=== PATIENT | male | born 1950 | race Caucasian/White ===

== ENCOUNTER 2023-07-28 17:45 | Inpatient (IN) | payer MEDICARE, OTHER, SELFPAY ==
[2023-07-28] VITALS (12 sets, daily range): BP systolic 95–145; BP diastolic 60–104; BMI 25.4; BMI 25.1
[2023-07-28 11:20] LABS: % Basophils 0.3 % (0-2); % Eosinophils 1.6 % (0-6); % Immature Granulocytes 0.4 % (0-0.5); % Lymphocytes 12.3 % (20.5-51.1); % Monocytes 7.5 % (1.7-9.3); % Neutrophils 77.9 % (42.2-75.2); Absolute Eosinophils 0.2 10^3/uL (0-0.7); Absolute Lymphocytes 1.2 10^3/uL (1.2-3.4); Absolute Monocytes 0.7 10^3/uL (0.1-0.6); Absolute Neutrophils 7.5 10^3/uL (1.4-6.5); Hematocrit 38.9 % (39.0-52.0); Hemoglobin 13.1 g/dL (13.0-18.0); Mean Corp Hgb Conc. 33.7 g/dL (33.0-37.0); Mean Corpuscular Hgb 27.8 pg (27.0-31.0); Mean Corpuscular Volume 82.4 fL (80.0-94.0); Mean Platelet Volume 9.4 fL (7.4-10.4); Nucleated Red Blood Cells % 0 % (-); Platelet Count 276 10^3/uL (130-400); Red Blood Cell Count 4.72 10^6/uL (4.70-6.10); Red Cell Dist. Width 14.2 % (11.5-14.5); White Blood Cell Count 9.6 10^3/uL (4.8-10.8)
[2023-07-28 11:40] LABS: INR 2.93
[2023-07-28 11:41] LABS: Albumin 2.9 g/dl (3.5-5.0); Chloride 102 mmol/L (98-107); Potassium 4.3 mmol/L (3.5-5.1); Sodium 134 mmol/L (135-145)
[2023-07-28 11:45] LABS: NT-proBNP 3380 pg/ml; Troponin I 0.013 ng/ml
[2023-07-28 11:52] LABS: ALT (SGPT) 29 U/L (0-50); AST (SGOT) 28 U/L (17-59); Alkaline Phosphatase 106 U/L (38-126); Blood Urea Nitrogen 14 mg/dl (9-20); Calcium 8.4 mg/dl (8.4-10.2); Carbon Dioxide 25 mmol/L (22-30); Estimated Creatinine Clearance 85 ml/min; Glucose 100 mg/dl (70-99); Magnesium 1.8 mg/dl (1.6-2.3); Total Protein 5.8 g/dl (6.3-8.2); eGFR > 60.00
[2023-07-28 12:22] LABS: Total Bilirubin 0.8 mg/dl (0.2-1.3)
--- NOTE | 2023-07-28 14:28 | CON.CAR ---
Addendum entered and electronically signed by Devan Aponte DO 07/28/23 16:52:
I saw and examined the patient.
The Event Sales Manager's note was reviewed and I agree with the note.
Comment:
Plan:
Recent monitor personally reviewed showing increase in AFib burden to 47% and episodes of AFib with RVR
Cont coumadin anticoagulation for MVR and AFib
Start Amiodarone load at 400 mg TID to maintain sinus as pt in sinus. Monitor QTc, currently stable.
Eventual consideration for PVI as outpt given symptomatic aFib recurrence with drop in EF to now 25-30%
Both echo today and echo from March 2023 personally reviewed.
CM likely worsened from AFib/tachy mediated.
Trend troponins, first was negative and pt had recent stress negative for ischemia.
Fatigue and reduced stamina likely secondary to increased AFib burden and worsened CM. Pt also in HFrEF.
Start IV lasix 40 mg daily. Follow Is and Os and daily wts and cr
Diuresis and CM regimen may be limited by chronic hypotension.
Cont low dose Coreg and Lisinopril. Consider Aldactone if bp can tolerate.
Cont ASA, Lipitor and Zetia for CABG hx and hyperlipidemia.
Discussed with ER and with at bedside.
Original Note:
Consultation
Consultation Request
Date/Time Consultation Requested: 07/28/2023
Date/Time Consultation Performed: 07/28/2023 at 1430
Requesting Provider: Edwin Ayala PA-C
Performing Provider: Dr. Aponte
Reason for Consultation: PEDROZA, palpitations
Medical History
-
History of Present Illness:
HPI: Ralf is a 73 year old male with PMH of CAD, ischemic CM, chronic HFrEF, paroxysmal atrial fibrillation, mitral valve replacement, GERD, LBBB, hypertension, hyperlipidemia, and anxiety who presents to ER for evaluation of ongoing dyspnea
on exertion and palpitations. He had COVID in May 2023 and then was treated for pneumonia as well. He has been having ongoing dizziness and palpitations. He has been concerned that he has been having recurrences of atrial fibrillation. He
was recently seen in the cardiology office on 07/15/2023 and was placed on lower dose Coreg 3.125 mg twice daily. He also was arranged for a 7-day CAM monitor. He continued to feel poorly and came into ER today for further workup and evaluation.
In ER, workup thus far has been unremarkable with EKG revealing sinus rhythm. His blood pressure and heart rate are stable. Lab work also unremarkable with normal blood count and negative troponin x 1. Cardiology consulted for evaluation given
ongoing symptoms.
PMH:
CAD
NSTEMI 05/2018 with Stenting of OM2 with 3.0 x 38 mm Promus stent post dilated with 3.0 mm NC balloon
s/p CABG 06/07/2018, GIL to LAD and saphenous vein graft to PDA
Ischemic cardiomyopathy
Chronic HFrEF
Paroxysmal atrial fibrillation
Chronic Coumadin therapy
Mitral valve repair w/ [place]-Fawad izabella-chords to A2 and 26mm annuloplasty ring 06/07/2018
Re-exploration with evacuation of pericardial fluid and modified Robicsek weave reclosure 06/16/18
s/p redo #[id number] [place] [facility] mitral valve replacement 10/17/18
GERD/dysphagia, s/p esophageal dilatation 08/2018 at [facility]
Rate dependent LBBB
Hypertension
Hyperlipidemia
Anxiety/depression
h/o moderate alcohol use/abuse
Past Medical History
Past Medical History: Other (In HPI)
Past Surgical History: Cardiac (PCI of OM 2, CABGx2 05/2018, mitral valve repair 2017, mitral valve replacement 2018) and Other (Esophageal dilation, elbow surgery 05/2023)
Social History
Tobacco: Non-Smoker
Alcohol: Occasional
Drug: None
Personal:
Living: With Family
Employment: Retired
Family History
Family History: CAD
Allergies / Home Medications
Allergy/AdvReac Type Severity Reaction Status Date / Time
No Known Allergies Allergy Verified 07/28/23 10:13
Medication Instructions Recorded Confirmed Type
trazodone 100 mg tablet 100 mg PO HS 05/15/18 10/22/19 History
aspirin 81 mg tablet,delayed 81 mg PO DAILY 06/24/18 10/22/19 Rx
release
furosemide 20 mg tablet 20 mg PO DAILYPRN PRN edema 07/10/18 10/22/19 History
acetaminophen 325 mg tablet 650 mg PO Q4HPRN PRN HEADACHE OR 10/23/18 10/22/19 Rx
FEVER > 101F
atorvastatin 40 mg tablet 80 mg PO QPM 10/22/19 10/22/19 History
carvedilol 3.125 mg tablet 3.125 mg PO BID 10/22/19 10/22/19 History
lisinopril 5 mg tablet 5 mg PO DAILY 10/22/19 10/22/19 History
loratadine 10 mg tablet 10 mg PO DAILY PRN seasonal 10/22/19 10/22/19 History
allergies
warfarin 4 mg tablet (Jantoven) 8 mg PO QPM 10/22/19 10/22/19 History
Review of Systems
-
History Source: Patient
All other systems: Negative unless noted
Physical Exam
Vital Signs
Temp Pulse Resp BP Pulse Ox
98.3 F 85 17 117/77 96
07/28/23 10:10 07/28/23 14:00 07/28/23 14:00 07/28/23 14:00 07/28/23 14:00
Lab Results
07/28/23 11:08
07/28/23 11:08
Troponin I 0.013 ng/ml 07/28/23 11:08
Mai-K-Rajhuwkinib Pept 3380 pg/ml 07/28/23 11:08
Physical Exam
General: Well Developed, Well Nourished and No Apparent Distress
HEENT: Normocephalic, Anicteric and Moist Mucous Membranes
Respiratory: Clear and Non Labored Respirations
Cardiac: S1/S2 and Regular Rhythm
Musculoskeletal: No Clubbing, No Cyanosis and No Edema
Skin: Warm and Dry
Neuro: Nonfocal/Grossly Intact
Psych: Calm
Impression / Plan
-
PCP: Dr. Kanwal Schmitz
Cardiology: Dr. Aponte
Impression:
Presented with palpitations and dyspnea on exertion
Paroxysmal atrial fibrillation, burden 47% by recent monitor
Chronic Coumadin anticoagulation
CAD
NSTEMI 05/2018 with Stenting of OM2 with 3.0 x 38 mm Promus stent post dilated with 3.0 mm NC balloon
s/p CABG 06/07/2018, GIL to LAD and saphenous vein graft to PDA
Ischemic cardiomyopathy
Chronic HFrEF
Mitral valve repair w/ [place]-Fawad izabella-chords to A2 and 26mm annuloplasty ring 06/07/2018
Re-exploration with evacuation of pericardial fluid and modified Robicsek weave reclosure 06/16/18
s/p redo #29 [place] [facility] mitral valve replacement 10/17/18
GERD/dysphagia, s/p esophageal dilatation 08/2018 at [facility]
Rate dependent LBBB
Hypertension
Hyperlipidemia
Anxiety/depression
h/o moderate alcohol use/abuse
Lexiscan stress test 03/06/2023: Perfusion imaging reveals a small-medium area of mildly decreased perfusion that is fixed in the basal inferolateral segment, basal inferior segment, mid inferolateral segment, mid inferior segment, and apical inferior
segment consistent with infarction. EF 49%.
Echo 04/07/2023: EF 42%, mild concentric LVH, mild global hypokinesis, s/p # 29 mechanical [place] mitral valve with peak/mean gradients 8/4 mmHg, no MR, aortic sclerosis with trace AR, trace TR, estimated PAP 21 mmHg
Echo 07/28/2023: EF 25-30%, global hypokinesis with more hypokinesis of the anteroseptal wall and apex, biatrial enlargement, s/p #[address] [place] mechanical mitral valve prosthesis with peak/mean gradients 10/5 mmHg, trace MR
Plan:
-Presented with dyspnea on exertion and palpitations. In sinus rhythm by EKG and on review of telemetry.
-Of note, he had recent 7 day CAM monitor which revealed Afib burden is 47%.
-It is possible that he is symptomatic with recurrences of atrial fibrillation.
-Will start amiodarone loading in attempt to maintain SR and improve symptoms. Will start amiodarone 200mg BID for 1 month and then will decrease to 200mg daily thereafter
-QTc stable at 477ms.
-If he is in afib when he is seen in follow up, would arrange for CV.
-Continue coumadin for anticoagulation given Afib and mechanical mitral valve. Goal INR 2.5-3.5, ideally closer to 2.5 given prior hemorrhage
-Initial troponin negative at 0.013. Will repeat.
-Echo repeated and showed EF now down. Will admit and load with amiodarone. Will also gently diurese with IV lasix 40mg daily.
-Check orthostatic VS.
-Continue coreg at lower dose 3.125mg BID. Continue lisinopril.
-Continue aspirin, lipitor, and zetia with h/o CAD.
HPI: Ralf is a 73 year old male with PMH of CAD, ischemic CM, chronic HFrEF, paroxysmal atrial fibrillation, mitral valve replacement, GERD, LBBB, hypertension, hyperlipidemia, and anxiety who presents to ER for evaluation of ongoing dyspnea
on exertion and palpitations. He had COVID in May 2023 and then was treated for pneumonia as well. He has been having ongoing dizziness and palpitations. He has been concerned that he has been having recurrences of atrial fibrillation. He
was recently seen in the cardiology office on 07/15/2023 and was placed on lower dose Coreg 3.125 mg twice daily. He also was arranged for a 7-day CAM monitor. He continued to feel poorly and came into ER today for further workup and evaluation.
In ER, workup thus far has been unremarkable with EKG revealing sinus rhythm. His blood pressure and heart rate are stable. Lab work also unremarkable with normal blood count and negative troponin x 1. Cardiology consulted for evaluation given
ongoing symptoms.
Data Reviewed
-
EKG: Tracing Personally Visualized and interpreted
Radiology: Report Reviewed by me
Labs: Labs Reviewed by me
Old Records: Reviewed
--- NOTE | 2023-07-28 16:33 | ED.GENMED ---
History of Present Illness
General
Chief Complaint: Heart Rate Problem
Source: patient and spouse
Exam Limitations: none
Time Seen by Provider: 07/28/23 10:36
Nursing documentation reviewed up to this point in time: agreed with
Travel History
Have you had any contact with someone who has COVID-19?: No
Do you have any symptoms of coronavirus? Fever > 100 degrees, chills, cough, shortness of breath, sore throat, loss of taste or smell, muscle aches, or headache?: Yes
Symptoms:: see note
History of Present Illness
History of Present Illness:
73-year-old male with past medical history of A-fib currently on Coumadin, CHF CAD presenting to the emergency department today with concerns of worsening exercise tolerance and dyspnea on exertion over the past few weeks. Had COVID preceding the
worsening. Initially the symptoms roughly 1 month ago. Has had some mild ongoing cough but denies any fevers has had some mild intermittent left-sided chest discomfort as well described as achy made worse with coughing and palpation. Denies
vomiting has had some nausea.
Past History
Past History
ED Past Medical History: Arrthythmia (Atrial fibrillation), CAD, CHF, Psychiatric (Anxiety/depression) and Other (Pneumonia, left bundle branch block, anemia, mitral valve replacement)
Social History
Tobacco: Non-smoker
Alcohol: None
Drug: None
Personal:
Living: with family
Review of Systems
Review of Systems
Allergies reviewed?: Yes
All Other Systems: ROS reviewed and negative except as documented in HPI and ROS
Phy Exam
Physical Exam
Physical Exam:
GENERAL: Alert , in no apparent distress
EYE: pupils equal and reactive
NECK: Supple, no significant adenopathy.
ENT: o/p clr, mmm.
CARDIAC: Regular rate and rhythm .
LUNGS: Clear breath sounds bilaterally, no acute respiratory distress, no wheezes/rales/rhonchi
ABDOMEN: Soft, without focal tenderness, no r/g, no cvat
NEUROLOGICAL: Alert and oriented, no focal neuro deficits
SKIN: Warm and dry, skin intact.
MUSCULOSKELETAL: No edema, well perfused.
PSYCH: Normal and appropriate interaction.
Course
Orders/Labs/Results
Orders:
Orders
07/28/23 10:38
Electrocardiogram (*1) Stat
Reason for Study: Other
Other Reason for Exam: chest pain
EKG- Treatment ONCE
CR Chest - 2 Views Urgent
Comment:
Reason For Exam: cp
07/28/23 11:08
Complete Blood Count/With Diff Urgent
Comprehensive Metabolic Panel Urgent
Magnesium Urgent
NT-proBNP Urgent
PT/INR [Prothrombin Time] Urgent
Troponin I Urgent
07/28/23 14:03
Orthostatic VS- Treatment ONCE
07/28/23 14:26
Echo 2D MMode Color/Doppler Routine
Reason for Study: cardiomyopathy, fatigue, PEDROZA
07/28/23 Dinner
Cholesterol Lowering
At Your Request: Full Participation
Does patient need a safe tray?: No
Cholesterol Lowering: Sodium, 2 Gram
07/28/23 16:59
Admit/Transfer Patient As Directed
Co-Sign Provider:
Level of Care: Inpatient admission
Assign to:: Telemetry
Physician / Group: augusto
Diagnosis: chf exacerbation
Reason for Telemetry: Pulmonary Edema
Date to Stop Telemetry: 07/31/23
Time to Stop Telemetry: 11:00
Reason for Hospitalization: chf exacerbation
Expected length of stay greater than two midnights?: Yes
ELOS- Estimated Length of Stay in days: 2
I certify the patient meets the requirements for IP care: Yes
Code Status As Directed
Resuscitation Status: Full Code
07/28/23 17:04
Orthostatic Vital Signs As Directed
Orthostatic VS Frequency: Now
07/28/23 17:22
Troponin I Urgent
07/28/23 22:00
Amiodarone [Pacerone] 400 mg PO TID
07/29/23 06:00
Electrocardiogram (*1) IN AM
Reason for Study: QTc Monitoring
07/29/23 08:00
Furosemide [Lasix] 40 mg IV DAILY
07/31/23 11:00
DC Protocol for Telemetry ONCE
Abnormal Lab Results
07/28/23
11:08
Hct 38.9 L %
(39.0-52.0)
Absolute Neuts (auto) 7.5 H 10^3/uL
(1.4-6.5)
Absolute Monos (auto) 0.7 H 10^3/uL
(0.1-0.6)
Neutrophils % 77.9 H %
(42.2-75.2)
Lymphocytes % 12.3 L %
(20.5-51.1)
PT 31.0 H Sec
(11.4-14.6)
Sodium 134 L mmol/L
(135-145)
Glucose 100 H mg/dl
(70-99)
Total Protein 5.8 L g/dl
(6.3-8.2)
Albumin 2.9 L g/dl
(3.5-5.0)
07/28/23 11:08
07/28/23 11:08
Vital Signs
Initial and Last Documented VS:
Initial Vital Signs
Temp Pulse Resp BP Pulse Ox
98.3 F 97 16 119/79 96
07/28/23 10:10 07/28/23 10:10 07/28/23 10:10 07/28/23 10:10 07/28/23 10:10
Last Documented Vital Signs
Temp Pulse Resp BP Pulse Ox
98.3 F 95 16 129/104 94
07/28/23 10:10 07/28/23 15:37 07/28/23 14:45 07/28/23 15:36 07/28/23 15:37
MDM/Problems Addressed
MDM/Problems Addressed:
73-year-old male presenting to the emergency department today with concerns of worsening shortness of breath specifically with exertion over the past few weeks this worsening occurred immediately after having COVID. Here vital signs are normal
patient generally in no distress. Lungs are clear heart sounds normal. Not in A-fib here labs showing mildly elevated BNP in the 3000 otherwise labs unremarkable initial troponin negative. Case was discussed with cardiology that saw the patient
and did an echo while in the ER. The echo showed decreased ejection fraction to roughly 30%. Was recommended that he get admitted for further treatment for heart failure. Given initial dose of Lasix in the ER.
*Critical Care Note
Total Time (30-74mins, 75-104mins- exclusive of procedures): Not Applicable
ED Attending Note
-
Portions of this chart may have been created with voice recognition software.� Occasional wrong word or��sound alike� substitutions may have occurred due to the inherent limitations of voice recognition software.
Discharge Plan
Departure
Patient Disposition: Admit
Date of Disposition: 07/28/23
Time of Disposition: 16:33
Admit to: Telemetry
Admit to doctor: Cheryl
Presentation/result/management discussed w/ accepting MD/DO: Hospitalist
Patient with high blood pressure during this ER visit?: No
Condition: Good
Covid-19: Not Applicable
Discharge Problem:
Heart failure
Prescriptions:
No Action
trazodone 100 MG tablet
100 mg PO HS
aspirin 81 MG tablet,delayed release (DR/EC)
81 mg PO DAILY 0RF
carvedilol 3.125 MG tablet
3.125 mg PO BID
warfarin [Jantoven] 4 MG tablet
7 mg PO QPM
lisinopril 5 MG tablet
2.5 mg PO DAILY
atorvastatin [Lipitor] 80 mg Tablet
80 mg PO QPM
acetaminophen [Tylenol Extra Strength] 500 mg Tablet
1,000 mg PO HS
Referrals:
Princess Schmitz MD [Family Provider] -
Interventions
Interventions:
*Risk Screen - Suicide Last Done: 07/28/23 10:53
*General Assessment Last Done: 07/28/23 10:53
*Neglect/Abuse Screening Last Done: 07/28/23 10:53
ED- Fall Risk Assessment Last Done: 07/28/23 10:53
*ED COVID-19 Vaccine History Last Done: 07/28/23 10:53
ED- Cardiac Assessment Last Done: 07/28/23 10:53
ED- Pulmonary Assessment Last Done: 07/28/23 10:53
--- NOTE | 2023-07-28 17:02 | HPS.HSE ---
Family Physician
-
Family Physician: Princess Schmitz
Chief Complaint
-
shortness of breath
History of Present Illness
73-year-old male with past medical history of CAD status post CABG, ischemic cardiomyopathy, HFrEF, paroxysmal atrial fibrillation on Coumadin, mechanical mitral valve replacement,, left bundle branch block, hypertension, GERD, hyperlipidemia,
anxiety, alcohol use disorder, presenting with persistent weakness since May when he had COVID infection. He states since then he has had a lingering cough which is slowly getting better. This is associated with shortness of breath with
exertion as well as dizziness when he stands up. He has chest soreness with palpation as well as cough. He denies palpitations but denies passing out. Denies any fevers or chills. Denies any lower extreme edema. He has lost 14 pounds since
May but has gained 4 pounds in the past week as per his bike technician.
Patient denies smoking. When he drinks alcohol he drinks 1 beer per day until the case runs out. His last drink was a week ago.
Medical History
Past Medical History
Past Medical History: Reports Other (CAD status post CABG, ischemic cardiomyopathy, HFrEF, paroxysmal atrial fibrillation on Coumadin, mechanical mitral valve replacement,, left bundle branch block, hypertension, GERD, hyperlipidemia, anxiety,
alcohol use disorder,)
Past Surgical History: Reports Other (Cardiac (PCI of OM 2, CABGx2 05/2018, mitral valve repair 2017, mitral valve replacement 2018) and Other (Esophageal dilation, elbow surgery 05/2023))
Social History
Tobacco: Non-smoker
Alcohol: Occasional
Drug: None
Family History
Family History: Not pertinent
Allergies / Home Medications
Allergies reflects when Allergies were last updated in [employer].
Home Medications with original date entered in [employer]
Allergy/Medication List:
Allergies
Allergy/AdvReac Type Severity Reaction Status Date / Time
No Known Allergies Allergy Verified 07/28/23 10:13
Home Medications
trazodone 100 mg tablet 100 mg PO HS 05/15/18
aspirin 81 mg tablet,delayed release 81 mg PO DAILY 06/24/18
carvedilol 3.125 mg tablet 3.125 mg PO BID 10/22/19
lisinopril 5 mg tablet 2.5 mg PO DAILY 10/22/19
warfarin 4 mg tablet (Jantoven) 7 mg PO QPM 10/22/19
acetaminophen 500 mg tablet (Tylenol Extra Strength) 1,000 mg PO HS 07/28/23
atorvastatin 80 mg tablet (Lipitor) 80 mg PO QPM 07/28/23
Review of Systems
-
History Source: Patient
A 12 point ROS was completed and negative except as noted: Yes
Constitutional: Reports No Symptoms
EENT: Reports No Symptoms
Respiratory: Reports See HPI
Cardiac: Reports See HPI
Abdomen/GI: Reports No Symptoms
: Reports No Symptoms
Musculoskeletal: Reports No Symptoms
Skin: Reports No Symptoms
Neurological: Reports No Symptoms
Endocrine: Reports No Symptoms
Hematologic/Lymphatic: Reports No Symptoms
Psych: Reports No Symptoms
Physical Exam
Vital Signs
Vital Signs
Temp Pulse Resp BP Pulse Ox
98.3 F 95 16 129/104 94
07/28/23 10:10 07/28/23 15:37 07/28/23 14:45 07/28/23 15:36 07/28/23 15:37
Physical Exam
General: Well Developed, Well Nourished and No Apparent Distress
HEENT: NormoCephalic, Moist mucous membranes and Atraumatic
Respiratory: Clear
Cardiac: S1/S2 and Regular Rhythm; No Murmur or Rub
GI: Soft, Non Tender, Non Distended and Normal Bowel Sounds; No Organomegaly
Rectal: Deferred by Provider
Musculoskeletal: No Clubbing, No Cyanosis and No Edema
Skin: No Rash
Neuro: Nonfocal/grossly intact
Laboratory Results
-
07/28/23 11:08
07/28/23 11:08
Laboratory Results
PT 31.0 Sec (11.4-14.6) H 07/28/23 11:08
INR 2.93 07/28/23 11:08
Total Bilirubin 0.8 mg/dl (0.2-1.3) 07/28/23 11:08
AST 28 U/L (17-59) 07/28/23 11:08
ALT 29 U/L (0-50) 07/28/23 11:08
Alkaline Phosphatase 106 U/L (38-126) 07/28/23 11:08
Troponin I 0.013 ng/ml 07/28/23 11:08
Data Reviewed
-
Lab Data: Labs Reviewed by me
Old Records: Reviewed
Impression/Plan
-
IMPRESSION:
PLAN:
# Acute on chronic HFrEF exacerbation
# Ischemic cardiomyopathy
-Cardiac BNP 3300
-Chest x-ray shows small new right pleural effusion
-40 IV Lasix daily
-Check I's and O's, daily weights
-Cardiology following
# Likely recurrences of atrial fibrillation
-EKG shows sinus rhythm with first-degree block, left interventional
-Recent CAM monitor with A-fib burden of 47%
-Amiodarone loading as per cardiology
-Check orthostatic vitals
-Continue low-dose Coreg
#Non-OH troponin elevation
#CAD status post CABG
-Troponin 0.013
-Trend troponins
-Continue aspirin, Lipitor,
History of mitral valve replacement with mechanical valve
-INR 2.93
-Goal INR 2.5-3.5
-Continue Coumadin
History of left bundle branch block
Essential hypertension
-Continue lisinopril
GERD
Hyperlipidemia
-Continue statin
Anxiety
-Continue trazodone
History of alcohol use disorder
Full code
DVT prophylaxis- Coumadin
Cardiac diet
[2023-07-28 17:58] LABS: Troponin I 0.016 ng/ml
--- NOTE | 2023-07-28 18:37 | PTCARENOTE ---
Received patient from ER at 1820 awake alert and oriented . denies any c/o pain or discomfort. Gait slow and steady, reports having a fall before Thanksgiving- he was vacuuming wifes car and tripped over the shop vac chord. Aware to ring for
assistance. With at present , call walker in reach.Having dinner at present.
[2023-07-28 19:27] LABS: Troponin I 0.016 ng/ml
[2023-07-28] MEDS: LIPITOR 80 MG PO (20:13)
[2023-07-28] MEDS: COUMADIN 5 MG PO (20:13)
[2023-07-28] MEDS: COUMADIN 2 MG PO (20:14)
[2023-07-28] MEDS: COREG 3.125 MG PO (20:22)
[2023-07-28] MEDS: TYLENOL 1000 MG PO (21:58)
[2023-07-28] MEDS: PACERONE 400 MG PO (21:58)
[2023-07-28] MEDS: DESYREL 100 MG PO (21:59)
[2023-07-29] VITALS (7 sets, daily range): BP systolic 100–127; BP diastolic 52–80; PULSE 71–80; BMI 24.6
[2023-07-29 01:09] LABS: Troponin I 0.014 ng/ml
[2023-07-29 07:10] LABS: % Basophils 0.3 % (0-2); % Eosinophils 3.1 % (0-6); % Immature Granulocytes 0.3 % (0-0.5); % Lymphocytes 16.2 % (20.5-51.1); % Monocytes 9.3 % (1.7-9.3); % Neutrophils 70.8 % (42.2-75.2); Absolute Eosinophils 0.2 10^3/uL (0-0.7); Absolute Monocytes 0.6 10^3/uL (0.1-0.6); Absolute Neutrophils 4.4 10^3/uL (1.4-6.5); Hematocrit 38.6 % (39.0-52.0); Hemoglobin 12.5 g/dL (13.0-18.0); Mean Corp Hgb Conc. 32.4 g/dL (33.0-37.0); Mean Corpuscular Hgb 27.6 pg (27.0-31.0); Mean Corpuscular Volume 85.2 fL (80.0-94.0); Mean Platelet Volume 9.2 fL (7.4-10.4); Nucleated Red Blood Cells % 0 % (-); Platelet Count 235 10^3/uL (130-400); Red Blood Cell Count 4.53 10^6/uL (4.70-6.10); Red Cell Dist. Width 14.2 % (11.5-14.5); White Blood Cell Count 6.2 10^3/uL (4.8-10.8)
[2023-07-29 07:12] LABS: INR 3.06; PT 32.1 Sec (11.4-14.6)
[2023-07-29 07:26] LABS: Troponin I < 0.012 ng/ml
--- NOTE | 2023-07-29 08:37 | W.PN.HOSP.TC ---
Today's Communication/Plan
-
see bold
Assessment / Plan
Assessment / Plan
HPI: 73-year-old male with past medical history of CAD status post CABG, ischemic cardiomyopathy, HFrEF, paroxysmal atrial fibrillation on Coumadin, mechanical mitral valve replacement,, left bundle branch block, hypertension, GERD, hyperlipidemia,
anxiety, alcohol use disorder, presenting with persistent weakness since May when he had COVID infection.� He states since then he has had a lingering cough which is slowly getting better.� This is associated with shortness of breath with
exertion as well as dizziness when he stands up.� He has chest soreness with palpation as well as cough.� He denies palpitations but denies passing out.� Denies any fevers or chills.� Denies any lower extreme edema.� He has lost 14 pounds since
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
#Acute on chronic HFrEF exacerbation
#Ischemic cardiomyopathy
Cardiac BNP 3300
Chest x-ray shows small new right pleural effusion
Appreciate cardiology input, improving on Lasix 40 mg IV daily
Trend creatinine, trend daily weights
# Paroxysmal atrial fibrillation
EKG shows sinus rhythm with first-degree block, left interventional
Recent CAM monitor with A-fib burden of 47%
Amiodarone loading as per cardiology
Continue low-dose Coreg
#Non-CT troponin elevation
#CAD status post CABG
Serial troponins negative, continue aspirin, coreg, lisinopril, and Lipitor
#History of mitral valve replacement with mechanical valve
INR therapeutic, continue Coumadin
History of left bundle branch block
GERD
Hyperlipidemia
-Continue statin
Anxiety
-Continue trazodone
History of alcohol use disorder
DVT prophylaxis- Coumadin
Full code
Physical Exam
General: No acute distress
HEENT: Normocephalic, Atraumatic, EOMI, MMM
Respiratory: Clear to Auscultation bilaterally
Cardiac: Normal S1/S2, Regular Rate and Rhythm
GI: Soft, Nontender, Nondistended, Normal Bowel Sounds
Extremities: No Clubbing, Cyanosis
Mild bilateral lower extremity edema
Anticipated Discharge: Within 24 hours
Subjective/Interval History
-
Date of Service: July 29, 2023
Orthopnea improved.
Objective Data
-
Labs:
Laboratory Results
07/29/23
06:50
WBC 6.2
Hgb 12.5 L
Hct 38.6 L
Plt Count 235
PT 32.1 H
INR 3.06
Sodium Pending
Potassium Pending
Chloride Pending
Carbon Dioxide Pending
BUN Pending
Creatinine Pending
Glucose Pending
Calcium Pending
Total Bilirubin Pending
AST Pending
ALT Pending
Alkaline Phosphatase Pending
Vital Signs:
Vital Signs
Temp Pulse Resp BP Pulse Ox
97.6 F 70 18 101/52 97
07/29/23 03:30 07/29/23 03:30 07/29/23 03:30 07/29/23 03:30 07/29/23 03:30
I&O
07/28/23 07/29/23 07/30/23
06:59 06:59 06:59
Intake Total 240 / 240
Output Total 125 / 125
Balance 115 / 115
[2023-07-29] MEDS: ZESTRIL 2.5 MG PO (08:45)
[2023-07-29 08:46] LABS: ALT (SGPT) 28 U/L (0-50); AST (SGOT) 26 U/L (17-59); Albumin 2.9 g/dl (3.5-5.0); Alkaline Phosphatase 107 U/L (38-126); Blood Urea Nitrogen 12 mg/dl (9-20); Calcium 8.4 mg/dl (8.4-10.2); Carbon Dioxide 31 mmol/L (22-30); Chloride 104 mmol/L (98-107); Estimated Creatinine Clearance 68 ml/min; Glucose 91 mg/dl (70-99); Potassium 4.6 mmol/L (3.5-5.1); Sodium 133 mmol/L (135-145); Total Bilirubin 0.8 mg/dl (0.2-1.3); Total Protein 5.4 g/dl (6.3-8.2); eGFR > 60.00
[2023-07-29] MEDS: COREG 3.125 MG PO ×2 (08:46→20:13)
[2023-07-29] MEDS: ASPIR LOW (ENTERIC COATED) 81 MG PO (08:47)
[2023-07-29] MEDS: PACERONE 400 MG PO ×3 (08:47→21:16)
[2023-07-29] MEDS: LASIX 40 MG IV (08:48)
[2023-07-29] MEDS: COUMADIN 5 MG PO (17:11)
[2023-07-29] MEDS: LIPITOR 80 MG PO (17:11)
[2023-07-29] MEDS: COUMADIN 2 MG PO (17:12)
--- NOTE | 2023-07-29 17:33 | CM ---
cardroom manager reviewed patient's chart and met with patient and patient lives with spouse in a one story home with basement, patient is independent with adl's and ambulation, no dme, patient drives, patient has a prescription plan and uses [facility]
pharm[facility].
PCP: Princess Schmitz
Plan; Home when stable, no needs.
--- NOTE | 2023-07-29 17:46 | W.PN.CARDCBS ---
Today's Communication / Plan
-
cont IV lasix. weight down to 186
Cont Amio load
Afib burden donw overall
Creat normal
Impression / Plan
-
PCP: Dr. Kanwal Schmitz
Cardiology: Dr. Aponte
Impression:
Presented with palpitations and dyspnea on exertion
Paroxysmal atrial fibrillation, burden 47% by recent monitor
Chronic Coumadin anticoagulation
CAD
NSTEMI 05/2018 with Stenting of OM2 with 3.0 x 38 mm Promus stent post dilated with 3.0 mm NC balloon
s/p CABG 06/07/2018, GIL to LAD and saphenous vein graft to PDA
Ischemic cardiomyopathy
Chronic HFrEF
Mitral valve repair w/ [place]-Fawad izabella-chords to A2 and 26mm annuloplasty ring 06/07/2018
Re-exploration with evacuation of pericardial fluid and modified Robicsek weave reclosure 06/16/18
s/p redo #29 [employer]ian mitral valve replacement 10/17/18
GERD/dysphagia, s/p esophageal dilatation 08/2018 at [facility]
Rate dependent LBBB
Hypertension
Hyperlipidemia
Anxiety/depression
h/o moderate alcohol use/abuse
Lexiscan stress test 03/06/2023: Perfusion imaging reveals a small-medium area of mildly decreased perfusion that is fixed in the basal inferolateral segment, basal inferior segment, mid inferolateral segment, mid inferior segment, and apical inferior
segment consistent with infarction. EF 49%.
Echo 04/07/2023: EF 42%, mild concentric LVH, mild global hypokinesis, s/p # 29 mechanical [place] [employer]ian mitral valve with peak/mean gradients 8/4 mmHg, no MR, aortic sclerosis with trace AR, trace TR, estimated PAP 21 mmHg
Echo 07/28/2023: EF 25-30%, global hypokinesis with more hypokinesis of the anteroseptal wall and apex, biatrial enlargement, s/p #[address] Willian mechanical mitral valve prosthesis with peak/mean gradients 10/5 mmHg, trace MR
Plan:
-cont Amiodarone load. Afib burden has decreased.
-cont Iv Lasix. weight is down.
-Continue coumadin for anticoagulation given Afib and mechanical mitral valve. Goal INR 2.5-3.5, ideally closer to 2.5 given prior hemorrhage
-Initial troponin negative at 0.013. Will repeat.
-Check orthostatic VS.
-Continue coreg at lower dose 3.125mg BID. Continue lisinopril.
-Continue aspirin, lipitor, and zetia with h/o CAD.
HPI: Ralf is a 73 year old male with PMH of CAD, ischemic CM, chronic HFrEF, paroxysmal atrial fibrillation, mitral valve replacement, GERD, LBBB, hypertension, hyperlipidemia, and anxiety who presents to ER for evaluation of ongoing dyspnea
on exertion and palpitations. He had COVID in May 2023 and then was treated for pneumonia as well. He has been having ongoing dizziness and palpitations. He has been concerned that he has been having recurrences of atrial fibrillation. He
was recently seen in the cardiology office on 07/15/2023 and was placed on lower dose Coreg 3.125 mg twice daily. He also was arranged for a 7-day CAM monitor. He continued to feel poorly and came into ER today for further workup and evaluation.
In ER, workup thus far has been unremarkable with EKG revealing sinus rhythm. His blood pressure and heart rate are stable. Lab work also unremarkable with normal blood count and negative troponin x 1. Cardiology consulted for evaluation given
ongoing symptoms.
Progress Note - Risk Control Specialist
Subjective
Date of Service: July 29, 2023
feeling better. diuresing well.
Objective
Labs:
07/29/23 06:50
07/29/23 06:50
Labs
Hgb 12.5 g/dL (13.0-18.0) L 07/29/23 06:50
Hct 38.6 % (39.0-52.0) L 07/29/23 06:50
Plt Count 235 10^3/uL (130-400) 07/29/23 06:50
PT 32.1 Sec (11.4-14.6) H 07/29/23 06:50
INR 3.06 07/29/23 06:50
Sodium 133 mmol/L (135-145) L 07/29/23 06:50
Potassium 4.6 mmol/L (3.5-5.1) 07/29/23 06:50
BUN 12 mg/dl (9-20) 07/29/23 06:50
Creatinine 1.1 mg/dL (0.7-1.3) 07/29/23 06:50
Glucose 91 mg/dl (70-99) 07/29/23 06:50
Troponins
07/28/23 07/28/23 07/28/23
11:08 17:22 18:52
Troponin I 0.013 0.016 0.016
07/29/23 07/29/23
00:40 06:50
Troponin I 0.014 < 0.012
Vital Signs and I&O:
Vital Signs
Temp Pulse Resp BP Pulse Ox
98.0 F 93 18 112/71 95
07/29/23 15:30 07/29/23 15:30 07/29/23 15:30 07/29/23 15:30 07/29/23 15:30
Vital Signs
Temp Pulse Resp BP Pulse Ox
98.0 F 93 18 112/71 95
07/29/23 15:30 07/29/23 15:30 07/29/23 15:30 07/29/23 15:30 07/29/23 15:30
Intake & Output
07/27/23 07/28/23 07/29/23 07/30/23
06:59 06:59 06:59 06:59
Intake Total 240 / 240
Output Total 125 / 125
Balance 115 / 115
Physical Exam
Physical Exam
GEN: No distress, awake, Ox3
HEENT: supple, anicteric, mmm
LUNGS: scatt rhonchi
CV: Reg, S1/S2, 1/6 syst LSB, no gallop
ABD: soft, BS+, NT/ND
EXT: No edema
NEURO: Gross non-focal
SKIN: No rash
[2023-07-29] MEDS: TYLENOL 1000 MG PO (21:16)
[2023-07-29] MEDS: DESYREL 100 MG PO (21:16)
[2023-07-30 03:32] VITALS: BP 96/57
[2023-07-30 05:24] VITALS: BMI 24.3
[2023-07-30 07:22] LABS: Hematocrit 37.3 % (39.0-52.0); Hemoglobin 12.1 g/dL (13.0-18.0); Mean Corp Hgb Conc. 32.4 g/dL (33.0-37.0); Mean Corpuscular Hgb 27.2 pg (27.0-31.0); Mean Corpuscular Volume 83.8 fL (80.0-94.0); Mean Platelet Volume 9.3 fL (7.4-10.4); Platelet Count 228 10^3/uL (130-400); Red Blood Cell Count 4.45 10^6/uL (4.70-6.10); Red Cell Dist. Width 14.2 % (11.5-14.5); White Blood Cell Count 6.4 10^3/uL (4.8-10.8)
[2023-07-30 07:30] VITALS: BP 91/52
[2023-07-30 07:40] LABS: Blood Urea Nitrogen 17 mg/dl (9-20); Calcium 8.6 mg/dl (8.4-10.2); Carbon Dioxide 30 mmol/L (22-30); Chloride 99 mmol/L (98-107); Estimated Creatinine Clearance 74 ml/min; Glucose 102 mg/dl (70-99); Magnesium 1.9 mg/dl (1.6-2.3); Phosphorus 3.5 mg/dl (2.5-4.5); Potassium 4.3 mmol/L (3.5-5.1); Sodium 134 mmol/L (135-145); eGFR > 60.00
--- NOTE | 2023-07-30 07:59 | W.PN.HOSP.TC ---
Today's Communication/Plan
-
Cleared by cardiology for discharge
Assessment / Plan
Assessment / Plan
HPI: 73-year-old male with past medical history of CAD status post CABG, ischemic cardiomyopathy, HFrEF, paroxysmal atrial fibrillation on Coumadin, mechanical mitral valve replacement,, left bundle branch block, hypertension, GERD, hyperlipidemia,
anxiety, alcohol use disorder, presenting with persistent weakness since May when he had COVID infection.� He states since then he has had a lingering cough which is slowly getting better.� This is associated with shortness of breath with
exertion as well as dizziness when he stands up.� He has chest soreness with palpation as well as cough.� He denies palpitations but denies passing out.� Denies any fevers or chills.� Denies any lower extreme edema.� He has lost 14 pounds since
May but has gained 4 pounds in the past week as per his surgery aide.
#Acute on chronic HFrEF exacerbation
#Ischemic cardiomyopathy
Cardiac BNP 3300
Chest x-ray shows small new right pleural effusion
Appreciate cardiology input, resolving on Lasix 40 mg IV daily
Cleared by cardiology for discharge on Lasix 40 mg p.o. daily
Follow-up with Dr. Aponte in the office
# Paroxysmal atrial fibrillation
EKG shows sinus rhythm with first-degree block, left interventional
Recent CAM monitor with A-fib burden of 47%
Continue low-dose Coreg
Cardiology recommends discharge on amiodarone 200 mg twice a day for 1 month, then 200 mg daily
#Non-UT troponin elevation
#CAD status post CABG
Serial troponins negative
Continue aspirin, coreg, lisinopril, and Lipitor
#History of mitral valve replacement with mechanical valve
INR therapeutic, continue Coumadin
History of left bundle branch block
GERD
Hyperlipidemia
-Continue statin
Anxiety
-Continue trazodone
History of alcohol use disorder
DVT prophylaxis- Coumadin
Full code
Physical Exam
General: No acute distress
HEENT: Normocephalic, Atraumatic, EOMI, MMM
Respiratory: Clear to Auscultation bilaterally
Cardiac: Normal S1/S2, Regular Rate and Rhythm
GI: Soft, Nontender, Nondistended, Normal Bowel Sounds
Extremities: No Clubbing, Cyanosis
Mild bilateral lower extremity edema
Anticipated Discharge: Today
Subjective/Interval History
-
Date of Service: July 30, 2023
Reports feeling much better. No shortness of breath with ambulation, orthopnea continues to improve.
Objective Data
-
Labs:
Laboratory Results
07/30/23
06:50
WBC 6.4
Hgb 12.1 L
Hct 37.3 L
Plt Count 228
Sodium 134 L
Potassium 4.3
Chloride 99
Carbon Dioxide 30
BUN 17
Creatinine 1.0
Glucose 102 H
Calcium 8.6
Vital Signs:
Vital Signs
Temp Pulse Resp BP Pulse Ox
97.8 F 62 18 96/57 100
07/30/23 03:32 07/30/23 03:32 07/30/23 03:32 07/30/23 03:32 07/30/23 03:32
I&O
07/29/23 07/30/23 07/31/23
06:59 06:59 06:59
Intake Total 240 / 240 1730 / 1730
Output Total 125 / 125 1400 / 1400
Balance 115 / 115 330 / 330
[2023-07-30] MEDS: ASPIR LOW (ENTERIC COATED) 81 MG PO (09:50)
[2023-07-30] MEDS: COREG 3.125 MG PO (09:51)
[2023-07-30] MEDS: LASIX 40 MG IV (09:53)
[2023-07-30] MEDS: PACERONE 400 MG PO (09:57)
--- NOTE | 2023-07-30 10:34 | PTCARENOTE ---
am BP 91/52- Dr Nunez notified. AM Lisinoprandrew notified .
[2023-07-30] MEDS: ZESTRIL PO (10:39)
[2023-07-30 11:11] VITALS: BP 121/69
--- NOTE | 2023-07-30 13:21 | W.DCSUMMARY ---
Discharge Summary
Discharge Data
Date of Admission: 07/28/23
Date of Discharge: 07/30/23
-
Pending Results: No
Hospital Course
Discharge diagnosis:
Acute on chronic heart failure with reduced ejection fraction
Ischemic cardiomyopathy
Paroxysmal atrial fibrillation
Coronary artery disease status post coronary artery bypass graft surgery
History of mitral valve replacement with mechanical valve on Coumadin
History of left bundle branch block
Gastroesophageal reflux disease
Hyperlipidemia
Anxiety
Chronic obstructive pulmonary disease
Consults: Cardiology
Chest x-ray:
1). Chronic obstructive pulmonary disease with small new right pleural effusion
2). Stable postoperative changes with mild stable interstitial scarring in the left perihilar region and lower left lung
Hospital course:
73-year-old male with a past medical history of CAD status post CABG, ischemic cardiomyopathy, HFrEF, paroxysmal atrial fibrillation on Coumadin, mechanical mitral valve replacement, left bundle branch block, hypertension, GERD, hyperlipidemia,
anxiety, and alcohol use disorder, presented with dyspnea with activity, cough, and orthopnea. Patient was seen in conjunction with cardiology, and treated with IV Lasix for acute heart failure with a reduced ejection fraction.
Patient also has paroxysmal atrial fibrillation. He was loaded with amiodarone, and continued on his low-dose Coreg.
After several days, his breathing improved. He is medically stable and cleared by cardiology for discharge. Cardiology recommends he take amiodarone 200 mg twice a day for 1 week, followed by 200 mg daily. He is also discharged on Lasix 40 mg
p.o. daily.
He has been instructed to follow-up with cardiology in the office as well as his primary care doctor 1 week.
Disposition: Home self-care
Discharge planning: Required 36 minutes
Discharge Plan
-
Patient Disposition: Home (Routine Discharge)
Discharge Diagnosis/Procedures: Congestive heart failure, atrial fibrillation, mechanical mitral valve replacement on Coumadin
Condition: Good
Diet: Low Cholesterol and 2 Gram Sodium
Activity: As tolerated
Driving Restrictions: As prior to admission
Specialty Instructions: Weigh Daily- Call MD for wt gain/loss 3 lbs overnight/5 lbs in 1 week
Activity Restrictions/Additional Instructions:
Cardiology recommends discharge on amiodarone 200 mg twice a day for 1 month, then 200 mg daily.
Take Lasix/furosemide 40 mg daily.
Follow-up with cardiology in 2-3 weeks, and your primary care doctor 1 week.
Instructions: *[facility] Heart Failure Instructions
Referrals:
Devan Aponte DO [Active] - 08/05/23 11:20 am (You have a follow up with Dr. Aponte on August 05 at 11:20 am at the [facility] and [facility] in [place]. If you can not make this please call [phone] to reschedule)
Princess Schmitz MD [Family Provider] - in one week
Prescriptions:
New
amiodarone 200 mg tablet
See Rx Instructions .ROUTE .COMPLEX Qty: 60 0RF
Rx Instructions:
Amiodarone 200 mg twice a day for 1 month, then 200 mg daily
furosemide [Lasix] 40 mg tablet
40 mg PO DAILY Qty: 30 0RF
Continued
trazodone 100 MG tablet
100 mg PO HS
aspirin 81 MG tablet,delayed release (DR/EC)
81 mg PO DAILY 0RF
carvedilol 3.125 MG tablet
3.125 mg PO BID
warfarin [Jantoven] 4 MG tablet
7 mg PO QPM
lisinopril 5 MG tablet
2.5 mg PO DAILY
atorvastatin [Lipitor] 80 mg Tablet
80 mg PO QPM
acetaminophen [Tylenol Extra Strength] 500 mg Tablet
1,000 mg PO HS
Discharge Orders:
Discharge Patient (As Directed); Ordered 07/30/23
Ordered By: Juan Luis Nunez
Discharge Date and Time
Discharge Date/Time: 07/30/23 14:25
--- NOTE | 2023-07-30 13:35 | CM ---
Home no needs.
Plan; Home no needs.
--- NOTE | 2023-07-30 14:55 | W.PN.CARDCBS ---
Addendum entered and electronically signed by Bertin Reynolds MD 07/30/23 15:30:
I saw and examined the patient.
The Party Plan Selling Distributor's note was reviewed and I agree with the note.
Comment:
GEN: No distress, awake, Ox3
HEENT: supple, anicteric, mmm
LUNGS: CTA, no wheezes/rales
CV: Irreg, S1/S2, 1/6 syst LSB, no gallop
ABD: soft, BS+, NT/ND
EXT: No edema
NEURO: Gross non-focal
SKIN: No rash
Plan:
Has diuresed 14 pounds. Will discharge on Lasix 40 mg p.o. daily. Continue Coreg and lisinopril.
Continue amiodarone load 200 mg p.o. twice daily x 4 weeks then 200 mg daily.
If A-fib burden is not significantly improve would consider ablation. Continue Coumadin
Original Note:
Today's Communication / Plan
-
Continue coreg at lower dose 3.125mg BID and low dose lisinopril
D/c home on Lasix 40 mg daily (higher dose than was taking on admission)
BMP and INR in 1 week
Continue Amiodarone 200 mg BID x 4 weeks then reduce to 200 mg daily after
Impression / Plan
-
PCP: Dr. Kanwal Schmitz
Cardiology: Dr. Aponte
Impression:
Presented with palpitations and dyspnea on exertion
Paroxysmal atrial fibrillation, burden 47% by recent monitor
Chronic Coumadin anticoagulation
CAD
NSTEMI 05/2018 with Stenting of OM2 with 3.0 x 38 mm Promus stent post dilated with 3.0 mm NC balloon
s/p CABG 06/07/2018, GIL to LAD and saphenous vein graft to PDA
Ischemic cardiomyopathy
Chronic HFrEF
Mitral valve repair w/ [place]-Fawad izbaella-chords to A2 and 26mm annuloplasty ring 06/07/2018
Re-exploration with evacuation of pericardial fluid and modified Robicsek weave reclosure 06/16/18
s/p redo #29 [employer] mitral valve replacement 10/17/18
GERD/dysphagia, s/p esophageal dilatation 08/2018 at [facility]
Rate dependent LBBB
Hypertension
Hyperlipidemia
Anxiety/depression
h/o moderate alcohol use/abuse
Lexiscan stress test 03/06/2023: Perfusion imaging reveals a small-medium area of mildly decreased perfusion that is fixed in the basal inferolateral segment, basal inferior segment, mid inferolateral segment, mid inferior segment, and apical inferior
segment consistent with infarction. EF 49%.
Echo 04/07/2023: EF 42%, mild concentric LVH, mild global hypokinesis, s/p # 29 mechanical [place] mitral valve with peak/mean gradients 8/4 mmHg, no MR, aortic sclerosis with trace AR, trace TR, estimated PAP 21 mmHg
Echo 07/28/2023: EF 25-30%, global hypokinesis with more hypokinesis of the anteroseptal wall and apex, biatrial enlargement, s/p #[address] [place] [employer] mechanical mitral valve prosthesis with peak/mean gradients 10/5 mmHg, trace MR
Plan:
Acute on chronic heart failure with reduced ejection fraction
-Weight down 7 lbs since admission, symptomatically improving/feeling better
-EF 25-30% on echo this admission.
-Continue coreg at lower dose 3.125mg BID and low dose lisinopril
-D/c home on Lasix 40 mg daily (higher dose than was taking on admission)
-Hypotension prevents initiation of Aldactone at this time
-Consider SGLT2 inhibitor as outpt
Paroxysmal Afib.
-Cornelia has improved with Amiodarone load. Continue Amiodarone 200 mg BID x 4 weeks then reduce to 200 mg daily after
-INR 3.06. Continue Coumadin for anticoagulation given Afib and mechanical mitral valve. Goal INR 2.5-3.5, ideally closer to 2.5 given prior hemorrhage
History of CAD
-Troponin negative x 5 this admission
-Continue aspirin, lipitor, and zetia.
HPI: Ralf is a 73 year old male with PMH of CAD, ischemic CM, chronic HFrEF, paroxysmal atrial fibrillation, mitral valve replacement, GERD, LBBB, hypertension, hyperlipidemia, and anxiety who presents to ER for evaluation of ongoing dyspnea
on exertion and palpitations. He had COVID in May 2023 and then was treated for pneumonia as well. He has been having ongoing dizziness and palpitations. He has been concerned that he has been having recurrences of atrial fibrillation. He
was recently seen in the cardiology office on 07/15/2023 and was placed on lower dose Coreg 3.125 mg twice daily. He also was arranged for a 7-day CAM monitor. He continued to feel poorly and came into ER today for further workup and evaluation.
In ER, workup thus far has been unremarkable with EKG revealing sinus rhythm. His blood pressure and heart rate are stable. Lab work also unremarkable with normal blood count and negative troponin x 1. Cardiology consulted for evaluation given
ongoing symptoms.
Progress Note - Knife Changer
Subjective
Date of Service: July 30, 2023
Objective
Labs:
07/30/23 06:50
07/30/23 06:50
Labs
Hgb 12.1 g/dL (13.0-18.0) L 07/30/23 06:50
Hct 37.3 % (39.0-52.0) L 07/30/23 06:50
Plt Count 228 10^3/uL (130-400) 07/30/23 06:50
PT 32.1 Sec (11.4-14.6) H 07/29/23 06:50
INR 3.06 07/29/23 06:50
Sodium 134 mmol/L (135-145) L 07/30/23 06:50
Potassium 4.3 mmol/L (3.5-5.1) 07/30/23 06:50
BUN 17 mg/dl (9-20) 07/30/23 06:50
Creatinine 1.0 mg/dL (0.7-1.3) 07/30/23 06:50
Glucose 102 mg/dl (70-99) H 07/30/23 06:50
Troponins
07/28/23 07/28/23 07/28/23
11:08 17:22 18:52
Troponin I 0.013 0.016 0.016
07/29/23 07/29/23
00:40 06:50
Troponin I 0.014 < 0.012
Vital Signs and I&O:
Vital Signs
Temp Pulse Resp BP Pulse Ox
97.9 F 78 18 121/69 95
07/30/23 11:11 07/30/23 11:11 07/30/23 11:11 07/30/23 11:11 07/30/23 11:11
Vital Signs
Temp Pulse Resp BP Pulse Ox
97.9 F 78 18 121/69 95
07/30/23 11:11 07/30/23 11:11 07/30/23 11:11 07/30/23 11:11 07/30/23 11:11
Intake & Output
07/28/23 07/29/23 07/30/23 07/31/23
06:59 06:59 06:59 06:59
Intake Total 240 / 240 1730 / 1730
Output Total 125 / 125 1400 / 1400
Balance 115 / 115 330 / 330
--- NOTE | 2023-08-06 12:59 | W.HF.CON ---
Heart Failure
- LV Function
Left ventricular function study result: LV Ejection fraction </= 35%
Ejection Fraction Percentage: 25-30
- ARNI
Patient already on ARNI: No
Heart Failure ARNI Contraindication: Hypotension
- ACEI/ARB
Patient already on ACEI/ARB: Yes
- Beta Jeison
Patient already on Evidence Based Beta Jeison: Yes
- Mineralocorticord Receptor Antagonist
Patient already on MRA: No
Heart Failure MRA Contraindication: Hypotension
- SGLT-2 Inhibitor
Patient already on SGLT-2 Inhibitor: No
Heart Failure SGLT-2 Inhibitor Contraindication: Patient Refusal
- Afib Anticoagulation
Patient already on Anticoagulation for Afib: Yes
- NYHA CHF Classification
NYHA CHF Classification Level: Class III - Symptoms w/ min exertion, interferes w/ nml daily activity
- ACC/AHA Stage
ACC/AHA Stage: Stage C: Symptomatic Heart Failure
== END 2023-07-30 14:25 | disposition home or self-care (01) | DRG 291 ==
LOC: 4 WEST ACU 17:45
PROVIDERS: Physician Assistant; ADMITTING PHYSICIAN Hospitalist; ATTENDING PHYSICIAN Family Medicine; CONSULT PHYSICIAN Nuclear Medicine Nuclear Cardiology; EMERGENCY PHYSICIAN Student in an Organized Health Care Education/Training Program; FAMILY PHYSICIAN Family Medicine
DX: I11.0 Hypertensive heart disease with heart failure (principal); I50.23 Acute on chronic systolic (congestive) heart failure; I25.5 Ischemic cardiomyopathy; E78.5 Hyperlipidemia, unspecified; Z79.82 Long term (current) use of aspirin; I48.0 Paroxysmal atrial fibrillation; F41.9 Anxiety disorder, unspecified; F32.A Depression, unspecified; I25.10 Atherosclerotic heart disease of native coronary artery without angina pectoris; Z95.1 Presence of aortocoronary bypass graft; I5A Non-ischemic myocardial injury (non-traumatic); Z79.01 Long term (current) use of anticoagulants; K21.9 Gastro-esophageal reflux disease without esophagitis
CPT/HCPCS: 71046; 80048; 80053; 83735; 83880; 84100; 84484; 85025; 85027; 85610; 93005; 93306; 99285

== ENCOUNTER → 2023-08-05 12:24 | Outpatient (REF) | payer MEDICARE, OTHER, SELFPAY ==
[2023-08-05 15:32] LABS: INR 4.54; PT 43.2 Sec (11.4-14.6)
== END ==
LOC: HWLAB 12:24
PROVIDERS: ATTENDING PHYSICIAN Nuclear Medicine Nuclear Cardiology; FAMILY PHYSICIAN Family Medicine
DX: I48.0 Paroxysmal atrial fibrillation (principal)
CPT/HCPCS: 36415; 85610

== ENCOUNTER 2023-09-23 05:47 | Day surgery (SDC) | payer MEDICARE, OTHER, SELFPAY ==
[2023-09-15 08:50] VITALS: BMI 26.5
[2023-09-23] VITALS (16 sets, daily range): BP systolic 106–137; BP diastolic 60–82; BMI 25.2
[2023-09-23 07:06] LABS: INR 3.37; PT 34.1 Sec (11.4-14.6)
[2023-09-23] MEDS: TYLENOL 650 MG PO (14:34)
[2023-09-23] MEDS: LASIX 40 MG IV (15:51)
--- NOTE | 2023-09-23 15:53 | PTCARENOTE ---
pt ready for discharge ,but unable to void. attempted 3 times.states he feels full but not in pain. notified edil montez reporting process consultant. ordered 40 iv lasix , pt takes at home and did not have today.
--- NOTE | 2023-09-23 16:03 | ITS.CL.ABL ---
Field Producer - Ablation
Ablation
Procedure Report:
ELECTROPHYSIOLOGIC STUDY AND POSSIBLE ABLATION
DATE: September 23, 2023
Primary Care Provider: Dr. Princess Abbott
Primary wire stitcher operator: Dr Devan Aponte
Manager Inspection: Reyes Zimmerman M.D.
INDICATION:
Symptomatic Atrial Fibrillation.
Paroxysmal
HISTORY: See H and P.
Symptomatic AF, poorly controlled with attempted medical therapy.
Heart failure with reduced ejection fraction, LBBB and high burden atrial fibrillation currently treated with amiodarone. He has [employer] mechanical valve and oral anticoagulation is with warfarin.
HAS-BLED: 1
Age
CHADSVASc: 5
CHF, NYHA Class 3, HFrEF
HTN
Age
Vascular Dz: CAD and PAD
PRESENTING RHYTHM: SR
ANTIARRHYTHMIC DRUG: Amiodarone
ANTICOAGULATION: Warfarin, uninterrupted, INR today 3.4
'TIME-OUT': called and confirmed.
SEDATION/ANESTHESIA: provided via the anesthesia department using general anesthesia.
INTRAVENOUS/ARTERIAL ACCESS:
Right femoral venous - 8Fr ( up-sized for Arctic Front Flex Sheath - 15 Fr)
Left femoral venous - 7 Fr, 9 Fr,
PROCEDURE:
Ultrasound Guidance performed by dc was utilized for femoral venous Vascular Access b/l.
A decapolar CS catheter was placed within the CS for mapping and pacing.
The intracardiac ultrasound catheter was positioned in the RA. No FLOR clot was seen and the LA/PV anatomy was defined. ICE was also used to identify the FO/IAS for targeting of transseptal puncture, assist in identification of the pulmonary vein
ostia, monitoring for PV ostial balloon occlusion using Doppler flow, and to monitor for mechanical injury.
Heparin bolus was administered prior to the transseptal puncture. Transeptal puncture was completed while monitoring intracardiac ultrasound, fluoroscopy and tip pressure. Left atrial catheter position was confirmed by pressure monitoring as well
as I.C.E and fluoroscopy. The sheath was advanced over the dilator and positioned in the left atrium. Heparin was infused to target ACT at 300 -400 seconds throughout the case.
The multi-pole ring mapping catheter was positioned through the sheath into the LA and then the PV ostia were mapped. The 3-D electroanatomical map was created using Navex. A 3-D reconstructed CT image was compared to the 3-D map to assist in
anatomic interpretation, mapping and ablation. Cryothermal energy was utilized for PV isolation to electrically isolate each PV ostia using the 28 mm Arctic Front balloon. All PVPs were eliminated at each vein demonstrating entrance block.
There are 4 independent pulmonary veins, left superior and left inferior as well as right superior and right inferior.
During cryoballoon ablation at the right superior pulmonary vein there was transient marked reduction in compound motor action potential as well as reduction in the strength of palpation of diaphragmatic contraction requiring immediate
discontinuation of energy delivery with active balloon deflation. This resolved after approximately 20 minutes. Ablation at the right inferior pulmonary vein proceeded without any interruption of compound motor action potential strength or
diaphragmatic contraction strength.
There after additional ablation was performed more proximally at the right superior pulmonary vein with no interruption in the strength of contraction of the diaphragm with the strength/amplitude of the compound motor action potential.
After ostial isolation additional ablation lesions (2 applications at the griffin between the right superior and right inferior pulmonary vein posteriorly) were required to result in wide area circumferential ablation around the pulmonary vein sets.
An esophageal temperature probe was positioned at the level of the mid LA to delineate the course of the esophagus as well as monitor for any significant temperature changes during ablation. The temperature probe was repositioned to best correlate
to the level of ablation delivery. Ty esophageal temperature is 29 �C and occurred during cryo-balloon application at the left inferior pulmonary vein.
Pacing from the multi-pole ring catheter (Achieve) in SR around the circumference of the ostia was performed at 10 ma and 2.0 msec output to assess for exit block. Full isolation (entrance and exit) was achieved. Prior to withdraw of catheters,
mapping with the multi-pole ring catheter was repeated at each PV ostia to assess for any 're connect', none was observed.
I.C.E. :
Pre-Ablation Post-Ablation
LVEF: 30 % 30 %
WMA: none none
Pericardial effusion: nonen one]
COMPLICATIONS:
None
SUMMARY:
- Mapping and ablation to isolate the PVs
- Additional AF ablation set after PVI.
- 3-D Electroanatomical Mapping
- Intracardiac Ultrasound
- Ultrasound Guidance for Vascular Access.
Post ablation, I discussed today's findings and results with the patient's .
RECOMMENDATIONS:
- Observe in monitored bed.
- Maintain uninterrupted oral anticoagulation.
- Continue amiodarone
- Continue cardiovascular care with Dr Aponte
- Given his declining left ventricular systolic function, left bundle branch block, clinical syndrome of heart failure with reduced ejection fraction if he does not gain improvement in left ventricular systolic function and heart failure symptoms he
should be considered for cardiac resynchronization either with pacemaker or ICD.�
Copy to:
Dr. Princess Abbott
Dr Devan Aponte
--- NOTE | 2023-09-23 16:38 | W.PN.UPDATE ---
Update Note
Progress Note Update
Pt seen post PVI. Bilat groin sites without ht/bleeding. OOB ambulating. Post EKG NSR w/1st deg AVB, LBBB as before, no acute changes. Procedure was done on uninterrupted warfarin, INR this morning was 3.37. He will continue tonight at usual time,
INR per protocol. Continue amiodarone, other meds as before. Followup at [facility] arranged.
Difficulty urinating post procedure. He had not taken lasix today, and was given 40mg IV lasix with good success and no difficulty or dysuria.
Home today as groin sites/tele remain stable.
[2023-09-24 08:01] LABS: ACT-LR - POC > 397 Seconds (116-155)
[2023-09-24 08:01] LABS: ACT-LR - POC > 397 Seconds (116-155)
[2023-09-24 08:01] LABS: ACT-LR - POC > 397 Seconds (116-155)
[2023-09-24 08:01] LABS: ACT-LR - POC > 397 Seconds (116-155)
== END 2023-09-23 16:50 | disposition home or self-care (01) ==
LOC: CATH 05:47
PROVIDERS: ATTENDING PHYSICIAN Internal Medicine Cardiovascular Disease; FAMILY PHYSICIAN Family Medicine
DX: I48.0 Paroxysmal atrial fibrillation (principal); E78.5 Hyperlipidemia, unspecified; I25.10 Atherosclerotic heart disease of native coronary artery without angina pectoris; I25.2 Old myocardial infarction; I11.0 Hypertensive heart disease with heart failure; I50.32 Chronic diastolic (congestive) heart failure; I44.7 Left bundle-branch block, unspecified; I25.5 Ischemic cardiomyopathy; J44.9 Chronic obstructive pulmonary disease, unspecified; K21.9 Gastro-esophageal reflux disease without esophagitis; K44.9 Diaphragmatic hernia without obstruction or gangrene; R13.10 Dysphagia, unspecified; K22.2 Esophageal obstruction; K80.20 Calculus of gallbladder without cholecystitis without obstruction; K59.09 Other constipation; M19.90 Unspecified osteoarthritis, unspecified site; D50.9 Iron deficiency anemia, unspecified; F32.A Depression, unspecified; F41.9 Anxiety disorder, unspecified; N52.9 Male erectile dysfunction, unspecified; Z86.16 Personal history of COVID-19; F10.11 Alcohol abuse, in remission; Z79.82 Long term (current) use of aspirin; Z79.01 Long term (current) use of anticoagulants
CPT/HCPCS: C1766; C1893 ×2; C1894; C1730; C1733; C1892; 76937; 85347; 85610; 86850; 86900; 86901; 93005; 93656; 93657; Q9967

== ENCOUNTER → 2024-01-13 09:59 | Outpatient (REF) | payer MEDICARE, OTHER, SELFPAY ==
[2024-01-13 11:28] LABS: PT 27.8 Sec (11.4-14.6)
[2024-01-13 11:56] LABS: ALT (SGPT) 30 U/L (0-50); AST (SGOT) 38 U/L (17-59); Albumin 3.7 g/dl (3.5-5.0); Alkaline Phosphatase 101 U/L (38-126); Blood Urea Nitrogen 15 mg/dl (9-20); Calcium 9.4 mg/dl (8.4-10.2); Carbon Dioxide 29 mmol/L (22-30); Chloride 102 mmol/L (98-107); Glucose 96 mg/dl (70-99); HDL Cholesterol 39 mg/dl; LDL Cholesterol, Calculated 66 mg/dl; Sodium 136 mmol/L (135-145); Total Bilirubin 0.8 mg/dl (0.2-1.3); Total Cholesterol 125 mg/dl (50-199); Total Protein 6.3 g/dl (6.3-8.2); Triglyceride 102 mg/dl (10-149); Very Low Density Lipoprotein 20 mg/dl (0-30); eGFR > 60.00
== END ==
LOC: RCS 09:59
PROVIDERS: ATTENDING PHYSICIAN Nuclear Medicine Nuclear Cardiology; FAMILY PHYSICIAN Family Medicine
DX: I48.0 Paroxysmal atrial fibrillation (principal); I25.5 Ischemic cardiomyopathy; I10 Essential (primary) hypertension; Z95.1 Presence of aortocoronary bypass graft; E78.2 Mixed hyperlipidemia; I11.0 Hypertensive heart disease with heart failure; Z79.01 Long term (current) use of anticoagulants
CPT/HCPCS: 36415; 80053; 80061; 85610; 93306

== ENCOUNTER → 2024-12-06 11:09 | Outpatient (REF) | payer MEDICARE, OTHER, SELFPAY | LOC: RCS 11:09 | PROVIDERS: ATTENDING PHYSICIAN Nuclear Medicine Nuclear Cardiology; FAMILY PHYSICIAN Family Medicine | DX: I48.0 Paroxysmal atrial fibrillation (principal); I10 Essential (primary) hypertension; Z95.1 Presence of aortocoronary bypass graft; I25.5 Ischemic cardiomyopathy; I44.7 Left bundle-branch block, unspecified; R06.02 Shortness of breath | CPT/HCPCS: 78452; 93017; A9500; J2785 ==

== ENCOUNTER → 2025-01-03 06:55 | Outpatient (REF) | payer MEDICARE, OTHER, SELFPAY ==
[2025-01-03 07:32] LABS: INR 2.49; PT 26.9 Sec (11.4-14.6)
[2025-01-03 08:22] LABS: PSA, Total - Diagnostic 6.74 ng/ml (0.0-4.0)
== END ==
LOC: REG 06:55
PROVIDERS: ATTENDING PHYSICIAN Nuclear Medicine Nuclear Cardiology; OTHER PHYSICIAN Specialist
DX: I48.0 Paroxysmal atrial fibrillation (principal); Z79.01 Long term (current) use of anticoagulants; R97.20 Elevated prostate specific antigen [PSA]
CPT/HCPCS: 36415; 84153; 85610

== ENCOUNTER → 2025-03-16 12:50 | Outpatient (REF) | payer MEDICARE, OTHER, SELFPAY | LOC: MRI 3T 12:50 | PROVIDERS: ATTENDING PHYSICIAN Specialist; FAMILY PHYSICIAN Family Medicine | DX: R97.20 Elevated prostate specific antigen [PSA] (principal) | CPT/HCPCS: 72197; A9575 ==

== ENCOUNTER 2025-03-28 16:53 | Inpatient (IN) | payer MEDICARE, OTHER, SELFPAY ==
[2025-03-27] VITALS (7 sets, daily range): BP systolic 101–118; BP diastolic 69–88; BMI 24.9
--- NOTE | 2025-03-27 19:04 | EDRN ---
Pt says he has been out of afib for 1.5 years, had an ablation for afib. Pt noted this morning, around [id number], he was feeling worse than usual, palpitations in his chest and soreness in his chest which is usually from scar tissue. Pt tries to
push himself to do things but says he was unable to do that today. Pt sat around a lot today, checked his pulse and it was the 140's. Pt checked his old records and says he did not have an elevated HR so he called his doctor who advised pt come to
the ED for evaluation. Pt adds he drank 4 glasses of water thinking he might be dehydrated. No sob, n/v, headache. Pt gets lightheaded standing up. Pt's adds pt felt clammy not too long ago.
--- NOTE | 2025-03-27 19:24 | ED.GENMED ---
History of Present Illness
<MAGNOLIA Salazar - Last Filed: 03/27/25 23:14>
General
Chief Complaint: Chest Pain
Source: patient
Exam Limitations: none
Time Seen by Provider: 03/27/25 18:37
Nursing documentation reviewed up to this point in time: agreed with
History of Present Illness
History of Present Illness:
Patient is a 75-year-old male with past medical history of CABG, valve replacement on Coumadin, A-fib 1 to 1-1/2 years ago status post ablation presents to the ER for evaluation. Today patient felt soreness in his chest and palpitations. He could
feel his heart racing and his blood pressure monitor recorded his heart rate around 140. He denies any recent illness fever or chills. He denies any shortness of breath presently. He is followed by DR Aponte here.
Past History
<MAGNOLIA Salazar - Last Filed: 03/27/25 23:14>
Past History
ED Past Medical History: Arrthythmia (Atrial fibrillation), CAD, CHF, Psychiatric (Anxiety/depression) and Other (Pneumonia, left bundle branch block, anemia, mitral valve replacement)
Social History
Tobacco: Non-smoker
Alcohol: None
Drug: None
Personal:
Living: with family
Phy Exam
<MAGNOLIA Salazar - Last Filed: 03/27/25 23:14>
General Physical Exam
General Presentation: no apparent distress
General age: appears stated age
General Skin: warm and dry
General Habitus: normal
General Mental: alert
General Hydration: appears well hydrated
Cardiovascular Exam
Cardiovascular Exam: tachycardia
Pulmonary Exam
Pulmonary Exam: lungs clear and no respiratory distress
Neurological Exam
Neurological Exam: alert and oriented x3
Musculoskeletal Exam
Musculoskeletal Exam: full ROM
Skin Exam
Skin Exam: normal color and warm/dry
Psychiatric Exam
Psychiatric Exam: normal mood/affect
Scores
<MAGNOLIA Salazar - Last Filed: 03/27/25 23:14>
Heart Score for Chest Pain Patients
STEMI patient?: Not applicable
Course
<MAGNOLIA Salazar - Last Filed: 03/27/25 23:14>
Orders/Labs/Results
Orders:
Orders
03/27/25 18:24
EKG [Electrocardiogram (*1)] Urgent
Reason for Study: Chest Pain
EKG- Treatment ONCE
03/27/25 18:55
Complete Blood Count/With Diff Urgent
Comprehensive Metabolic Panel Urgent
TSH Reflex To Free T4 Urgent
Comment: ADD ON
Troponin I Urgent
03/27/25 19:16
Cardiac Monitoring- Treatment ONCE
IV Insert/Care/Rem.- Treatment PRN
03/27/25 19:24
0.9% Sodium Chloride 250 ml [Nss] 250 ml IV BOLUS
Metoprolol [Lopressor] 5 mg IV NOW STA
03/27/25 19:31
Add On- LAB Urgent
Tests Added?: tsh reflex to free t4
03/27/25 19:34
0.9% Sodium Chloride 1000 ml [Nss] 1,000 ml IV BOLUS
03/27/25 19:36
PT/INR [Prothrombin Time] Urgent
03/27/25 19:38
0.9% Sodium Chloride 250 ml [Nss] 250 ml IV BOLUS
03/27/25 19:50
Electrocardiogram (*1) Urgent
Reason for Study: Atrial Fibrillation
EKG- Treatment ONCE
03/27/25 21:56
Electrocardiogram (*1) Urgent
Reason for Study: Chest Pain
EKG- Treatment ONCE
03/27/25 22:05
Troponin I Urgent
03/27/25 23:16
Chest [CR Chest - 2 Views ] Urgent
Comment:
Reason For Exam: cp
03/27/25 23:20
Admit/Transfer Patient As Directed
Co-Sign Provider:
Level of Care: Observation services
Assign to:: Telemetry
Physician / Group: Eduardo
Diagnosis: Rapid AFIB
Reason for Telemetry: Chest Pain syndromes
Date to Stop Telemetry: 03/29/25
Time to Stop Telemetry: 11:00
03/27/25 23:21
PRN Pain Medication Management As Directed
May give lesser potent ordered pain med per pt: Yes
preference::
Protocol:: Medication orders for pain may be administered in a
manner that supports deferring to patient preference
when the pt is:
- Requesting an ordered lesser potent pain medication.
Least to most potent pain medications are defined
as: acetaminophen < NSAID < tramadol < opioids
(morphine, oxycodone, hydromorphone).
- Requesting a lesser dose of the same medication IF
ORDERED.
- Requesting a less intrusive route of administration
if both routes are prescribed by the provider (PO <
IV).
03/27/25 23:22
Code Status As Directed
Resuscitation Status: Full Code
03/29/25 11:00
DC Protocol for Telemetry ONCE
Abnormal Lab Results
03/27/25 03/27/25 03/27/25
18:55 19:36 22:05
Absolute Monos (auto) 0.8 H 10^3/uL
(0.1-0.6)
Lymphocytes % 20.2 L %
(20.5-51.1)
Monocytes % 10.6 H %
(1.7-9.3)
PT 31.3 H Sec
(11.4-14.6)
Troponin I 0.073 H* ng/ml 0.120 H* D ng/ml
03/27/25 18:55
03/27/25 18:55
Vital Signs
Initial and Last Documented VS:
Initial Vital Signs
Temp Pulse Resp BP Pulse Ox
98.4 F 144 20 111/73 98
03/27/25 18:31 03/27/25 18:31 03/27/25 18:31 03/27/25 18:31 03/27/25 18:31
Last Documented Vital Signs
Temp Pulse Resp BP Pulse Ox
98.4 F 91 18 101/69 96
03/27/25 18:31 03/27/25 23:00 03/27/25 23:00 03/27/25 23:00 03/27/25 23:00
Nurseryperson consulted with Physician
Nurseryperson consulted with physician?: Yes
Name of Physician Consulted: EZRA
<Manas Chakraborty MD - Last Filed: 03/28/25 00:23>
Orders/Labs/Results
Orders:
Orders
03/27/25 18:24
EKG [Electrocardiogram (*1)] Urgent
Reason for Study: Chest Pain
EKG- Treatment ONCE
03/27/25 18:55
Complete Blood Count/With Diff Urgent
Comprehensive Metabolic Panel Urgent
TSH Reflex To Free T4 Urgent
Comment: ADD ON
Troponin I Urgent
03/27/25 19:16
Cardiac Monitoring- Treatment ONCE
IV Insert/Care/Rem.- Treatment PRN
03/27/25 19:24
0.9% Sodium Chloride 250 ml [Nss] 250 ml IV BOLUS
Metoprolol [Lopressor] 5 mg IV NOW STA
03/27/25 19:31
Add On- LAB Urgent
Tests Added?: tsh reflex to free t4
03/27/25 19:34
0.9% Sodium Chloride 1000 ml [Nss] 1,000 ml IV BOLUS
03/27/25 19:36
PT/INR [Prothrombin Time] Urgent
03/27/25 19:38
0.9% Sodium Chloride 250 ml [Nss] 250 ml IV BOLUS
03/27/25 19:50
Electrocardiogram (*1) Urgent
Reason for Study: Atrial Fibrillation
EKG- Treatment ONCE
03/27/25 21:56
Electrocardiogram (*1) Urgent
Reason for Study: Chest Pain
EKG- Treatment ONCE
03/27/25 22:05
Troponin I Urgent
03/27/25 23:16
Chest [CR Chest - 2 Views ] Urgent
Comment:
Reason For Exam: cp
03/27/25 23:20
Admit/Transfer Patient As Directed
Co-Sign Provider:
Level of Care: Observation services
Assign to:: Telemetry
Physician / Group: Eduardo
Diagnosis: Rapid AFIB
Reason for Telemetry: Chest Pain syndromes
Date to Stop Telemetry: 03/29/25
Time to Stop Telemetry: 11:00
03/27/25 23:21
PRN Pain Medication Management As Directed
May give lesser potent ordered pain med per pt: Yes
preference::
Protocol:: Medication orders for pain may be administered in a
manner that supports deferring to patient preference
when the pt is:
- Requesting an ordered lesser potent pain medication.
Least to most potent pain medications are defined
as: acetaminophen < NSAID < tramadol < opioids
(morphine, oxycodone, hydromorphone).
- Requesting a lesser dose of the same medication IF
ORDERED.
- Requesting a less intrusive route of administration
if both routes are prescribed by the provider (PO <
IV).
03/27/25 23:22
Code Status As Directed
Resuscitation Status: Full Code
03/29/25 11:00
DC Protocol for Telemetry ONCE
Abnormal Lab Results
03/27/25 03/27/25 03/27/25
18:55 19:36 22:05
Absolute Monos (auto) 0.8 H 10^3/uL
(0.1-0.6)
Lymphocytes % 20.2 L %
(20.5-51.1)
Monocytes % 10.6 H %
(1.7-9.3)
PT 31.3 H Sec
(11.4-14.6)
Troponin I 0.073 H* ng/ml 0.120 H* D ng/ml
03/27/25 18:55
03/27/25 18:55
Vital Signs
Initial and Last Documented VS:
Initial Vital Signs
Temp Pulse Resp BP Pulse Ox
98.4 F 144 20 111/73 98
03/27/25 18:31 03/27/25 18:31 03/27/25 18:31 03/27/25 18:31 03/27/25 18:31
Last Documented Vital Signs
Temp Pulse Resp BP Pulse Ox
98.4 F 91 18 101/69 96
03/27/25 18:31 03/27/25 23:00 03/27/25 23:00 03/27/25 23:00 03/27/25 23:00
<MAGNOLIA Salazar - Last Filed: 03/27/25 23:14>
MDM/Problems Addressed
Differential Diagnosis Includes:
Not limited to palpitations, arrhythmia, A-fib/flutter, ACS
MDM/Problems Addressed:
As documented patient is a 75-year-old male with past medical history of A-fib previous ablation valve replacement CABG on Coumadin presents to the ER with palpitations some chest discomfort today. Patient reports his heart rate was around 140 at
home. He presented tachycardic with a heart rate of 140s here. He does have a left bundle branch block on EKG which is unchanged.
Patient's rate was very rapid and regular concerning for possible a flutter. Case discussed with Dr. Chakraborty. Patient's blood pressure was on the lower side and so he was given a small 250 bolus with 5 mg Lopressor.
HR did decrease to 80 .
Pt was monitored here looking well trop however elevated at 0.073.
will repeat.
no cp now
2300: repeat trop is increased 0.120 EKG Afib HR 91. no cp. As discussed in edition Will admit for continued evaluation
Chronic conditions affecting care:
A-fib on Coumadin bypass CHF
<MAGNOLIA Salazar - Last Filed: 03/27/25 23:14>
*Pulse Oximetry
SaO2: 95
Oxygen Mode of Delivery: Room air
Patient hypoxic: no
*EKG
Interpreted by ED Provider?: Yes
Interpretation: abnormal
Heart Rate: 137
Rate: tachycardiac
Rhythm: atrial flutter
Ischemia: other (repeat ekg afib )
*Critical Care Note
Total Time (30-74mins, 75-104mins- exclusive of procedures): Not Applicable
Data Reviewed
Review of Other/Old Records Reveals: Labs, Operative Reports and Discharge Summary
Source: patient and spouse
ED Attending Note
<MAGNOLIA Salazar - Last Filed: 03/27/25 23:14>
-
Portions of this chart may have been created with voice recognition software.� Occasional wrong word or��sound alike� substitutions may have occurred due to the inherent limitations of voice recognition software.
<Manas Chakraborty MD - Last Filed: 03/28/25 00:23>
ED Attending Note
Patient seen and examined by attending physician: Yes
ED Attending Note:
Patient with history of paroxysmal atrial fibrillation on Coumadin, status post ablation 1 year ago, as well as coronary artery disease, presents to ED secondary to persistent chest palpitation noted at home, along with detected heart rate greater
than 140 bpm. In addition, patient who experiences constant soreness of chest after bypass surgery, reports increased chest soreness. Denies shortness of breath. Denies nausea or vomiting. Denies dizziness. Denies recent illness. Denies recent
change in medications or diet.
Physical Exam
General: mild distress, not acutely ill. afebrile
Head: nc/at. eomi
Neck: supple. no meningeal signs.
Heart: irregularly irregular, tachycardic
Lungs: no acute respiratory distress. clear bilaterally
Abdomen: normal bowel sounds. not tender.
Neuro: alert and oriented x 3. no focal neurological deficits
Skin: no rash
Psychiatric: well kept. interactive and cooperative
Extremities: no edema. no calf tenderness.
History and exam, along with EKG consistent with recurrent rapid atrial fibrillation. Patient given Lopressor IV with improved heart rate, along with resolution of patient's presenting symptoms. However, patient's initial troponin when repeated,
with noted elevation. In light of patient's history of CAD, patient will be admitted for further evaluation and treatment. INR noted, therapeutic.
Discharge Plan
Departure
Patient Disposition: Admit
Date of Disposition: 03/27/25
Time of Disposition: 23:12
Admit to: Telemetry
Admit to doctor: hospitalist
Presentation/result/management discussed w/ accepting MD/DO: Hospitalist
Patient with high blood pressure during this ER visit?: No
Condition: Fair
Covid-19: Not Applicable
Discharge Problem:
Atrial fibrillation, rapid, Chest pain, Elevated troponin
Interventions
Interventions:
*Risk Screen - Suicide Last Done: 03/27/25 18:31
*General Assessment Last Done: 03/27/25 18:56
*Neglect/Abuse Screening Last Done: 03/27/25 18:56
*ED- Fall Risk Assessment Last Done: 03/27/25 18:56
ED- Cardiac Assessment Last Done: 03/27/25 19:15
[2025-03-27 19:34] LABS: Hematocrit 41.8 % (39.0-52.0); Hemoglobin 14.1 g/dL (13.0-18.0); Mean Corp Hgb Conc. 33.7 g/dL (33.0-37.0); Mean Corpuscular Volume 82.9 fL (80.0-94.0); Nucleated Red Blood Cells % 0 % (-); Platelet Count 286 10^3/uL (130-400); Red Cell Dist. Width 13.7 % (11.5-14.5)
[2025-03-27] MEDS: NSS 1000 IV (19:39)
[2025-03-27] MEDS: LOPRESSOR 5 MG IV (19:41)
[2025-03-27 19:48] LABS: ALT (SGPT) 29 U/L (0-50); AST (SGOT) 34 U/L (17-59); Albumin 3.7 g/dl (3.5-5.0); Alkaline Phosphatase 89 U/L (38-126); Blood Urea Nitrogen 20 mg/dl (9-20); Calcium 8.9 mg/dl (8.4-10.2); Carbon Dioxide 27 mmol/L (22-30); Chloride 104 mmol/L (98-107); Estimated Creatinine Clearance 67 ml/min; Glucose 97 mg/dl (70-99); Potassium 4.1 mmol/L (3.5-5.1); Sodium 135 mmol/L (135-145); Total Protein 6.3 g/dl (6.3-8.2); eGFR > 60.00
[2025-03-27 19:55] LABS: INR 3.03; PT 31.3 Sec (11.4-14.6)
[2025-03-27 20:03] LABS: Troponin I 0.073 ng/ml
[2025-03-27 22:42] LABS: Troponin I 0.120 ng/ml
--- NOTE | 2025-03-27 23:12 | HPS.HSE ---
Family Physician
-
Family Physician: NOT KNOW UNKNOWN - PT DOES
Chief Complaint
-
chest discomfort
History of Present Illness
75-year-old male with past medical history significant for CAD status post CABG ischemic cardiomyopathy, congestive heart failure with reduced EF of around 45%, proximal atrial fibrillation, mitral valve insufficiency status post mechanical mitral
valve replacement hypertension and hyperlipidemia who presents to the emergency department with chest discomfort.
Reports that he could feel his heart racing and noted that he has a blood pressure monitor recorded his heart rate of around 140. Showed evidence stating that he started having this palpitations with elevated heart rate this morning and it lasted
daily arrived in the emergency room after 5 PM. Throughout this he did feel some chest pressure in addition to the palpitations. He denied feeling dizzy. He denies having lightheadedness. He reported that he had an episode of abdominal ache 2
days ago with associated 3 rounds of watery diarrhea which has since resolved and he has been able to tolerate p.o. and take his usual medications since then. He denies any shortness of breath. He denies having any cough or fevers or chills. He
denies any lower extremity swelling. Denies recent lightheadedness or dizziness. He denies any recent changes in medications.
On arrival in the emergency department he was found to be tachycardic to the 140s. Rate control achieved with 5 mg of metoprolol tartrate IV.
Other vital signs shows a temperature of 98.7, blood pressure of 111/87 and oxygen saturation of 97% on room air.
ECG at the time I saw him and showed atrial fibrillation at a rate of 91 with known left bundle branch block. His initial troponin was 0.073, repeat was 0.12. Is electrolytes BUN and creatinine were all in a normal range. CBC was unremarkable.
TSH was normal. INR was 3.0.
Medical History
Past Medical History
Past Medical History: Reports Other (CAD status post CABG, ischemic cardiomyopathy, HFrEF, paroxysmal atrial fibrillation on Coumadin, mechanical mitral valve replacement,, left bundle branch block, hypertension, GERD, hyperlipidemia, anxiety,
alcohol use disorder,)
Past Surgical History: Reports Other (Cardiac (PCI of OM 2, CABGx2 05/2018, mitral valve repair 2018, mitral valve replacement 2018) and Other (Esophageal dilation, elbow surgery 05/2023))
Social History
Tobacco: Non-smoker
Alcohol: Occasional
Drug: None
Family History
Family History: Not pertinent
Allergies / Home Medications
Allergies reflects when Allergies were last updated in [email or web address].
Home Medications with original date entered in [email or web address]
Allergy/Medication List:
Allergies
Allergy/AdvReac Type Severity Reaction Status Date / Time
No Known Allergies Allergy Verified 07/28/23 10:13
Home Medications
trazodone 100 mg tablet 100 mg PO HS 05/15/18
aspirin 81 mg tablet,delayed release 81 mg PO DAILY 06/24/18
carvedilol 3.125 mg tablet 3.125 mg PO BID 10/22/19
lisinopril 5 mg tablet 2.5 mg PO DAILY 10/22/19
warfarin 4 mg tablet (Jantoven) 7 mg PO QPM 10/22/19
acetaminophen 500 mg tablet (Tylenol Extra Strength) 1,000 mg PO HS 07/28/23
atorvastatin 80 mg tablet (Lipitor) 80 mg PO QPM 07/28/23
Review of Systems
-
Constitutional: Reports No Symptoms
EENT: Reports No Symptoms
Respiratory: Reports No Symptoms
Cardiac: Reports Chest Pain and Palpitations
Abdomen/GI: Reports No Symptoms
: Reports No Symptoms
Musculoskeletal: Reports No Symptoms
Skin: Reports No Symptoms
Neurological: Reports No Symptoms
Endocrine: Reports No Symptoms
Hematologic/Lymphatic: Reports No Symptoms
Psych: Reports No Symptoms
Physical Exam
Vital Signs
Vital Signs
Temp Pulse Resp BP Pulse Ox
98.4 F 91 16 111/87 94
03/27/25 18:31 03/27/25 22:00 03/27/25 22:00 03/27/25 22:00 03/27/25 22:00
Physical Exam
General: Well Developed and Well Nourished
HEENT: NormoCephalic, Moist mucous membranes and Atraumatic
Respiratory: Clear
Cardiac: S1/S2 and Irregular Rhythm; No Murmur or Rub
GI: Soft, Non Tender, Non Distended and Normal Bowel Sounds; No Organomegaly
Rectal: Deferred by Provider
Musculoskeletal: No Clubbing, No Cyanosis and No Edema
Skin: No Rash
Neuro: Nonfocal/grossly intact
Hematologic/Lymphatic: No Lymphadenopathy
Psych: Calm
Laboratory Results
-
03/27/25 18:55
03/27/25 18:55
Laboratory Results
PT 31.3 Sec (11.4-14.6) H 03/27/25 19:36
INR 3.03 03/27/25 19:36
Total Bilirubin 0.6 mg/dl (0.2-1.3) 03/27/25 18:55
AST 34 U/L (17-59) 03/27/25 18:55
ALT 29 U/L (0-50) 03/27/25 18:55
Alkaline Phosphatase 89 U/L (38-126) 03/27/25 18:55
Troponin I 0.120 ng/ml H* D 03/27/25 22:05
Impression/Plan
-
IMPRESSION:
75-year-old with past medical history of ischemic cardiomyopathy with a EF of around 45%, hypertension, paroxysmal atrial fibrillation, status post mechanical mitral valve replacement on anticoagulation with Coumadin who presents to the emergency
department with 1 day episode of palpitations associated with chest soreness. He was found to be in rapid atrial fibrillation to the 140s. He was found to have a troponin of 0.07 rising to 0.1 on admission. He is otherwise hemodynamically stable
afebrile and currently in no acute distress after rate control achieved but still in atrial fibrillation.
PLAN:
Elevated troponin -currently no chest pain, no ischemia on EKG. Suspect possibly rate related demand ischemia but cannot rule out acute coronary syndrome, recent perfusion stress imaging with intermediate risk with the fixed inferior anteroseptal
and apical defect consistent with soft tissue attenuation.
- Admit to telemetry observation
- Trend cardiac enzyme
- Currently patient's INR is therapeutic at 3.0, will continue Coumadin unless troponin is rising.
- Continue aspirin 81 mg daily and statin
- Echo in a.m.
- Cardiology consult
Repeat atrial fibrillation -known history of A-fib, patient on carvedilol
- Rate control achieved with IV metoprolol, given a dose of metoprolol 25 tonight, continue with as needed IV metoprolol,
- Consider change carvedilol to metoprolol succinate for improved rate control
- therapeutic INR, can cardiovert w/o Trans esophageal u/s if needed
- TSH within normal limits
- Echo as above
- Potassium within normal limits, check mag in a.m.
CHF -euvolemic
- Continue Lasix 40 daily
DVT prophylaxis�therapeutic on warfarin
CODE STATUS�full code
[2025-03-28] VITALS (7 sets, daily range): BP systolic 103–136; BP diastolic 65–83; BMI 24.3
[2025-03-28] MEDS: LOPRESSOR 25 MG PO (00:23)
[2025-03-28 03:05] LABS: Troponin I 0.127 ng/ml
--- NOTE | 2025-03-28 08:11 | CON.CAR ---
Addendum entered and electronically signed by Gris Oakley DO 03/28/25 13:20:
I saw and examined the patient.
The Final Canoe Inspector's note was reviewed and I agree with the note.
Comment: Patient was seen and examined independently, outlined plan was discussed with cardiac PA. Mr. Hoover is a 75-year-old gentleman who follows with my colleague Dr. Aponte. He has a history of multivessel coronary artery disease status post
non-STEMI in 2018 with stent to OM 2 with a 3 x 38 mm Promus who ultimately was referred to CT surgery for severe symptomatic mitral regurgitation status post mitral valve repair with Sanborn-Fawad neocords to A2 x 3 and a 26 mm Saint Willian annuloplasty
ring along with CABG x 2, GIL to LAD and SVG to PDA with Dr. Shi on 06/07/2018. He required reexploration for sternal dehiscence 06/16/2018 and evacuation of pericardial and pleural effusions. Unfortunately he needed another redo sternotomy
with placement of a #29 Saint Willian mechanical mitral valve 10/17/2018 for severe mitral regurgitation and valve hemolysis. At the time of this surgery, there was also surgical ligation of his left atrial appendage. He has a history of heart failure
with reduced ejection fraction with fluctuating ejection fraction as low as 25-30% in 2023 estimated 43% by stress test in November 2024. He also has a history of persistent atrial fibrillation previously on amiodarone which was discontinued after PVI
August 2023. He has been anticoagulated with Coumadin being managed by [facility]. Additionally has a history of GERD/dysphagia and history of esophageal dilatation in 2018 at [facility] as well as iron deficient anemia. More
recently he has been seen by urology for enlarged prostate and increased PSA with plans for prostate biopsy on April 13.
.
Bill states on Friday he developed a couple days watery diarrhea and abdominal cramping. He reports diarrhea was nonbloody and he denies fevers chills or nausea vomiting. He and his ate the same food and she was fine. He has had no recent
travel. Fortunately, his abdominal symptoms have improved. However he then developed tachycardia/rapid heart rates 140s associated with hypotension with systolic blood pressures in the high 70s and low 80s along with chest tightness prompting ER
evaluation. He denies syncope. Initial EKG in the ED was atrial fibrillation with underlying known left bundle branch block with heart rates in the 80s and 90s. Initial blood pressure 111/73 mmHg. Pertinent lab work: BUN/creatinine 20/1.1,
sodium 135, potassium 4.1. TSH 1.64. Hemoglobin 14.1. LFTs within normal limits. INR initially 3.03 and today 2.89. Cardiac troponin initially 0.073 and peaked at 0.127. Chest x-ray showed no active cardiopulmonary abnormality. He did have a
recent Lexiscan nuclear stress test 12/06/2024 which was personally reviewed. There are relatively fixed defects in the anterior septum and apex which improves with prone imaging likely related to soft tissue attenuation. There is also a relatively
fixed inferior defect that improves on prone imaging with mild persistence and prone imaging in the basal inferior segment consistent with prior scar. No significant ischemia. Global hypokinesis with a EF 43%.Fortunately, he converted to sinus
rhythm.He is feeling better with no chest pain or pressure, denies shortness of breath or palpitations. No further abdominal pain or diarrhea.
GEN: No distress, awake, Ox3
HEENT: mmm
LUNGS: CTA, no wheezes/rales
CV: Reg, S1/S2, /6 SM +click
ABD: soft, BS+, NT/ND
EXT: No edema
NEURO: Gross non-focal
Plan:
Recurrent atrial fibrillation
-Presents following episode of A-fib with rapid ventricular response, spontaneously converted to sinus rhythm after IV Lopressor
-Suspect precipitated by dehydration in setting of 2-day history of Nonbloody diarrhea;GI symptoms have resolved
-Continue Coumadin with goal INR 2.5�3.5. INR therapeutic on warfarin, 2.89 03/28/2025 [Patient also has a history of left atrial appendage ligation at the time of redo sternotomy and placement of mechanical mitral valve in 2019]
-Continue Coreg 3.125 mg twice daily
-2D echocardiogram today.
-TSH within normal limits
-Discussed that if he has another episode of atrial fibrillation will resume amiodarone.
Ischemic and valvular cardiomyopathy with history of heart failure with reduced ejection fraction
-Does not appear volume overloaded on exam.
-Repeating echo today
-Continue home heart failure regimen including carvedilol, Lasix.
-Consider SGLT2 inhibitor as outpt
History of mechanical MVR
-Continue Coumadin for anticoagulation given Afib and mechanical mitral valve. Goal INR 2.5-3.5, ideally closer to 2.5 given prior hemorrhage
- Checking echo today
- Needs lifelong SBE prophylaxis
Multivessel coronary artery disease status post OM 2 stenting in 2018 in the setting of non-STEMI and CABG x 2 [GIL to LAD, SVG to PDA] 06/07/2018.
-Abnormal cardiac troponin which peaked at 0.127 and now downtrending in the setting of rapid atrial fibrillation and hypotension likely represents demand ischemia.
-Recent Lexiscan nuclear stress test in November 2024 personally reviewed with no definite evidence of ischemia.
-Repeat 2D echocardiogram to reassess for wall motion and LV systolic function. If relatively unchanged with no further symptoms we will plan for continued medical therapy
-Continue aspirin, lipitor, and zetia.
-Will add on lipid profile to a.m. labs. Last available lipid profile January 13, 2024, LDL 66.
- LDL goal should be less than 55
Elevated PSA/BPH for prostate biopsy with urology April 13, 2025
-Patient is at least moderate risk for low risk prostate biopsy. If echocardiogram not significantly changed and no further issues with chest pain or cardiac arrhythmia he can proceed as planned. Prior to this hospitalization he had been working
with her outpatient Coumadin clinic for Lovenox bridge in preparation for his surgical procedure.
Possible discharge home today with outpatient cardiac follow-up if echocardiogram is relatively stable and patient remains in sinus rhythm with no recurrent symptoms
Original Note:
Consultation
Consultation Request
Date/Time Consultation Requested: 03/28/2025, 0153
Date/Time Consultation Performed: 03/28/2025 0800
Requesting Provider: Dr Clark
Performing Provider: MAGNOLIA Noble for Dr. Oakley
Reason for Consultation: A-fib with RVR
Medical History
-
Chief Complaint: Palpitation
History of Present Illness:
HPI: Ralf is a 75 year old male with PMH of CAD, ischemic CM, chronic HFrEF, paroxysmal atrial fibrillation status post PVI 08/2023, mechanical mitral valve replacement on Coumadin, GERD, LBBB, hypertension, hyperlipidemia, and anxiety who
presents to [facility] ER for chest discomfort and palpitations with HR 140 bpm on home monitoring. Symptoms started 03/27/2025 around 10 AM. Complained of chest soreness with palpitations. Denies associated dizziness, lightheadedness, syncope,
shortness of breath, edema, PND, orthopnea.. He had abdominal achiness and watery diarrhea 2 days ago.
Initial EKG in the ED Concerning for A-fib versus atrial flutter with left bundle branch block, 137 bpm. Patient received Lopressor IV 5 mg x 1 and repeat EKG atrial flutter with left bundle branch block 80 bpm. Patient has subsequently converted
to sinus rhythm. This was his first known episode of atrial fibrillation since his ablation in August 2023.
ED workup:
Troponin 0.073�0 0.120�0.127�0.108
BUN/creatinine 20/1.1, NA 135, K4.1, TSH 1.64, hemoglobin 14.1
Chest x-ray no acute cardiopulmonary abnormality
Lexiscan nuclear stress test 12/06/2024 negative for ischemia, fixed inferior, anteroseptal, and apical defect consistent with soft tissue attenuation
echo 01/13/2024: EF 49% by Hahn's biplane method of discs but appears 35 to 40% visually, apical anterior hypokinesis, mild to moderate LVH, normal RV size and function, #29 Saint Willian's mechanical mitral valve prosthesis, peak/mean gradients 03/04
mmHg, mild TR, PASP 30 mmHg.
PMH:
CAD
NSTEMI 05/2018 with Stenting of OM2 with 3.0 x 38 mm Promus stent post dilated with 3.0 mm NC balloon
s/p CABG 06/07/2018, GIL to LAD and saphenous vein graft to PDA
Ischemic cardiomyopathy
Chronic HFrEF
Paroxysmal atrial fibrillation
- Status post PVI 08/2023
- On amiodarone prior to PVI
Chronic Coumadin therapy
Mitral valve repair w/ Sanborn-Fawad izabella-chords to A2 and 26mm annuloplasty ring 06/07/2018
Re-exploration with evacuation of pericardial fluid and modified Robicsek weave reclosure 06/16/18
s/p redo #29 Saint Willian mitral valve replacement 10/17/18
GERD/dysphagia, s/p esophageal dilatation 08/2018 at [facility]
Rate dependent LBBB
Hypertension
Hyperlipidemia
Anxiety/depression
h/o moderate alcohol use/abuse
COVID and penumonia 06/21
Past Medical History
Past Medical History: Other (In HPI)
Past Surgical History: Cardiac (PCI of OM 2, CABGx2 05/2018, mitral valve repair 2017, mitral valve replacement 2018) and Other (Esophageal dilation, elbow surgery 05/2023)
Social History
Tobacco: Non-Smoker
Alcohol: Occasional
Drug: None
Personal:
Living: With Family
Employment: Retired
Family History
Family History: CAD
Allergies / Home Medications
Allergy/AdvReac Type Severity Reaction Status Date / Time
No Known Allergies Allergy Verified 03/27/25 18:31
�Medication �Instructions �Recorded �Confirmed �Type
aspirin 81 mg tablet,delayed 81 mg PO DAILY 06/24/18 03/27/25 Rx
release
carvedilol 3.125 mg tablet 3.125 mg PO BID Heart Failure 10/22/19 03/27/25 History
atorvastatin 80 mg tablet (Lipitor) 80 mg PO QPM High Cholesterol 07/28/23 03/27/25 History
furosemide 40 mg tablet (Lasix) 40 mg PO DAILY #30 tabs 07/30/23 03/27/25 Rx
ezetimibe 10 mg tablet 10 mg PO DAILY High Cholesterol 09/08/23 03/27/25 History
sildenafil 100 mg tablet 100 mg PO DAILY PRN ED 09/08/23 03/27/25 History
acetaminophen 500 mg tablet 1,000 mg PO Q6H PRN arthritis pain 03/27/25 03/27/25 History
trazodone 50 mg tablet 50 mg PO HS Mental Health/Anxiety 03/27/25 03/27/25 History
warfarin 1 mg tablet 1.5 mg PO QPM Blood Clot 03/27/25 03/27/25 History
Prevention/Tx
warfarin 5 mg tablet 5 mg PO QPM Blood Clot 03/27/25 03/27/25 History
Prevention/Tx
Review of Systems
-
History Source: Patient
All other systems: Negative unless noted
Physical Exam
Vital Signs
Temp Pulse Resp BP Pulse Ox
97.3 F 72 16 115/67 95
03/28/25 02:15 03/28/25 02:15 03/28/25 02:15 03/28/25 02:15 03/28/25 02:15
Lab Results
03/27/25 18:55
03/27/25 18:55
Troponin I 0.127 ng/ml H* 03/28/25 02:10
GEN: No distress, awake, Ox3
HEENT: supple, anicteric, mmm
LUNGS: CTA, no wheezes/rales
CV: Reg, S1/S2, +click
ABD: soft, BS+, NT/ND
EXT: No edema
NEURO: Gross non-focal
SKIN: No rash
Impression / Plan
-
PCP: Dr. Kanwal Schmitz
Cardiology: Dr. Aponte
Impression:
Presented with palpitations and dyspnea on exertion
Paroxysmal atrial fibrillation
-PVI 08/2023
-On amiodarone prior to PVI
- Recurrent A-fib 03/27/2025, spontaneously converted to sinus rhythm 03/28/2025
Chronic Coumadin anticoagulation
CAD
NSTEMI 05/2018 with Stenting of OM2 with 3.0 x 38 mm Promus stent post dilated with 3.0 mm NC balloon
s/p CABG 06/07/2018, GIL to LAD and saphenous vein graft to PDA
Ischemic cardiomyopathy
Chronic HFrEF
Mitral valve repair w/ Sanborn-Fawad izabella-chords to A2 and 26mm annuloplasty ring 06/07/2018
Re-exploration with evacuation of pericardial fluid and modified Robicsek weave reclosure 06/16/18
s/p redo #29 Saint Willian mitral valve replacement 10/17/18
GERD/dysphagia, s/p esophageal dilatation 08/2018 at [facility]
Rate dependent LBBB
Hypertension
Hyperlipidemia
Anxiety/depression
h/o moderate alcohol use/abuse
Lexiscan stress test 03/06/2023: Perfusion imaging reveals a small-medium area of mildly decreased perfusion that is fixed in the basal inferolateral segment, basal inferior segment, mid inferolateral segment, mid inferior segment, and apical inferior
segment consistent with infarction. EF 49%.
Lexiscan nuclear stress test 12/06/2024: negative for ischemia, fixed inferior, anteroseptal, and apical defect consistent with soft tissue attenuation
Echo 04/07/2023: EF 42%, mild concentric LVH, mild global hypokinesis, s/p # 29 mechanical Saint Willian mitral valve with peak/mean gradients 8/4 mmHg, no MR, aortic sclerosis with trace AR, trace TR, estimated PAP 21 mmHg
Echo 07/28/2023: EF 25-30%, global hypokinesis with more hypokinesis of the anteroseptal wall and apex, biatrial enlargement, s/p #[address] Willian mechanical mitral valve prosthesis with peak/mean gradients 10/5 mmHg, trace MR
Echo 01/13/2024: EF 49% by Hahn's biplane method of discs but appears 35 to 40% visually, apical anterior hypokinesis, mild to moderate LVH, normal RV size and function, #29 Saint Willian's mechanical mitral valve prosthesis, peak/mean gradients 03/04
mmHg, mild TR, PASP 30 mmHg.
Plan:
Recurrent atrial fibrillation
-Presents following episode of A-fib with rapid ventricular response, spontaneously converted to sinus rhythm after IV Lopressor
-Could have been precipitated by dehydration in setting of 2-day history of diarrhea
-Echo today pending
-INR therapeutic on warfarin, 2.89 03/28/2025
-Continue Coreg
- If recurrent A-fib, consider resuming amiodarone
chronic heart failure with reduced ejection fraction
-Does not appear volume overloaded on exam.
-Repeating echo today
-Continue home heart failure regimen including carvedilol, Lasix. Hypotension has precluded uptitration of GDMT in past, including initiation of spironolactone. Per office records, Lisinopril stopped in 2022 when he had hypotension
-Consider SGLT2 inhibitor as outpt
History of mechanical MVR
-Continue Coumadin for anticoagulation given Afib and mechanical mitral valve. Goal INR 2.5-3.5, ideally closer to 2.5 given prior hemorrhage
- Checking echo today
- Needs lifelong SBE prophylaxis
History of CAD
-Troponin Mildly elevated with peak at 0.127, now downtrending. Patient did have chest discomfort in setting of A-fib with RVR and reports years of experiencing constant chest soreness/pressure. -Nuclear stress test in November 2024 negative for
ischemia.
-Continue aspirin, lipitor, and zetia.
- LDL goal should be less than 55
Discussed with nursing and at bedside
Data Reviewed
-
EKG: Tracing Personally Visualized and interpreted
Labs: Labs Reviewed by me
Old Records: Reviewed
[2025-03-28] MEDS: COREG 3.125 MG PO (08:15)
[2025-03-28] MEDS: ASPIR LOW (ENTERIC COATED) 81 MG PO (08:15)
[2025-03-28] MEDS: ZETIA 10 MG PO (08:15)
[2025-03-28] MEDS: LASIX 40 MG PO (08:16)
[2025-03-28 08:36] LABS: INR 2.89; PT 30.2 Sec (11.4-14.6)
[2025-03-28 08:37] LABS: APTT 42.7 Sec (23.4-35.0)
[2025-03-28 09:05] LABS: Troponin I 0.108 ng/ml
--- NOTE | 2025-03-28 13:04 | W.PN.HOSP.TC ---
Today's Communication/Plan
-
f/u echo result
continue current meds
Assessment / Plan
Assessment / Plan
1. Chest pain
Troponin elevation
History of multivessel CAD/bypass x2
- Reported chest discomfort which is episodic in nature
- recent outpt stress test was neg for rev ischemia
- Trop maxed at 0.12, trending down
- EKG showing chronic left lateral branch block
2. Paroxysmal afib with RVR
h/o of afib s/p PVI
- EKG reviewed and had regular fast heart rate at admission
- Patient got PO Lopressor with improvement in HR
- await further cardiology input
- INR therapeutic, maintained on warfarin
3. Chronic systolic congestive heart failure
- Repeat echocardiogram pending
- No signs of heart failure exacerbation, being maintained on home dose of Lasix/Coreg
h/o Mechanical mitral valve s/p redo sx
Elevated PSA
BPH
h/o prostate biopsy
Essential hypertension
Gastroesophageal reflux disease
Hyperlipidemia
Depression/anxiety
DVT PPX - warfarin
Full code
Total time spent ; 54mins
Anticipated Discharge: 24 - 48 hours
Subjective/Interval History
-
Date of Service: March 28, 2025
no palpitation/chest discomfort after transferred to floor
denies shortness breath
Objective Data
-
Labs:
Laboratory Results
03/28/25
07:27
PT 30.2 H
INR 2.89
APTT 42.7 H
Vital Signs:
Vital Signs
Temp Pulse Resp BP Pulse Ox
97.9 F 69 12 121/72 96
03/28/25 11:00 03/28/25 11:00 03/28/25 11:00 03/28/25 11:00 03/28/25 11:00
I&O
03/27/25 03/28/25 03/29/25
06:59 06:59 06:59
Intake Total 430 / 430 300 / 300
Balance 430 / 430 300 / 300
Review of Systems
-
Respiratory: Reports No Symptoms
Cardiac: Reports No Symptoms
Abdomen/GI: Reports No Symptoms
Physical Exam
-
General: No Apparent Distress and Comfortable
HEENT: Negative Oxygen
Respiratory: Clear to Auscultation
Cardiac: Regular Rhythm and S1/S2; Negative Murmur or Rub
GI: Soft, Nontender, Nondistended and Normal Bowel Sounds
Musculoskeletal: No Edema
Neuro: Awake, Alert, Oriented, No Motor Deficits and Nonfocal/Grossly Intact
Psych: Calm
[2025-03-28 14:04] LABS: HDL Cholesterol 42 mg/dl; LDL Cholesterol, Calculated 66 mg/dl; Very Low Density Lipoprotein 26 mg/dl (0-30)
--- NOTE | 2025-03-28 15:24 | CM ---
Alert awake oriented patient who lives with his Lynn who lives in a 1 story home with 2 step to enter. He is independent in driving and in all activities of daily living.He was offered VN he declined need.No adaptive devices.Hinds letter given
explained signed on chart.
[facility] history
Pharmacy [facility]
PCP DR Lynn Ibarra
PLAN Home Declined VN
--- NOTE | 2025-03-28 17:00 | W.DCSUMMARY ---
Discharge Summary
Discharge Data
Date of Admission: 03/27/25
Date of Discharge: 03/28/25
-
Pending Results: No
Hospital Course
Discharging Physician : Dr Virgilio Hannah
Disposition : TO home
Primary care physician : Unknown
Principal Discharge diagnosis :
Breakthrough episode of atrial fibrillation with rapid ventricular rate
Chest pain
Troponin elevation
Chronic Discharge diagnosis :
History of atrial fibrillation post pulmonary vein isolation
Chronic systolic congestive heart failure
History of coronary disease
History of mechanical mitral valve status post redo surgery
Benign prostatic hyperplasia
Essential hypertension
Gastroesophageal reflux disease
Hyperlipidemia
Depression/anxiety
Chronic left bundle branch block
Hospital Course :
Patient is a 75-year-old male with admission past medical history came to ER with new onset of chest discomfort. Patient have a history of multivessel coronary disease/bypass and have undergone stress test earlier this year without any signs of
reversible ischemia. Patient was noted to having breakthrough A-fib RVR on EKG. Patient apparently undergone ablation procedure for A-fib in the past. Patient was provided beta-glo therapy with improvement in heart rate. Cardiology involved
in care and patient troponin were trended, minimal elevation noted with rapid downtrend. Repeat echocardiogram did not show any new changes. Patient was cleared for discharge at this point.
Important imaging findings :
None
Procedure findings :
None
Discharge Plan
-
Patient Disposition: Home (Routine Discharge)
Discharge Diagnosis/Procedures: Chest pain, afib/rvr
Condition: Fair
Diet: Low Cholesterol and 2 Gram Sodium
Activity: As tolerated
Driving Restrictions: As prior to admission
Bathing Restrictions: OK to Shower
Referrals:
Devan Aponte, DO [Active, Cardiology] - in two to four weeks
UNKNOWN - PT DOES,NOT KNOW [Family Provider]
Prescriptions:
Continued
aspirin 81 MG tablet,delayed release (DR/EC)
81 mg PO DAILY 0RF
carvedilol 3.125 MG tablet
3.125 mg PO BID
atorvastatin [Lipitor] 80 mg Tablet
80 mg PO QPM
furosemide [Lasix] 40 mg tablet
40 mg PO DAILY Qty: 30 0RF
sildenafil 100 mg Tablet
100 mg PO DAILY PRN (Reason: ED)
ezetimibe 10 mg Tablet
10 mg PO DAILY
trazodone 50 mg Tablet
50 mg PO HS
acetaminophen 500 mg Tablet
1,000 mg PO Q6H PRN (Reason: arthritis pain)
warfarin 5 mg Tablet
5 mg PO QPM
Patient Comments:
pt takes with 1.5mg = 6.5mg daily
warfarin 1 mg Tablet
1.5 mg PO QPM
Patient Comments:
pt takes with 5mg = 6.5mg daily
Discharge Orders:
Discharge Patient (As Directed); Ordered 03/28/25
Ordered By: Virgilio Hannah
Discharge Date and Time
Print Language: ESTONIAN
[2025-03-28] MEDS: LIPITOR 80 MG PO (17:31)
[2025-03-28] MEDS: COUMADIN 2.5 MG PO (17:31)
[2025-03-28] MEDS: COUMADIN 4 MG PO (17:31)
== END 2025-03-28 18:04 | disposition home or self-care (01) | DRG 309 ==
LOC: 4 EAST ACU 16:53
PROVIDERS: Nurse Practitioner; ADMITTING PHYSICIAN Internal Medicine; ATTENDING PHYSICIAN Hospitalist; EMERGENCY PHYSICIAN Emergency Medicine; OTHER PHYSICIAN Internal Medicine Cardiovascular Disease
DX: I48.0 Paroxysmal atrial fibrillation (principal); I50.22 Chronic systolic (congestive) heart failure; I48.92 Unspecified atrial flutter; I25.10 Atherosclerotic heart disease of native coronary artery without angina pectoris; D64.9 Anemia, unspecified; I44.7 Left bundle-branch block, unspecified; F32.A Depression, unspecified; K21.9 Gastro-esophageal reflux disease without esophagitis; R13.10 Dysphagia, unspecified; D50.9 Iron deficiency anemia, unspecified; N40.0 Benign prostatic hyperplasia without lower urinary tract symptoms; I25.5 Ischemic cardiomyopathy; I70.0 Atherosclerosis of aorta; I42.8 Other cardiomyopathies; I11.0 Hypertensive heart disease with heart failure; F41.9 Anxiety disorder, unspecified; Z87.01 Personal history of pneumonia (recurrent); Z95.5 Presence of coronary angioplasty implant and graft; Z95.2 Presence of prosthetic heart valve; Z79.899 Other long term (current) drug therapy; Z95.1 Presence of aortocoronary bypass graft; Z79.01 Long term (current) use of anticoagulants; Z79.82 Long term (current) use of aspirin; I25.2 Old myocardial infarction; Z86.16 Personal history of COVID-19
CPT/HCPCS: 71046; 80053; 80061; 84443; 84484; 85025; 85610; 85730; 93005; 93306; 96374; 99285

== ENCOUNTER → 2025-04-10 06:58 | Outpatient (REF) | payer MEDICARE, OTHER, SELFPAY ==
[2025-04-10 07:45] LABS: INR 1.50; PT 18.4 Sec (11.4-14.6)
== END ==
LOC: OLAB 06:58
PROVIDERS: ATTENDING PHYSICIAN Nuclear Medicine Nuclear Cardiology
DX: Z79.01 Long term (current) use of anticoagulants (principal); I48.0 Paroxysmal atrial fibrillation
CPT/HCPCS: 85610

== ENCOUNTER → 2025-04-13 18:06 | Outpatient (REF) | payer MEDICARE, OTHER, SELFPAY | LOC: CLAB 18:06 | PROVIDERS: ATTENDING PHYSICIAN Nurse Practitioner Adult Health | DX: R97.20 Elevated prostate specific antigen [PSA] (principal) | CPT/HCPCS: 88305; 88344 ==

== ENCOUNTER 2025-06-02 06:23 | Outpatient (RCR) | payer MEDICARE, OTHER, SELFPAY | END 2025-06-02 23:59 | disposition home or self-care (01) | LOC: RPT 06:23 | PROVIDERS: ATTENDING PHYSICIAN Specialist; FAMILY PHYSICIAN Family Medicine | DX: C61 Malignant neoplasm of prostate (principal); M62.89 Other specified disorders of muscle; Z73.6 Limitation of activities due to disability | CPT/HCPCS: 97162; 97530 ==

== ENCOUNTER → 2025-06-04 07:10 | Outpatient (REF) | payer MEDICARE, OTHER, SELFPAY ==
[2025-06-04 07:55] LABS: INR 1.63; PT 19.5 Sec (11.4-14.6)
== END ==
LOC: REG 07:10
PROVIDERS: ATTENDING PHYSICIAN Nuclear Medicine Nuclear Cardiology; FAMILY PHYSICIAN Family Medicine
DX: Z79.01 Long term (current) use of anticoagulants (principal); I48.0 Paroxysmal atrial fibrillation
CPT/HCPCS: 36415; 85610

== ENCOUNTER 2025-06-07 08:40 | Inpatient (IN) | payer MEDICARE, OTHER, SELFPAY ==
[2025-06-07] VITALS (13 sets, daily range): BP systolic 93–130; BP diastolic 61–89; BMI 27.1
[2025-06-07] MEDS: NEBCIN 480 MG/100 ML ENEMA 1 BOTTLE RECTAL (09:04)
[2025-06-07] MEDS: NORMOSOL-R/PLASMALYTE-A 1000 IV ×2 (09:04→16:40)
--- NOTE | 2025-06-07 11:39 | W.IMMPOSTOP ---
Surgical Immed Post Op Note
-
Primary Surgeon: Chuck
Assisting Surgeon: Urban
Pre-op Diagnosis: Prostate cancer
Post-op Diagnosis: Same
Procedure Performed: Radical perineal prostatectomy, bladder neck reconstruction
Anesthesia Type: GET
Specimen / Cultures: prostate; bladder neck and urethral margins
Estimated Blood Loss: 150 ml
Complications: None
[2025-06-07 12:17] LABS: Hematocrit 37.9 % (39.0-52.0); Hemoglobin 12.1 g/dL (13.0-18.0)
[2025-06-07 12:31] LABS: Blood Urea Nitrogen 14 mg/dl (9-20); Calcium 8.1 mg/dl (8.4-10.2); Carbon Dioxide 27 mmol/L (22-30); Chloride 103 mmol/L (98-107); Estimated Creatinine Clearance 78 ml/min; Glucose 111 mg/dl (70-99); Potassium 4.7 mmol/L (3.5-5.1); Sodium 131 mmol/L (135-145); eGFR > 60.00
[2025-06-07] MEDS: DILAUDID 0.5 MG IV (12:41)
[2025-06-07] MEDS: DILAUDID 0.25 MG IV (13:25)
[2025-06-07] MEDS: DETROL LA 4 MG PO (13:29)
--- NOTE | 2025-06-07 16:15 | PTCARENOTE ---
Pt received from the PACU via bed. Transport was w/o incident. Pt is AAOx3, HRR, lungs are clear, resp. easy. Pt's vega cath with bloody urine noted. Per Report the surgical team aware. Pt's dressing to perineum w/ bloody drainage. Will reinforce
as needed/ordered. VSS, Pt is afebrile. Pt denies nausea or pain at this time. Pt instructed on plan of care. Pt verbalized understanding of instructions. Call walker is within reach.
[2025-06-07] MEDS: COUMADIN 5 MG PO (16:57)
[2025-06-07] MEDS: COLACE 100 MG PO (16:58)
[2025-06-07] MEDS: TYLENOL 650 MG PO (16:58)
[2025-06-07] MEDS: LIPITOR 80 MG PO (18:16)
[2025-06-07] MEDS: POLYSPORIN/DOUBLE ANTIBIOTIC 1 APPLIC TOPICAL (20:38)
[2025-06-07] MEDS: COREG 6.25 MG PO (20:38)
[2025-06-07] MEDS: VALIUM INJECTION 5 MG IV (22:20)
[2025-06-08] MEDS: MORPHINE SULFATE 4 MG IV ×2 (01:40→04:31)
[2025-06-08] MEDS: NORMOSOL-R/PLASMALYTE-A IV ×2 (01:50→19:30)
[2025-06-08 03:00] VITALS: BP 124/66
[2025-06-08 06:00] VITALS: BMI 27.4
[2025-06-08 07:15] VITALS: BP 135/69
[2025-06-08] MEDS: COLACE 100 MG PO ×3 (08:11→21:47)
[2025-06-08] MEDS: ASPIR LOW (ENTERIC COATED) 81 MG PO (08:12)
[2025-06-08] MEDS: ZETIA 10 MG PO (08:12)
[2025-06-08] MEDS: COREG 6.25 MG PO ×2 (08:12→21:47)
[2025-06-08] MEDS: LASIX 40 MG PO (08:13)
[2025-06-08] MEDS: POLYSPORIN/DOUBLE ANTIBIOTIC 1 APPLIC TOPICAL ×2 (08:14→21:47)
[2025-06-08 09:00] VITALS: BMI 27.4
[2025-06-08 09:05] LABS: Hematocrit 32.3 % (39.0-52.0); Hemoglobin 10.6 g/dL (13.0-18.0); Mean Corp Hgb Conc. 32.8 g/dL (33.0-37.0); Mean Corpuscular Volume 86.8 fL (80.0-94.0); Platelet Count 221 10^3/uL (130-400); Red Cell Dist. Width 12.7 % (11.5-14.5)
--- NOTE | 2025-06-08 09:32 | W.PN.SURGUPD ---
Surgical Update
Surgical Update
Stable 1 day s/p radical perineal prostatectomy
Afeb
VSS
Tolerating diet
Hgb good
Urine clear
Incision clean/dry
Scrotal ecchymosis
---
Resume Lovenox this AM
Advance activity
[2025-06-08 10:09] LABS: Blood Urea Nitrogen 13 mg/dl (9-20); Calcium 8.4 mg/dl (8.4-10.2); Carbon Dioxide 26 mmol/L (22-30); Chloride 100 mmol/L (98-107); Estimated Creatinine Clearance 78 ml/min; Glucose 142 mg/dl (70-99); Potassium 4.4 mmol/L (3.5-5.1); Sodium 131 mmol/L (135-145); eGFR > 60.00
--- NOTE | 2025-06-08 10:15 | CM ---
Patient seen bedside w/ spouse, initial assessment completed. Stable 1 day s/p radical perineal prostatectomy.
Patient resides w/ spouse in a single story home w/ garage and basement, 2 steps to enter. Patient is independent in all areas. No SNF hx, OP PT recently last week. CM consulted for VN for vega and wound care. Discussed w/ patient and spouse,
agreeable to use [facility]. TT [facility] liaison to make aware.
[facility]

Plan: Home w/ [facility]
[2025-06-08 11:05] VITALS: BP 124/68
[2025-06-08] MEDS: TYLENOL 650 MG PO (11:56)
[2025-06-08] MEDS: LOVENOX 80 MG SC ×2 (11:57→21:47)
[2025-06-08] MEDS: LEVAQUIN 100 IV (11:58)
--- NOTE | 2025-06-08 12:38 | VNURNOTE ---
Home Health Liaison met with patient and daughter at bedside to discuss [facility] nurse/therapy, visits, schedule and homebound status. Patient is agreeable and understands that visits at home will be 2-3 x per week to assess and teach medical and
vega management.
Patient is aware that [facility] will contact them for start of care within a few days after discharge from . Provided contact number for [facility].
PM [facility] referral completed in Care Port.
[2025-06-08 15:00] VITALS: BP 107/70
[2025-06-08] MEDS: COUMADIN 5 MG PO (17:48)
[2025-06-08] MEDS: LIPITOR 80 MG PO (17:49)
[2025-06-08] MEDS: PERCOCET 5/325 1 TABLET PO (19:51)
[2025-06-08 23:00] VITALS: BP 122/71
[2025-06-09] VITALS (12 sets, daily range): BP systolic 97–158; BP diastolic 65–88; BMI 27.3
[2025-06-09] MEDS: MORPHINE SULFATE 4 MG IV (00:10)
--- NOTE | 2025-06-09 00:45 | PTCARENOTE ---
Addendum entered by Kamilah Morales RN 06/09/25 01:23:
H&H ordered for this AM
Original Note:
0041: notified Dr. Garcia of copious amount of sanguineous out put and clots from incision and june. No new orders at this time.
[2025-06-09] MEDS: DETROL LA 4 MG PO (03:19)
[2025-06-09] MEDS: MYLICON 80 MG PO (03:48)
[2025-06-09] MEDS: PERCOCET 5/325 1 TABLET PO ×3 (04:03→19:31)
[2025-06-09 07:21] LABS: Hematocrit 27.6 % (39.0-52.0); Hemoglobin 9.1 g/dL (13.0-18.0)
[2025-06-09] MEDS: LASIX 40 MG PO (08:58)
[2025-06-09] MEDS: COLACE 100 MG PO ×3 (08:58→16:34)
[2025-06-09] MEDS: COREG 6.25 MG PO ×2 (08:58→20:26)
[2025-06-09] MEDS: ASPIR LOW (ENTERIC COATED) 81 MG PO (08:58)
[2025-06-09] MEDS: ZETIA 10 MG PO (08:58)
[2025-06-09] MEDS: POLYSPORIN/DOUBLE ANTIBIOTIC 1 APPLIC TOPICAL ×2 (08:59→20:31)
--- NOTE | 2025-06-09 10:09 | W.PN.URO.CBU ---
Today's Communication / Plan
-
Repeat Hgb at 1500
Transfuse as needed
Hold Lovenox and aspirin
Consider holding warfarin
Assessment / Plan
-
Post op day 2 s/p radical perineal prostatectomy
Will discontinue Lovenox due to perineal ecchymosis that developed overnight accompanied by increased bloody drainage from Maya drain site: have notified cardiology
Diagnosis
-
Date of Service: June 09, 2025
-
Patient Diagnosis:
Prostate cancer
---
History of ischemic cardiomyopathy with CABG ago
Subjective
-
Comfortable
Tolerating diet
Passing flatus
Objective
-
Vital Signs
Temp Pulse Resp BP Pulse Ox
98.1 F 92 16 118/74 96
06/09/25 07:00 06/09/25 07:00 06/09/25 07:00 06/09/25 07:00 06/09/25 07:00
Intake and Output
06/08/25 06/09/25 06/10/25
06:59 06:59 06:59
Intake Total 1200 / 1200 1502 / 1502
Output Total 975 / 975 3400 / 3400
Balance 225 / 225 -1898 / -1898
Intake:
Oral fluids 1402 / 1402
IV fluids (Total) 1200 / 1200
normosol 300 / 300
IV piggybacks 100 / 100
Output:
Urine, Amin 975 / 975 2800 / 2800
Urine, Voided 600 / 600
Laboratory Results
06/09/25 07:07
06/08/25 07:57
Review of Systems
-
Constitutional: No Symptoms
Respiratory: No Symptoms
Cardiac: No Symptoms
Abdomen/GI: No Symptoms
Musculoskeletal: No Symptoms
Neurological: No Symptoms
Physical Exam
-
General - well developed, well nourished, no acute distress
Abdomen - soft, non-tender
Genitalia - Amin draining clear urine, scrotal and perineal ecchymosis. Maya drain removed
Skin - warm & dry with no rash
Neuro - AOx3, no motor deficits
Counseling
-
Have discussed anticoagulation concerns with cardiology
Will repeat Hgb and transfuse as needed
[2025-06-09] MEDS: LOVENOX SC (10:32)
[2025-06-09] MEDS: LEVAQUIN 100 IV (10:44)
[2025-06-09 11:21] LABS: INR 1.26; PT 15.6 Sec (11.4-14.6)
--- NOTE | 2025-06-09 12:53 | W.PN.CARDCBS ---
Addendum entered and electronically signed by Kristina Serrano PA-C 06/09/25 16:05:
addend to below: acute blood loss anemia
Addendum entered and electronically signed by Bertin Reynolds MD 06/09/25 14:14:
I saw and examined the patient.
The Print Shop Chief Clerk's note was reviewed and I agree with the note.
Comment:
GEN: No distress, awake, Ox3
HEENT: supple, anicteric, mmm
LUNGS: CTA, no wheezes/rales
CV: Reg, S1/S2, 1/6 syst LSB, no gallop
ABD: soft, BS+, NT/ND
EXT: No edema
NEURO: Gross non-focal
SKIN: No rash
PLan:
75-year-old male with past medical history of CABG/coronary artery disease, ischemic cardiomyopathy, paroxysmal atrial fibrillation, mechanical mitral valve, and chronic heart failure with reduced ejection fraction presents for elective
prostatectomy. He overall did well post procedurally but then started having significant bleeding on postop day 1. He was given Lovenox and Coumadin postprocedure. His hemoglobin decreased from 12.1-9.1. He has been having incisional bleeding
along with drainage from his JOSE drains. INR is 1.26
From a cardiac standpoint he is doing well. Continue carvedilol 6.25 mg twice daily, Zetia, and atorvastatin. His blood pressure is stable.
Would recommend holding Lovenox for now. Continue to follow hemoglobin. Would reassess in the a.m. plans for continuation of Lovenox/heparin versus continuing Coumadin alone.
Will await hemoglobin and INR in a.m. I discussed with urology.
Continue to follow on telemetry.
Original Note:
Today's Communication / Plan
-
hold lovenox and coumadin
follow hgb
hopefully can start IV heparin 06/10
follow INR
tele
Impression / Plan
-
Please refer to office note dated 05/23/25 to be used as H&P
Primary Automotive Mechanic: Dr. Aponte
Assessment:
Prostate cancer status post radical prostatectomy 06/07/2025
Acute postop anemia
CAD
NSTEMI 05/2018 with Stenting of OM2 with 3.0 x 38 mm Promus stent post dilated with 3.0 mm NC balloon
s/p CABG 06/07/2018, GIL to LAD and saphenous vein graft to PDA
Ischemic cardiomyopathy, EF 35-40%
Chronic HFrEF
Paroxysmal atrial fibrillation
- Status post PVI 08/2023
- On amiodarone prior to PVI
- recurrence 02/2025 with spontaneous conversion
Chronic Coumadin therapy
Mitral valve repair w/ [place]-Fawad izabella-chords to A2 and 26mm annuloplasty ring 06/07/2018
Re-exploration with evacuation of pericardial fluid and modified Robicsek weave reclosure 06/16/18
s/p redo #29 [facility] mechanical mitral valve replacement 10/17/18
GERD/dysphagia, s/p esophageal dilatation 08/2018 at [facility]
Rate dependent LBBB
Hypertension
Hyperlipidemia
Anxiety/depression
h/o moderate alcohol use/abuse
ECHO 03/28/25: EF 35-40%, aortic sclerosis, trace AI, global LV hypokinesis, paradoxical septal motion, #29mm [place] mech MVR with peak/mean gradients 8.4/2mmHg, trace MR, mild cLVH
Plan:
- Patient underwent radical prostatectomy 06/07/2025 for prostate cancer
- He was started back on Lovenox as well as Coumadin 06/08, however then overnight developed oozing from hematoma with saturation of multiple dressings per nursing. Hemoglobin has downtrended to 9.1, continue to follow. May require transfusion.
Did report some dizziness with ambulation earlier today
- Hold Lovenox and Coumadin today
- INR 1.26. Goal 2.5-3.5, followed by [facility] office
- Hopefully can start IV heparin at some point 06/10. ideally limit time off OAC as much as possible given mechanical MVR
- Will place on telemetry
- Continue postoperative care
- Will follow
- Discussed with nursing. discussed with patient/family at bedside.
Progress Note - Automotive Mechanic
Subjective
Date of Service: June 09, 2025
denies CP, SOB. reports less pain than yesterday
Objective
Labs:
06/08/25 07:57
Labs
Hgb 9.1 g/dL (13.0-18.0) L 06/09/25 07:07
Hct 27.6 % (39.0-52.0) L 06/09/25 07:07
Plt Count 221 10^3/uL (130-400) 06/08/25 07:57
PT 15.6 Sec (11.4-14.6) H 06/09/25 11:01
INR 1.26 06/09/25 11:01
Sodium 131 mmol/L (135-145) L 06/08/25 07:57
Potassium 4.4 mmol/L (3.5-5.1) 06/08/25 07:57
BUN 13 mg/dl (9-20) 06/08/25 07:57
Creatinine 0.9 mg/dL (0.7-1.3) 06/08/25 07:57
Glucose 142 mg/dl (70-99) H 06/08/25 07:57
Vital Signs and I&O:
Vital Signs
Temp Pulse Resp BP Pulse Ox
98.2 F 100 16 100/68 97
06/09/25 11:53 06/09/25 11:53 06/09/25 11:53 06/09/25 11:53 06/09/25 11:53
Vital Signs
Temp Pulse Resp BP Pulse Ox
98.2 F 100 16 100/68 97
06/09/25 11:53 06/09/25 11:53 06/09/25 11:53 06/09/25 11:53 06/09/25 11:53
Intake & Output
06/07/25 06/08/25 06/09/25 06/10/25
07:59 07:59 07:59 07:59
Intake Total 1200 / 1200 1502 / 1502
Output Total 975 / 975 3400 / 3400
Balance 225 / 225 -1898 / -1898
Physical Exam
Physical Exam
GEN: No distress, awake, alert, oriented x3
HEENT: supple, anicteric, mmm, eomi
LUNGS: CTA B/L, no wheezes/rales
CV: Reg, S1/S2, mech valve click
ABD: soft, BS+, NT/ND
EXT: No cyanosis, clubbing, edema
NEURO: Gross non-focal
SKIN: Warm, pink, dry. No rash
--- NOTE | 2025-06-09 14:37 | PN.CDI ---
CDI
- -
CDI:
Physician Documentation Request
Admit Date: 06/07/25 08:40
Dear Doctor Chuck,
Please review the following and provide your response in the progress notes.
Clinical Indicators:
Pt admitted for Prostate cancer status post radical prostatectomy 06/07/2025
06/09 Urology PN: ' Post op day 2 s/p radical perineal prostatectomy
Will discontinue Lovenox due to perineal ecchymosis that developed overnight accompanied by increased bloody drainage from Maya drain site: have notified cardiology'
06/09 Cardiology: ' He overall did well post procedurally but then started having significant bleeding on postop day 1. He was given Lovenox and Coumadin postprocedure. His hemoglobin decreased from 12.1-9.1. He has been having incisional
bleeding along with drainage from his JOSE drains. INR is 1.26....hold lovenox and coumadin'
Please clarify the relationship between these conditions:
Yes, increased bloody drainage from Maya site is related to/associated with/exacerbated by Lovenox.
No, increased bloody drainage from Maya site is not related to/associated with/exacerbated by Lovenox
Other
Use of terms such as suspected, likely, concern for, or probable (associated with a specific diagnosis that is being evaluated, monitored, or treated as if it exists) are acceptable and can be coded in the inpatient setting, when documented at the
time of discharge.
Thank you,
Ilana Connor RN, BSN
CDI Specialist
[place] [facility]
Please use your independent medical judgment in providing your response.
[2025-06-09 15:08] LABS: Hemoglobin 7.6 g/dL (13.0-18.0)
--- NOTE | 2025-06-09 15:38 | PN.CDI ---
CDI
- -
CDI:
Physician Documentation Request
Admit Date: 06/07/25 08:40
Dear Cardiology,
Please review the following and provide your response in the progress notes.
Clinical Indicators:
Pt admitted for Prostate cancer status post radical prostatectomy 06/07/2025
06/09 Cardiology Progress Note: ' Acute postop anemia'
'started having significant bleeding on postop day 1. He was given Lovenox and Coumadin postprocedure. His hemoglobin decreased from 12.1-9.1. He has been having incisional bleeding along with drainage from his JOSE drains..... INR is 1.26 May
require transfusion. Did report some dizziness with ambulation earlier today'
Based on the above, could you clarify, in your progress note, which of the following is the most likely type of anemia you are evaluating, monitoring and/or treating?
Acute blood loss anemia
Multifactorial due to acute blood loss anemia and hemodilutional
Acute blood loss anemia with baseline chronic anemia (Specify type)
Other
Use of terms such as suspected, likely, concern for, or probable (associated with a specific diagnosis that is being evaluated, monitored, or treated as if it exists) are acceptable and can be coded in the inpatient setting, when documented at the
time of discharge.
Thank you,
Ilana Connor RN, BSN
CDI Specialist
[place] [facility]
Please use your independent medical judgment in providing your response.
--- NOTE | 2025-06-09 15:53 | CM ---
Chart reviewed. Case Management will monitor for discharge needs and support when identified
--- NOTE | 2025-06-09 16:22 | W.PN.UPDATE ---
Update Note
Progress Note Update
Hgb dropped to 7.6 at 1500
Patient remains HD stable
Given cardiac history will transfuse 2 units PRBC overnight
Incisional drainage/bleeding slowed significantly
Check labs in AM
Nightly warfarin: no other AC meds
[2025-06-09] MEDS: LIPITOR 80 MG PO (19:31)
[2025-06-09] MEDS: EMLA CREAM 5 GRAM TOPICAL (20:31)
[2025-06-10] VITALS (8 sets, daily range): BP systolic 104–125; BP diastolic 52–80; BMI 26.5
[2025-06-10] MEDS: MELATONIN 5 MG PO (00:06)
[2025-06-10] MEDS: PERCOCET 5/325 1 TABLET PO ×4 (00:13→22:49)
[2025-06-10 03:08] LABS: Hemoglobin 8.8 g/dL (13.0-18.0)
[2025-06-10 07:31] LABS: Hematocrit 26.2 % (39.0-52.0); Hemoglobin 8.6 g/dL (13.0-18.0); Mean Corp Hgb Conc. 32.8 g/dL (33.0-37.0); Mean Corpuscular Volume 85.3 fL (80.0-94.0); Nucleated Red Blood Cells % 0 % (-); Platelet Count 157 10^3/uL (130-400); Red Cell Dist. Width 13.2 % (11.5-14.5)
[2025-06-10] MEDS: LASIX 40 MG PO (08:36)
[2025-06-10] MEDS: ASPIR LOW (ENTERIC COATED) 81 MG PO (08:37)
[2025-06-10] MEDS: COREG 6.25 MG PO ×2 (08:37→21:03)
[2025-06-10] MEDS: COLACE 100 MG PO ×3 (08:37→17:35)
[2025-06-10] MEDS: ZETIA 10 MG PO (08:37)
[2025-06-10] MEDS: EMLA CREAM 5 GRAM TOPICAL ×2 (08:37→21:04)
[2025-06-10] MEDS: POLYSPORIN/DOUBLE ANTIBIOTIC 1 APPLIC TOPICAL ×2 (08:38→21:04)
[2025-06-10] MEDS: MIRALAX 17 GRAMS PO (08:38)
[2025-06-10] MEDS: LEVAQUIN 100 IV (10:07)
--- NOTE | 2025-06-10 10:34 | W.PN.URO.CBU ---
Addendum entered and electronically signed by Ian Duggan Jr., MD 06/10/25 14:21:
hgb and exam stable
begin coumadin at 5mg dose tonight
continue asa
Original Note:
Today's Communication / Plan
-
serial hgb and exams
restart coumadin tonight if no evid of bleed
Assessment / Plan
-
Post op day 3 s/p radical perineal prostatectomy
post op bleed after esumption of anticoagulation
cardiology on board
on asa- lovenox and coumadin have been held
received 2 units prbc's yesterday- hgb stable
reviewed with pt and cardiology
to recheck hgb this afternoon- if stable- may begin nightly coumadin dosing and observe
Diagnosis
-
Date of Service: June 10, 2025
-
Patient Diagnosis:
Prostate cancer
s/p RPP
---
History of ischemic cardiomyopathy with CABG ago
post op bleed
Subjective
-
pt feels better today
received 2 units PRBC's yesterday- hgb did bump somewhat- stable this am
exam stable with no evid of sig hematoma or wound drainge
vega functional- urine clearing
Objective
-
Vital Signs
Temp Pulse Resp BP Pulse Ox
98.2 F 83 16 108/80 94
06/10/25 08:08 06/10/25 08:08 06/10/25 08:08 06/10/25 08:08 06/10/25 08:08
Intake and Output
06/09/25 06/10/25 06/11/25
06:59 06:59 06:59
Intake Total 1502 / 1502 660 / 1400 740 / 740
Output Total 3400 / 3400 1270 / 1270
Balance -1898 / -1898 -610 / 130 740 / 740
Intake:
Oral fluids 1402 / 1402 660 / 900 240 / 240
IV piggybacks 100 / 100
Blood products 500 / 500
Blood Product Amount Infused ( 0 / 0
mL)
Packed Rbc Leukoreduced Unit 0 / 0
[id number]
Packed Rbc Leukoreduced Unit 0 / 0
[id number]
Output:
Urine, Vega 2800 / 2800 1270 / 1270
Urine, Voided 600 / 600
Laboratory Results
06/08/25 07:57
Review of Systems
-
Constitutional: Fatigue
Respiratory: No Symptoms
Cardiac: No Symptoms
Abdomen/GI: No Symptoms
Physical Exam
-
General - no acute distress
Abdomen - soft, non-tender
Genitalia - vega in place- some scrotal bruising- stable
Skin - warm & dry with no rash
Neuro - AOx3, no motor deficits
Extremities - no clubbing, no cyanosis, no edema
Incision - no sig bloody drainage- ecchymosis- but no sig hematoma palp
--- NOTE | 2025-06-10 12:53 | W.PN.CARDCBS ---
Today's Communication / Plan
-
No heparin per urology with high risk of bleeding
Start Coumadin if hemoglobin is stable
Impression / Plan
-
Please refer to office note dated 05/23/25 to be used as H&P
Primary Offbearer: Dr. Aponte
Assessment:
Prostate cancer status post radical prostatectomy 06/07/2025
Acute postop anemia
CAD
NSTEMI 05/2018 with Stenting of OM2 with 3.0 x 38 mm Promus stent post dilated with 3.0 mm NC balloon
s/p CABG 06/07/2018, GIL to LAD and saphenous vein graft to PDA
Ischemic cardiomyopathy, EF 35-40%
Chronic HFrEF
Paroxysmal atrial fibrillation
- Status post PVI 08/2023
- On amiodarone prior to PVI
- recurrence 02/2025 with spontaneous conversion
Chronic Coumadin therapy
Mitral valve repair w/ [place]-Fawad izabella-chords to A2 and 26mm annuloplasty ring 06/07/2018
Re-exploration with evacuation of pericardial fluid and modified Robicsek weave reclosure 06/16/18
s/p redo #29 [facility] mechanical mitral valve replacement 10/17/18
GERD/dysphagia, s/p esophageal dilatation 08/2018 at [facility]
Rate dependent LBBB
Hypertension
Hyperlipidemia
Anxiety/depression
h/o moderate alcohol use/abuse
ECHO 03/28/25: EF 35-40%, aortic sclerosis, trace AI, global LV hypokinesis, paradoxical septal motion, #29mm [facility] [facility] mech MVR with peak/mean gradients 8.4/2mmHg, trace MR, mild cLVH
Plan:
Stable cardiology status
Discussed with urology and they are reluctant to start heparin with high risk for bleeding
They will start Coumadin if hemoglobin is stable later today
Discussed with patient and family at bedside
Progress Note - Offbearer
Subjective
Date of Service: June 10, 2025
No complaints
Objective
Labs:
06/08/25 07:57
Labs
Hgb 8.6 g/dL (13.0-18.0) L 06/10/25 06:00
Hct 26.2 % (39.0-52.0) L 06/10/25 06:00
Plt Count 157 10^3/uL (130-400) D 06/10/25 06:00
PT 15.6 Sec (11.4-14.6) H 06/09/25 11:01
INR 1.26 06/09/25 11:01
Sodium 131 mmol/L (135-145) L 06/08/25 07:57
Potassium 4.4 mmol/L (3.5-5.1) 06/08/25 07:57
BUN 13 mg/dl (9-20) 06/08/25 07:57
Creatinine 0.9 mg/dL (0.7-1.3) 06/08/25 07:57
Glucose 142 mg/dl (70-99) H 06/08/25 07:57
Vital Signs and I&O:
Vital Signs
Temp Pulse Resp BP Pulse Ox
99.0 F 78 15 114/64 97
06/10/25 11:19 06/10/25 11:19 06/10/25 11:19 06/10/25 11:19 06/10/25 11:19
Vital Signs
Temp Pulse Resp BP Pulse Ox
99.0 F 78 15 114/64 97
06/10/25 11:19 06/10/25 11:19 06/10/25 11:19 06/10/25 11:19 06/10/25 11:19
Intake & Output
06/08/25 06/09/25 06/10/25 06/11/25
06:59 06:59 06:59 06:59
Intake Total 1200 / 1200 1502 / 1502 660 / 1400 740 / 740
Output Total 975 / 975 3400 / 3400 1270 / 1270
Balance 225 / 225 -1898 / -1898 -610 / 130 740 / 740
Physical Exam
Physical Exam
General: Well developed, well nourished in NAD.
Neck: Supple, no JVD, HJR, carotids +2 B/L, no bruits bilaterally.
Heart: Non displaced PMI, RRR, no murmurs, No S3, S4, no rubs.
Lungs: Scattered rhonchi
Extremities: No clubbing, cyanosis or edema bilaterally.
Neuro: Grossly nonfocal, awake, alert and oriented x3.
[2025-06-10 14:06] LABS: Hematocrit 27.0 % (39.0-52.0); Hemoglobin 9.0 g/dL (13.0-18.0)
--- NOTE | 2025-06-10 14:43 | CM ---
Chart reviewed. Case Management will continue to monitor for discharge needs
[2025-06-10] MEDS: COUMADIN 5 MG PO (17:34)
[2025-06-10] MEDS: LIPITOR 80 MG PO (17:35)
[2025-06-10] MEDS: MYLICON 80 MG PO (18:36)
[2025-06-10] MEDS: TYLENOL 650 MG PO (21:09)
[2025-06-11 03:00] VITALS: BP 118/74
[2025-06-11] MEDS: REFRESH EYE DROPS (PF) 1 DROPS OPHTH ×2 (03:27→15:53)
[2025-06-11] MEDS: PERCOCET 5/325 1 TABLET PO ×3 (03:30→17:55)
[2025-06-11 05:21] VITALS: BMI 26.3
[2025-06-11 07:10] VITALS: BP 127/63
[2025-06-11 07:35] LABS: Hematocrit 25.0 % (39.0-52.0); Hemoglobin 8.2 g/dL (13.0-18.0); Mean Corp Hgb Conc. 32.8 g/dL (33.0-37.0); Mean Corpuscular Volume 85.6 fL (80.0-94.0); Platelet Count 181 10^3/uL (130-400); Red Cell Dist. Width 13.2 % (11.5-14.5)
[2025-06-11 07:55] LABS: Blood Urea Nitrogen 11 mg/dl (9-20); Calcium 8.4 mg/dl (8.4-10.2); Carbon Dioxide 30 mmol/L (22-30); Chloride 100 mmol/L (98-107); Estimated Creatinine Clearance 78 ml/min; Glucose 99 mg/dl (70-99); Potassium 4.0 mmol/L (3.5-5.1); Sodium 133 mmol/L (135-145); eGFR > 60.00
[2025-06-11] MEDS: LASIX 40 MG PO (08:09)
[2025-06-11] MEDS: ASPIR LOW (ENTERIC COATED) 81 MG PO (08:09)
[2025-06-11] MEDS: COREG 6.25 MG PO ×2 (08:09→20:45)
[2025-06-11] MEDS: POLYSPORIN/DOUBLE ANTIBIOTIC 1 APPLIC TOPICAL (08:10)
[2025-06-11] MEDS: ZETIA 10 MG PO (08:10)
[2025-06-11] MEDS: MIRALAX 17 GRAMS PO (08:10)
[2025-06-11] MEDS: EMLA CREAM 5 GRAM TOPICAL ×2 (08:11→22:02)
[2025-06-11] MEDS: COLACE 100 MG PO ×3 (08:13→17:52)
--- NOTE | 2025-06-11 08:39 | W.PN.URO.CBU ---
Today's Communication / Plan
-
Recheck afternoon H&H
Further AC decisions to be made after next set of labs and pts clinical status
Continue regular diet, OOB
Assessment / Plan
-
Post op day 4 s/p radical perineal prostatectomy
post op bleed after resumption of anticoagulation
cardiology on board
on asa- lovenox and coumadin have been held
received 2 units prbc's 06/09 > Hgb stable to 9 and coumadin restarted 06/10 PM
Hgb now drifted to 8.2, otherwise clinically stable
Discussed with cardiology - they prefer he also be on lovenox or heparin in addition to coumadin when discharged home
Recheck afternoon H&H
Further AC decisions to be made after next set of labs and pts clinical status
Diagnosis
-
Date of Service: June 11, 2025
-
Patient Diagnosis:
Post Op Day:
Patient Diagnosis:
Prostate cancer
s/p RPP
---
History of ischemic cardiomyopathy with CABG ago
post op bleed
Subjective
-
Doing well this morning. Eating, passing flatus
Ambulated yesterday without dizziness.
Coumadin 5 mg qPM restarted last night - Hgb this morning drifted to 8.2 from 9. However no oozing from incisions, urine remains yellow and VSS
Objective
-
Vital Signs
Temp Pulse Resp BP Pulse Ox
99.1 F 78 16 127/63 97
06/11/25 07:10 06/11/25 07:10 06/11/25 07:10 06/11/25 07:10 06/11/25 07:10
Intake and Output
06/10/25 06/11/25 06/12/25
06:59 06:59 06:59
Intake Total 660 / 1400 1940 / 194
Output Total 1270 / 1270 1500 / 1500
Balance -610 / 130 440 / 440
Intake:
Oral fluids 660 / 900 1440 / 1440
Blood products 500 / 500
Blood Product Amount Infused ( 0 / 0
mL)
Packed Rbc Leukoreduced Unit 0 / 0
[id number]
Packed Rbc Leukoreduced Unit 0 / 0
[id number]
Output:
Urine, Amin 1270 / 1270 400 / 400
Urine, Voided 1100 / 1100
Laboratory Results
06/11/25 06:50
06/11/25 06:50
Physical Exam
-
General - well developed, well nourished, no acute distress
Chest - clear bilaterally
Abdomen - soft, non-tender, positive bowel sounds, no CVAT, no incisional pain or distention
Genitalia - normal, perineum bruising/ecchymosis stable, no saturation on gauze. Amin yellow urine
Skin - warm & dry with no rash
Neuro - AOx3, no motor deficits
Extremities - no clubbing, no cyanosis, no edema
Incision - clean, dry
Dressing - clean, dry, intact
[2025-06-11] MEDS: LEVAQUIN 100 IV (10:05)
[2025-06-11 11:30] VITALS: BP 120/59
--- NOTE | 2025-06-11 12:00 | W.PN.CARDCBS ---
Today's Communication / Plan
-
IV heparin if okay with urology
Continue Coumadin
Impression / Plan
-
Please refer to office note dated 05/23/25 to be used as H&P
Primary Technology Education Instructor: Dr. Aponte
Assessment:
Prostate cancer status post radical prostatectomy 06/07/2025
Acute postop anemia
CAD
NSTEMI 05/2018 with Stenting of OM2 with 3.0 x 38 mm Promus stent post dilated with 3.0 mm NC balloon
s/p CABG 06/07/2018, GIL to LAD and saphenous vein graft to PDA
Ischemic cardiomyopathy, EF 35-40%
Chronic HFrEF
Paroxysmal atrial fibrillation
- Status post PVI 08/2023
- On amiodarone prior to PVI
- recurrence 02/2025 with spontaneous conversion
Chronic Coumadin therapy
Mitral valve repair w/ [place]-Fawad izabella-chords to A2 and 26mm annuloplasty ring 06/07/2018
Re-exploration with evacuation of pericardial fluid and modified [place] weave reclosure 06/16/18
s/p redo #29 [facility] mechanical mitral valve replacement 10/17/18
GERD/dysphagia, s/p esophageal dilatation 08/2018 at [facility]
Rate dependent LBBB
Hypertension
Hyperlipidemia
Anxiety/depression
h/o moderate alcohol use/abuse
ECHO 03/28/25: EF 35-40%, aortic sclerosis, trace AI, global LV hypokinesis, paradoxical septal motion, #29mm [facility] [facility] mech MVR with peak/mean gradients 8.4/2mmHg, trace MR, mild cLVH
Plan:
Stable cardiology status
Discussed with urology and await decision whether patient would be a candidate for IV heparin to help prevent mechanical mitral valve thrombosis
Of note he has significant bleeding with Lovenox during this admission
Continue Coumadin
Progress Note - Technology Education Instructor
Subjective
Date of Service: June 11, 2025
No complaints
Objective
Labs:
06/11/25 14:00
06/11/25 06:50
Labs
Hgb Cancelled 06/11/25 14:00
Hct Cancelled 06/11/25 14:00
Plt Count 181 10^3/uL (130-400) 06/11/25 06:50
PT 15.6 Sec (11.4-14.6) H 06/09/25 11:01
INR 1.26 06/09/25 11:01
Sodium 133 mmol/L (135-145) L 06/11/25 06:50
Potassium 4.0 mmol/L (3.5-5.1) 06/11/25 06:50
BUN 11 mg/dl (9-20) 06/11/25 06:50
Creatinine 0.9 mg/dL (0.7-1.3) 06/11/25 06:50
Glucose 99 mg/dl (70-99) 06/11/25 06:50
Vital Signs and I&O:
Vital Signs
Temp Pulse Resp BP Pulse Ox
99.2 F 78 17 120/59 98
06/11/25 11:30 06/11/25 11:30 06/11/25 11:30 06/11/25 11:30 06/11/25 11:30
Vital Signs
Temp Pulse Resp BP Pulse Ox
99.2 F 78 17 120/59 98
06/11/25 11:30 06/11/25 11:30 06/11/25 11:30 06/11/25 11:30 06/11/25 11:30
Intake & Output
06/09/25 06/10/25 06/11/25 06/12/25
06:59 06:59 06:59 06:59
Intake Total 1502 / 1502 660 / 1400 1940 / 1940 550 / 550
Output Total 3400 / 3400 1270 / 1270 1500 / 1500
Balance -1898 / -1898 -610 / 130 440 / 440 550 / 550
Physical Exam
Physical Exam
General: Well developed, well nourished in NAD.
Neck: Supple, no JVD, HJR, carotids +2 B/L, no bruits bilaterally.
Heart: Non displaced PMI, RRR, no murmurs, No S3, S4, no rubs.
Lungs: Scattered rhonchi
Extremities: No clubbing, cyanosis or edema bilaterally.
Neuro: Grossly nonfocal, awake, alert and oriented x3.
[2025-06-11 12:50] LABS: Hematocrit 28.5 % (39.0-52.0); Hemoglobin 9.6 g/dL (13.0-18.0)
[2025-06-11 15:25] VITALS: BP 134/66
[2025-06-11] MEDS: MYLICON 80 MG PO ×2 (15:49→20:45)
[2025-06-11] MEDS: COUMADIN 5 MG PO (17:52)
[2025-06-11] MEDS: LIPITOR 80 MG PO (17:53)
[2025-06-11 18:59] LABS: APTT 37.5 Sec (23.4-35.0)
[2025-06-11 19:15] VITALS: BP 109/68
[2025-06-11] MEDS: HEPARIN 25000 UNITS/250 ML IV (19:40)
[2025-06-11 20:00] VITALS: BMI 26.3
[2025-06-11] MEDS: REFRESH CELLUVISC GEL 1 DROPS OPHTH (20:44)
[2025-06-11] MEDS: MORPHINE SULFATE 4 MG IV (20:46)
[2025-06-11] MEDS: DESYREL 50 MG PO (22:02)
[2025-06-11 23:06] VITALS: BP 104/59
[2025-06-12] MEDS: PERCOCET 5/325 1 TABLET PO ×5 (01:13→21:59)
[2025-06-12 01:46] LABS: APTT 41.0 Sec (23.4-35.0)
[2025-06-12 03:13] VITALS: BP 105/57
[2025-06-12 06:00] VITALS: BMI 26.3
[2025-06-12 07:59] LABS: INR 1.27; PT 16.1 Sec (11.4-14.6)
[2025-06-12 08:04] VITALS: BP 105/63
[2025-06-12] MEDS: COREG 6.25 MG PO ×2 (08:06→20:49)
[2025-06-12] MEDS: ASPIR LOW (ENTERIC COATED) 81 MG PO (08:06)
[2025-06-12] MEDS: LASIX 40 MG PO (08:06)
[2025-06-12] MEDS: MIRALAX 17 GRAMS PO (08:06)
[2025-06-12] MEDS: ZETIA 10 MG PO (08:06)
[2025-06-12] MEDS: COLACE 100 MG PO ×3 (08:06→17:27)
[2025-06-12] MEDS: EMLA CREAM 5 GRAM TOPICAL ×2 (08:07→20:49)
[2025-06-12 09:34] LABS: APTT 58.3 Sec (23.4-35.0)
[2025-06-12 09:38] LABS: Hematocrit 27.1 % (39.0-52.0); Hemoglobin 9.1 g/dL (13.0-18.0); Mean Corp Hgb Conc. 33.6 g/dL (33.0-37.0); Mean Corpuscular Volume 86.0 fL (80.0-94.0); Platelet Count 232 10^3/uL (130-400); Red Cell Dist. Width 13.3 % (11.5-14.5)
[2025-06-12 09:52] LABS: Blood Urea Nitrogen 11 mg/dl (9-20); Calcium 8.9 mg/dl (8.4-10.2); Carbon Dioxide 29 mmol/L (22-30); Chloride 98 mmol/L (98-107); Estimated Creatinine Clearance 70 ml/min; Glucose 145 mg/dl (70-99); Potassium 4.3 mmol/L (3.5-5.1); Sodium 132 mmol/L (135-145); eGFR > 60.00
--- NOTE | 2025-06-12 10:09 | W.PN.URO.CBU ---
Today's Communication / Plan
-
Add senna for bowel regimen. No enemas
Continue coumadin and hep gtt for now, no evidence of active bleeding post-op
Follow up cardiology plans for AC, trend PTT
Assessment / Plan
-
Post op day 5 s/p radical perineal prostatectomy
Post op bleed after resumption of anticoagulation > AC held
Cardiology on board
Received 2 units prbc's 06/09 > Hgb stable to 9 and coumadin restarted 06/10 PM
Hep gtt started 06/11 PM --> Hgb stable 9.6 to 9.1 this AM
Diagnosis
-
Date of Service: June 12, 2025
-
Patient Diagnosis:
Post Op Day:
Patient Diagnosis:
Post Op Day:
Patient Diagnosis:
Prostate cancer
s/p RPP
---
History of ischemic cardiomyopathy with CABG ago
post op bleed
Subjective
-
No issues overnight. Hep gtt started overnight per cardiology request
Patient doing well this morning - pain is overall controlled, has not had BM since Friday despite miralax, colace, prune juice
No dizziness/light-headedness. No oozing from incisions. Vitals stable and UOP > Hgb 9.1 this AM from 9.6
Objective
-
Vital Signs
Temp Pulse Resp BP Pulse Ox
99.8 F 79 16 105/63 97
06/12/25 08:04 06/12/25 08:04 06/12/25 08:04 06/12/25 08:04 06/12/25 08:04
Intake and Output
06/11/25 06/12/25 06/13/25
06:59 06:59 06:59
Intake Total 1940 / 1940 1750 / 175
Output Total 1500 / 1500 1350 / 1350
Balance 440 / 440 400 / 400
Intake:
Oral fluids 1440 / 1440 1650 / 1650
IV piggybacks 100 / 100
Blood products 500 / 500
Output:
Urine, Vega 400 / 400 1350 / 1350
Urine, Voided 1100 / 1100
Laboratory Results
06/12/25 09:02
06/12/25 09:02
Physical Exam
-
General - well developed, well nourished, no acute distress
Chest - clear bilaterally
Abdomen - soft, non-tender, positive bowel sounds, no CVAT, no incisional pain or distention
Genitalia - normal, vega yellow, perineal incision clean/dry - no oozing, bruising/ecchymosis is improving, gauze dry
Skin - warm & dry with no rash
Neuro - AOx3, no motor deficits
Extremities - no clubbing, no cyanosis, no edema
Incision - clean, dry
Dressing - clean, dry, intact
[2025-06-12 11:20] VITALS: BP 109/59
[2025-06-12] MEDS: MYLICON 80 MG PO (13:01)
[2025-06-12 15:05] VITALS: BP 103/56
[2025-06-12 16:07] LABS: Hematocrit 27.6 % (39.0-52.0); Hemoglobin 9.2 g/dL (13.0-18.0)
[2025-06-12 16:22] LABS: APTT 81.3 Sec (23.4-35.0)
[2025-06-12] MEDS: LIPITOR 80 MG PO (17:27)
[2025-06-12] MEDS: COUMADIN 5 MG PO (18:31)
[2025-06-12] MEDS: HEPARIN 25000 UNITS/250 ML IV (18:31)
[2025-06-12 19:30] VITALS: BP 103/59
[2025-06-12] MEDS: SENOKOT 8.6 MG PO (21:59)
[2025-06-12 22:24] LABS: APTT 116.2 Sec (23.4-35.0)
[2025-06-12 23:00] VITALS: BP 102/58
[2025-06-13 03:30] VITALS: BP 107/54
[2025-06-13 04:42] LABS: APTT 146.2 Sec (23.4-35.0)
[2025-06-13 05:15] VITALS: BMI 26.1
[2025-06-13] MEDS: PERCOCET 5/325 1 TABLET PO ×2 (05:42→13:00)
[2025-06-13] MEDS: COLACE 100 MG PO ×2 (06:35→11:29)
[2025-06-13 07:05] VITALS: BP 95/64
[2025-06-13] MEDS: ASPIR LOW (ENTERIC COATED) 81 MG PO (08:26)
[2025-06-13] MEDS: EMLA CREAM 5 GRAM TOPICAL (08:27)
[2025-06-13] MEDS: ZETIA 10 MG PO (08:27)
[2025-06-13] MEDS: MIRALAX 17 GRAMS PO (08:27)
--- NOTE | 2025-06-13 08:31 | W.PN.CARDCBS ---
Today's Communication / Plan
-
Okay for discharge today from cardiac standpoint
Warfarin 10 mg now, again 06/14/2025, we will check INR on
See below for full recommendations regarding cardiac meds
Impression / Plan
-
Please refer to office note dated 05/23/25 to be used as H&P
Primary Coating Mixer Tender: Dr. Aponte
Assessment:
Prostate cancer status post radical prostatectomy 06/07/2025
Acute postop anemia
CAD
NSTEMI 05/2018 with Stenting of OM2 with 3.0 x 38 mm Promus stent post dilated with 3.0 mm NC balloon
s/p CABG 06/07/2018, GIL to LAD and saphenous vein graft to PDA
Ischemic cardiomyopathy, EF 35-40%
Chronic HFrEF
Paroxysmal atrial fibrillation
- Status post PVI 08/2023
- On amiodarone prior to PVI
- recurrence 02/2025 with spontaneous conversion
Chronic Coumadin therapy
Mitral valve repair w/ Success-Fawad izabella-chords to A2 and 26mm annuloplasty ring 06/07/2018
Re-exploration with evacuation of pericardial fluid and modified Robicsek weave reclosure 06/16/18
s/p redo #[id number] [facility] mechanical mitral valve replacement 10/17/18
GERD/dysphagia, s/p esophageal dilatation 08/2018 at [facility]
Rate dependent LBBB
Hypertension
Hyperlipidemia
Anxiety/depression
h/o moderate alcohol use/abuse
ECHO 03/28/25: EF 35-40%, aortic sclerosis, trace AI, global LV hypokinesis, paradoxical septal motion, #29mm [facility] mech MVR with peak/mean gradients 8.4/2mmHg, trace MR, mild cLVH
Plan:
Stable cardiology status
He is now on heparin and receiving 5 mg of warfarin daily. His outpatient dose is 6.5 mg.
INR is 1.35, slowly creeping upward
We will give warfarin 10 mg now.
From my standpoint okay to discharge today without a Lovenox bridge.
He will take warfarin 10 mg again tomorrow, please document in discharge instructions
We will check INR on Friday.
Recommended cardiac meds at discharge:
No warfarin tonight, 10 mg 06/14/2025 with INR on 06/15/2025
Aspirin 81 mg-hold for 7 days, then restart
Atorvastatin 80 mg a day
Ezetimibe 10 mg a day
Furosemide 40 mg a day
Please check BMP in 1 week
Progress Note - Coating Mixer Tender
Subjective
Date of Service: June 13, 2025:
75-year-old man who underwent prostatectomy earlier this admission.
PMH/PSH: Ischemic cardiomyopathy, chronic HFrEF, paroxysmal atrial fibrillation, PVI 2023, mechanical mitral valve, GERD, left bundle branch block, hypertension, hyperlipidemia, anxiety, and CABG
Current meds: Carvedilol 6.25 mg twice daily, aspirin 81 mg a day, atorvastatin 80 mg a day, ezetimibe 10 mg a day, furosemide 40 mg a daily, MiraLAX, warfarin 5 mg a day, heparin
95/64, pulse 78 respiratory rate 16, afebrile, weight is 87.3 kg, stable, no distress lungs are clear, prosthetic first heart sound abdomen benign urine is clear no edema
Current labs: Reviewed, Sodium is 131, hemoglobin is 8.8, had been 9.2
Hemoglobin 9.2 June 12
Sodium 132, potassium 4.3, BUN/creatinine 11 and 1.0
INR: 1.27 on June 12, 1.35 today
Objective
Labs:
Labs
Hgb 9.2 g/dL (13.0-18.0) L 06/12/25 15:52
Hct 27.6 % (39.0-52.0) L 06/12/25 15:52
Plt Count 232 10^3/uL (130-400) D 06/12/25 09:02
PT 16.1 Sec (11.4-14.6) H 06/12/25 01:25
INR 1.27 06/12/25 01:25
APTT 146.2 Sec (23.4-35.0) H 06/13/25 04:22
Sodium 132 mmol/L (135-145) L 06/12/25 09:02
Potassium 4.3 mmol/L (3.5-5.1) 06/12/25 09:02
BUN 11 mg/dl (9-20) 06/12/25 09:02
Creatinine 1.0 mg/dL (0.7-1.3) 06/12/25 09:02
Glucose 145 mg/dl (70-99) H 06/12/25 09:02
Vital Signs and I&O:
Vital Signs
Temp Pulse Resp BP Pulse Ox
36.9 C 78 16 95/64 96
06/13/25 07:05 06/13/25 07:05 06/13/25 07:05 06/13/25 07:05 06/13/25 07:05
Vital Signs
Temp Pulse Resp BP Pulse Ox
36.9 C 78 16 95/64 96
06/13/25 07:05 06/13/25 07:05 06/13/25 07:05 06/13/25 07:05 06/13/25 07:05
Intake & Output
06/11/25 06/12/25 06/13/25 06/14/25
07:59 07:59 07:59 07:59
Intake Total 1200 / 1200 1750 / 1750 1814 / 1814
Output Total 1500 / 1500 1350 / 1350 1290 / 1290
Balance -300 / -300 400 / 400 524 / 524
Physical Exam
Physical Exam
See above
[2025-06-13] MEDS: LASIX 40 MG PO (08:33)
[2025-06-13] MEDS: COREG 6.25 MG PO (08:33)
--- NOTE | 2025-06-13 09:07 | CM ---
Chart reviewed and patient is for discharge today with [facility].
Plan; Home with [facility].
--- NOTE | 2025-06-13 09:24 | W.PN.URO.CBU ---
Today's Communication / Plan
-
Will add MOM to medical regimen of bowel cathartics
Anticipate discharge home later today
Assessment / Plan
-
Post op day 6 s/p radical perineal prostatectomy
Post op bleed after resumption of anticoagulation > AC held
Cardiology on board
Received 2 units prbc's 06/09 > Hgb stable to 9 and coumadin restarted 06/10 PM
Hep gtt started 06/11 PM --> Hgb stable 9.6 to 9.1 this AM
Diagnosis
-
Date of Service: June 13, 2025
-
Patient Diagnosis:
Prostate cancer
s/p RPP
---
History of ischemic cardiomyopathy with CABG ago
post op bleed: acute blood loss anemia secondary to anticoagulation
Subjective
-
Comfortable
Passing flatus
No BM
Objective
-
Vital Signs
Temp Pulse Resp BP Pulse Ox
98.5 F 86 16 116/69 96
06/13/25 07:05 06/13/25 08:33 06/13/25 07:05 06/13/25 08:33 06/13/25 07:05
Intake and Output
06/12/25 06/13/25 06/14/25
06:59 06:59 06:59
Intake Total 1750 / 1750 1420 / 1814 394 / 394
Output Total 1350 / 1350 1290 / 1290
Balance 400 / 400 130 / 524 394 / 394
Intake:
Oral fluids 1650 / 1650 1256 / 1496 240 / 240
IV fluids (Total) 164 / 318 154 / 154
IV piggybacks 100 / 100
Output:
Urine, Amin 1350 / 1350 1290 / 1290
Review of Systems
-
Constitutional: No Symptoms
Respiratory: No Symptoms
Cardiac: No Symptoms
Abdomen/GI: No Symptoms
Neurological: No Symptoms
Physical Exam
-
General - well developed, well nourished, no acute distress
Abdomen - soft, non-tender, positive bowel sounds, no CVAT, incision with negligible drainage
Genitalia - Amin draining zoe urine
Skin - warm & dry with no rash
[2025-06-13] MEDS: MILK OF MAGNESIA 30 ML PO (09:50)
[2025-06-13 10:42] LABS: Hematocrit 26.9 % (39.0-52.0); Hemoglobin 8.8 g/dL (13.0-18.0); Mean Corp Hgb Conc. 32.7 g/dL (33.0-37.0); Mean Corpuscular Volume 86.2 fL (80.0-94.0); Nucleated Red Blood Cells % 0 % (-); Platelet Count 262 10^3/uL (130-400); Red Cell Dist. Width 13.3 % (11.5-14.5)
[2025-06-13 10:51] LABS: INR 1.35; PT 16.8 Sec (11.4-14.6)
[2025-06-13 10:56] LABS: Blood Urea Nitrogen 12 mg/dl (9-20); Calcium 8.4 mg/dl (8.4-10.2); Carbon Dioxide 31 mmol/L (22-30); Chloride 98 mmol/L (98-107); Estimated Creatinine Clearance 78 ml/min; Glucose 140 mg/dl (70-99); Potassium 4.3 mmol/L (3.5-5.1); Sodium 131 mmol/L (135-145); eGFR > 60.00
[2025-06-13 11:10] VITALS: BP 100/68
[2025-06-13 12:40] LABS: APTT 66.7 Sec (23.4-35.0)
--- NOTE | 2025-06-13 14:57 | W.DS.TRANS ---
DC Summary - Aprn
-
Discharge Instructions:
Sleep Apnea Risk Low
Discharge Diagnosis/Procedures Prostate cancer
Diet No restrictions
Activity No strenuous activity
Additional Activity for 2 weeks
Driving Restrictions No driving for 2 weeks
Bathing Restrictions Shower off after each bowel movement next 5 days
Other Services VN
Wound Care VN to remove Amin catheter around 10 am Friday
06/21/25
Instructions:
Stand-Alone Forms:
Changes to Home Medications: No
Discharge Medications:
DC Medications w/original date entered in [facility]
aspirin 81 mg tablet,delayed release 81 mg PO DAILY 06/24/18
atorvastatin 80 mg tablet (Lipitor) 80 mg PO QPM High Cholesterol 07/28/23
furosemide 40 mg tablet (Lasix) 40 mg PO DAILY #30 tabs 07/30/23
ezetimibe 10 mg tablet 10 mg PO DAILY High Cholesterol 09/08/23
sildenafil 100 mg tablet 100 mg PO DAILY PRN ED 09/08/23
acetaminophen 500 mg tablet 1,000 mg PO Q6H PRN arthritis pain 03/27/25
trazodone 50 mg tablet 50 mg PO HS Mental Health/Anxiety 03/27/25
warfarin 1 mg tablet 1.5 mg PO QPM Blood Clot Prevention/Tx 03/27/25
warfarin 5 mg tablet 5 mg PO QPM Blood Clot Prevention/Tx 03/27/25
carvedilol 6.25 mg tablet 6.25 mg PO BID 06/02/25
enoxaparin 80 mg/0.8 mL subcutaneous syringe (Lovenox) 80 mg SC Q12H 06/02/25
Home Medication Changes
Pending Results: No
[2025-06-13 15:05] VITALS: BP 119/73
[2025-06-13] MEDS: MYLICON 80 MG PO (15:35)
== END 2025-06-13 16:41 | disposition home health service (06) | DRG 707 ==
LOC: 2 SOUTH 08:40
PROVIDERS: Internal Medicine Cardiovascular Disease; Specialist; Student in an Organized Health Care Education/Training Program; ADMITTING PHYSICIAN Specialist; FAMILY PHYSICIAN Family Medicine
PROC: 0TBC0ZX Excision of Bladder Neck, Open Approach, Diagnostic (ICD-10-PCS; 2025-06-07)
PROC: 0VT00ZZ Resection of Prostate, Open Approach (ICD-10-PCS; 2025-06-07)
PROC: 0TQC0ZZ Repair Bladder Neck, Open Approach (ICD-10-PCS; 2025-06-07)
PROC: 0VT30ZZ Resection of Bilateral Seminal Vesicles, Open Approach (ICD-10-PCS; 2025-06-07)
PROC: 0VTQ0ZZ Resection of Bilateral Vas Deferens, Open Approach (ICD-10-PCS; 2025-06-07)
PROC: 30233N1 Transfusion of Nonautologous Red Blood Cells into Peripheral Vein, Percutaneous Approach (ICD-10-PCS; 2025-06-09)
DX: C61 Malignant neoplasm of prostate (principal); D62 Acute posthemorrhagic anemia; I50.22 Chronic systolic (congestive) heart failure; D68.32 Hemorrhagic disorder due to extrinsic circulating anticoagulants; I25.5 Ischemic cardiomyopathy; I25.10 Atherosclerotic heart disease of native coronary artery without angina pectoris; I48.0 Paroxysmal atrial fibrillation; I11.0 Hypertensive heart disease with heart failure; I44.7 Left bundle-branch block, unspecified; K21.9 Gastro-esophageal reflux disease without esophagitis; E78.5 Hyperlipidemia, unspecified; F41.9 Anxiety disorder, unspecified; F32.A Depression, unspecified; F10.10 Alcohol abuse, uncomplicated; T45.515A Adverse effect of anticoagulants, initial encounter; Y92.239 Unspecified place in hospital as the place of occurrence of the external cause; I25.2 Old myocardial infarction; Z95.2 Presence of prosthetic heart valve; Z95.1 Presence of aortocoronary bypass graft; Z79.01 Long term (current) use of anticoagulants
CPT/HCPCS: 36415; 80048; 85014; 85018; 85025; 85027; 85610; 85730; 86850; 86900; 86901; 86920; 88305; 88331; A4648; P9016

== ENCOUNTER 2025-06-16 23:31 | Inpatient (IN) | payer MEDICARE, OTHER, SELFPAY ==
[2025-06-16 16:50] VITALS: BP 135/83
[2025-06-16 17:15] LABS: Hematocrit 33.0 % (39.0-52.0); Hemoglobin 11.0 g/dL (13.0-18.0); Mean Corp Hgb Conc. 33.3 g/dL (33.0-37.0); Mean Corpuscular Volume 88.5 fL (80.0-94.0); Nucleated Red Blood Cells % 0 % (-); Platelet Count 536 10^3/uL (130-400); Red Cell Dist. Width 13.9 % (11.5-14.5)
[2025-06-16 17:36] LABS: ALT (SGPT) 41 U/L (0-50); AST (SGOT) 31 U/L (17-59); Albumin 3.8 g/dl (3.5-5.0); Alkaline Phosphatase 191 U/L (38-126); Blood Urea Nitrogen 19 mg/dl (9-20); Calcium 9.2 mg/dl (8.4-10.2); Carbon Dioxide 28 mmol/L (22-30); Chloride 95 mmol/L (98-107); Glucose 132 mg/dl (70-99); Lipase 139 U/L (23-300); Potassium 4.2 mmol/L (3.5-5.1); Sodium 131 mmol/L (135-145); Total Protein 6.6 g/dl (6.3-8.2); eGFR > 60.00
[2025-06-16 20:07] VITALS: BP 150/83; BMI 24.2
[2025-06-16] MEDS: SUBLIMAZE 50 MCG IV (20:34)
--- NOTE | 2025-06-16 20:34 | ED.GENMED ---
History of Present Illness
<Mikaela Diaz PA-C - Last Filed: 06/16/25 23:05>
General
Chief Complaint: Bowel Problem
Time Seen by Provider: 06/16/25 19:05
History of Present Illness
History of Present Illness:
Ralf is a 75-year-old male with extensive past medical history including recent prostatectomy for prostate cancer, mechanical heart valve on Coumadin, left bundle branch block and hypertension who presents for complaint of ongoing bleeding from
his buttocks incision, constipation, and hematuria in his Amin catheter. Was sent in by his after multiple laxatives did not yield any results. Reports abdominal pain that has been worsening over the last several days with intermittent nausea.
Low-grade fevers this morning.
Past History
<Mikaela Diaz PA-C - Last Filed: 06/16/25 23:05>
Past History
ED Past Medical History: Arrthythmia (Atrial fibrillation), CAD, CHF, Psychiatric (Anxiety/depression) and Other (Pneumonia, left bundle branch block, anemia, mitral valve replacement)
Social History
Tobacco: Non-smoker
Alcohol: None
Drug: None
Personal:
Living: with family
Phy Exam
<Mikaela Diaz PA-C - Last Filed: 06/16/25 23:05>
General Physical Exam
General Presentation: well appearing and no apparent distress
General Skin: warm and dry
General Habitus: normal
General Mental: alert
General Hydration: appears well hydrated
ENT Exam
ENT Exam: EOMI, pharynx normal, neck supple and normocephalic
Eye Exam
Eye Exam: PERRL, cornea clear and conjunctiva normal
Cardiovascular Exam
Cardiovascular Exam: regular rate/rhythm, no edema, no murmur and normal peripheral pulses
Pulmonary Exam
Pulmonary Exam: lungs clear, no respiratory distress, no rales, no crackles, no rhonchi, no stridor, no wheezing and no cough
Gastrointestinal Exam
Gastrointestinal Exam: normal bowel sounds, non tender, soft, no organomegaly, no pulsatile mass and non distended
Rectal Exam: other (Surgical incision with venous oozing and sutures in place. Indurated and purple area surrounding surgical incision)
Neurological Exam
Neurological Exam: alert, oriented x3, no motor deficits and speech normal
Musculoskeletal Exam
Musculoskeletal Exam: full ROM and no edema
Skin Exam
Skin Exam: normal color, warm/dry, no rash and no petechia
Psychiatric Exam
Psychiatric Exam: normal mood/affect
Course
<Mikaela Diaz PA-C - Last Filed: 06/16/25 23:05>
Orders/Labs/Results
Orders:
Orders
06/16/25 17:04
Complete Blood Count/With Diff Urgent
Comprehensive Metabolic Panel Urgent
Lipase Urgent
06/16/25 19:31
CT Abd/pelvis W Iv Cont Urgent
Comment:
Reason For Exam: recent prostatectomy, abd pain, fevers
06/16/25 20:14
Urinalysis Reflex To Culture Urgent
Date Specimen was Collected: 06/16/25
Time Specimen was Collected: 16:56
Comment: Amin Catheter
Urine Microscopic Reflex Cult Urgent
Urine Culture Urgent
ERIKA Source: U
Specimen Description:
Date Specimen was Collected: 06/16/25
Time Specimen was Collected: 16:56
06/16/25 20:26
Fentanyl Citrate/Pf [Sublimaze] 50 mcg IV NOW STA
06/16/25 22:53
CefTRIAXone [Rocephin] 1,000 mg IV NOW STA
HYDROmorphone [Dilaudid] 0.5 mg IV NOW STA
06/16/25 23:27
0.9% Sodium Chloride 1000 ml [Nss] 1,000 ml IV BOLUS
06/16/25 23:30
0.9% Sodium Chloride 500 ml [Nss] 500 ml IV BOLUS
Ampicillin/Sulbactam 3 G [Unasyn] 3 gm 0.9% Sodium Chloride 100 ml [Nss] 100 ml IV ONCE
06/16/25 23:31
Admit/Transfer Patient As Directed
Co-Sign Provider:
Level of Care: Inpatient admission
Assign to:: Medical/Surgical
Physician / Group: Lindsay Castaneda
Diagnosis: post op complication, constipation, hematuria
Reason for Hospitalization: post op complication, constipation, hematuria
Expected length of stay greater than two midnights?: Yes
ELOS- Estimated Length of Stay in days: 3
I certify the patient meets the requirements for IP care: Yes
PRN Pain Medication Management As Directed
May give lesser potent ordered pain med per pt: Yes
preference::
Protocol:: Medication orders for pain may be administered in a
manner that supports deferring to patient preference
when the pt is:
- Requesting an ordered lesser potent pain medication.
Least to most potent pain medications are defined
as: acetaminophen < NSAID < tramadol < opioids
(morphine, oxycodone, hydromorphone).
- Requesting a lesser dose of the same medication IF
ORDERED.
- Requesting a less intrusive route of administration
if both routes are prescribed by the provider (PO <
IV).
06/16/25 23:33
Code Status As Directed
Resuscitation Status: Full Code
06/16/25 23:35
INR [Prothrombin Time] Urgent
06/16/25 23:45
Ampicillin/Sulbactam 3 G [Unasyn] 3 gm 0.9% Sodium Chloride 100 ml [Nss] 100 ml IV Q6H
06/17/25 05:00
Ampicillin/Sulbactam 3 G [Unasyn] 3 gm 0.9% Sodium Chloride 100 ml [Nss] 100 ml IV Q6H
Abnormal Lab Results
06/16/25 06/16/25
17:04 20:14
WBC 16.6 H 10^3/uL
(4.8-10.8)
RBC 3.73 L 10^6/uL
(4.70-6.10)
Hgb 11.0 L D g/dL
(13.0-18.0)
Hct 33.0 L %
(39.0-52.0)
Plt Count 536 H D 10^3/uL
(130-400)
Abs Immat Gran (auto) 0.1 H 10^3/uL
(0-0.05)
Absolute Neuts (auto) 13.6 H 10^3/uL
(1.4-6.5)
Absolute Monos (auto) 1.6 H 10^3/uL
(0.1-0.6)
Immature Gran % 0.7 H %
(0-0.5)
Neutrophils % 81.9 H %
(42.2-75.2)
Lymphocytes % 7.1 L %
(20.5-51.1)
Monocytes % 9.8 H %
(1.7-9.3)
Sodium 131 L mmol/L
(135-145)
Chloride 95 L mmol/L
(98-107)
Glucose 132 H mg/dl
(70-99)
Alkaline Phosphatase 191 H U/L
(38-126)
Urine Ketones 3+ A
(Negative)
Ur Occult Blood Reflex 4+ A
(Negative)
Leukocyte Esterase Rfl 2+ A
(Negative)
Urine RBC >100 A /HPF
(0-2)
Urine Bacteria (Reflex) Moderate A
(Negative)
Urine Albumin (Reflex) 4+ A
(Neg - Trace)
06/16/25 17:04
06/16/25 17:04
Vital Signs
Initial and Last Documented VS:
Initial Vital Signs
Temp Pulse Resp BP Pulse Ox
97.7 F 100 21 135/83 99
06/16/25 16:50 06/16/25 16:50 06/16/25 16:50 06/16/25 16:50 06/16/25 16:50
Last Documented Vital Signs
Temp Pulse Resp BP Pulse Ox
97.7 F 96 20 109/64 99
06/16/25 16:50 06/16/25 23:26 06/16/25 23:26 06/16/25 23:26 06/16/25 23:26
<Guy Alaniz, DO - Last Filed: 06/16/25 23:46>
Orders/Labs/Results
Orders:
Orders
06/16/25 17:04
Complete Blood Count/With Diff Urgent
Comprehensive Metabolic Panel Urgent
Lipase Urgent
06/16/25 19:31
CT Abd/pelvis W Iv Cont Urgent
Comment:
Reason For Exam: recent prostatectomy, abd pain, fevers
06/16/25 20:14
Urinalysis Reflex To Culture Urgent
Date Specimen was Collected: 06/16/25
Time Specimen was Collected: 16:56
Comment: Amin Catheter
Urine Microscopic Reflex Cult Urgent
Urine Culture Urgent
ERIKA Source: U
Specimen Description:
Date Specimen was Collected: 06/16/25
Time Specimen was Collected: 16:56
06/16/25 20:26
Fentanyl Citrate/Pf [Sublimaze] 50 mcg IV NOW STA
06/16/25 22:53
CefTRIAXone [Rocephin] 1,000 mg IV NOW STA
HYDROmorphone [Dilaudid] 0.5 mg IV NOW STA
06/16/25 23:27
0.9% Sodium Chloride 1000 ml [Nss] 1,000 ml IV BOLUS
06/16/25 23:30
0.9% Sodium Chloride 500 ml [Nss] 500 ml IV BOLUS
Ampicillin/Sulbactam 3 G [Unasyn] 3 gm 0.9% Sodium Chloride 100 ml [Nss] 100 ml IV ONCE
06/16/25 23:31
Admit/Transfer Patient As Directed
Co-Sign Provider:
Level of Care: Inpatient admission
Assign to:: Medical/Surgical
Physician / Group: Lindsay Castaneda
Diagnosis: post op complication, constipation, hematuria
Reason for Hospitalization: post op complication, constipation, hematuria
Expected length of stay greater than two midnights?: Yes
ELOS- Estimated Length of Stay in days: 3
I certify the patient meets the requirements for IP care: Yes
PRN Pain Medication Management As Directed
May give lesser potent ordered pain med per pt: Yes
preference::
Protocol:: Medication orders for pain may be administered in a
manner that supports deferring to patient preference
when the pt is:
- Requesting an ordered lesser potent pain medication.
Least to most potent pain medications are defined
as: acetaminophen < NSAID < tramadol < opioids
(morphine, oxycodone, hydromorphone).
- Requesting a lesser dose of the same medication IF
ORDERED.
- Requesting a less intrusive route of administration
if both routes are prescribed by the provider (PO <
IV).
06/16/25 23:33
Code Status As Directed
Resuscitation Status: Full Code
06/16/25 23:35
INR [Prothrombin Time] Urgent
06/16/25 23:45
Ampicillin/Sulbactam 3 G [Unasyn] 3 gm 0.9% Sodium Chloride 100 ml [Nss] 100 ml IV Q6H
06/17/25 05:00
Ampicillin/Sulbactam 3 G [Unasyn] 3 gm 0.9% Sodium Chloride 100 ml [Nss] 100 ml IV Q6H
Abnormal Lab Results
06/16/25 06/16/25
17:04 20:14
WBC 16.6 H 10^3/uL
(4.8-10.8)
RBC 3.73 L 10^6/uL
(4.70-6.10)
Hgb 11.0 L D g/dL
(13.0-18.0)
Hct 33.0 L %
(39.0-52.0)
Plt Count 536 H D 10^3/uL
(130-400)
Abs Immat Gran (auto) 0.1 H 10^3/uL
(0-0.05)
Absolute Neuts (auto) 13.6 H 10^3/uL
(1.4-6.5)
Absolute Monos (auto) 1.6 H 10^3/uL
(0.1-0.6)
Immature Gran % 0.7 H %
(0-0.5)
Neutrophils % 81.9 H %
(42.2-75.2)
Lymphocytes % 7.1 L %
(20.5-51.1)
Monocytes % 9.8 H %
(1.7-9.3)
Sodium 131 L mmol/L
(135-145)
Chloride 95 L mmol/L
(98-107)
Glucose 132 H mg/dl
(70-99)
Alkaline Phosphatase 191 H U/L
(38-126)
Urine Ketones 3+ A
(Negative)
Ur Occult Blood Reflex 4+ A
(Negative)
Leukocyte Esterase Rfl 2+ A
(Negative)
Urine RBC >100 A /HPF
(0-2)
Urine Bacteria (Reflex) Moderate A
(Negative)
Urine Albumin (Reflex) 4+ A
(Neg - Trace)
06/16/25 17:04
06/16/25 17:04
Vital Signs
Initial and Last Documented VS:
Initial Vital Signs
Temp Pulse Resp BP Pulse Ox
97.7 F 100 21 135/83 99
06/16/25 16:50 06/16/25 16:50 06/16/25 16:50 06/16/25 16:50 06/16/25 16:50
Last Documented Vital Signs
Temp Pulse Resp BP Pulse Ox
97.7 F 96 20 109/64 99
06/16/25 16:50 06/16/25 23:26 06/16/25 23:26 06/16/25 23:26 06/16/25 23:26
<Mikaela Diaz PA-C - Last Filed: 06/16/25 23:05>
MDM/Problems Addressed
Differential Diagnosis Includes:
CBC obtained and shows leukocytosis of 16. Patient is afebrile here but does report a low-grade temperature this morning. Ongoing oozing from his surgical site. Has had constipation since the surgery with only a small bowel movement since
discharge. He has tried [id number] laxatives without any success. Discussed manual disimpaction with the patient but he states that his urologist told him that no one should 'put a finger in there'.
CT scan obtained and shows 6.7 x 5.8 x 7.9 cm heterogeneous and overall mildly hyperdense opacity which may represent a postoperative hematoma, however superimposed infection cannot be excluded. Discussed this with urology who states that he can be
discharged on Keflex with an aggressive bowel regimen. Updated the patient with results and urology plan however he favors admission as his pain is not currently controlled despite receiving IV medications. He is unsure how he will manage his pain
at home and is unable to sheepskin pickler any medications tonight given the time. Discussed this with urology who feel that this is an acceptable plan. Patient will be admitted to the service. Urology has requested that patient receive ceftriaxone tonight
<Mikaela Diaz PA-C - Last Filed: 06/16/25 23:05>
*Pulse Oximetry
SaO2: 99
Oxygen Mode of Delivery: Room air
Patient hypoxic: no
*Critical Care Note
Total Time (30-74mins, 75-104mins- exclusive of procedures): Not Applicable
ED Attending Note
<Mikaela Diaz PA-C - Last Filed: 06/16/25 23:05>
-
Portions of this chart may have been created with voice recognition software.� Occasional wrong word or��sound alike� substitutions may have occurred due to the inherent limitations of voice recognition software.
<Guy Alaniz DO - Last Filed: 06/16/25 23:46>
ED Attending Note
Patient seen and examined by attending physician: Yes
I performed the substantive portion of visit, reviewed & personally made and approve the management plan that is documented in note by myself or LUMA.: Yes
ED Attending Note:
Seen with PA examined independently agree with assessment and plan
Discharge Plan
Departure
Patient Disposition: Admit
Date of Disposition: 06/16/25
Time of Disposition: 23:02
Presentation/result/management discussed w/ accepting MD/DO: Hospitalist
Discharge Problem:
Hematoma, Acute constipation, Pain in male perineum
Prescriptions:
No Action
aspirin 81 MG tablet,delayed release (DR/EC)
81 mg PO DAILY 0RF
atorvastatin [Lipitor] 80 mg Tablet
80 mg PO QPM
furosemide [Lasix] 40 mg tablet
40 mg PO DAILY Qty: 30 0RF
sildenafil 100 mg Tablet
100 mg PO DAILY PRN (Reason: ED)
ezetimibe 10 mg Tablet
10 mg PO DAILY
trazodone 50 mg Tablet
50 mg PO HS
acetaminophen 500 mg Tablet
1,000 mg PO Q6H PRN (Reason: arthritis pain)
warfarin 5 mg Tablet
5 mg PO QPM
Patient Comments:
pt takes with 1.5mg = 6.5mg daily
warfarin 1 mg Tablet
1.5 mg PO QPM
Patient Comments:
pt takes with 5mg = 6.5mg daily
carvedilol 6.25 mg Tablet
6.25 mg PO BID
Referrals:
Princess Schmitz MD [Family Provider]
Interventions
Interventions:
*General Assessment Last Done: 06/16/25 23:27
*Neglect/Abuse Screening Last Done: 06/16/25 23:27
*ED COVID-19 Vaccine History Last Done: 06/16/25 23:27
*ED Influenza Vaccine History Last Done: 06/16/25 23:27
[facility] Risk Assessment Tool Last Done: 06/16/25 20:07
*Risk Screen - Suicide (C-SSRS) Last Done: 06/16/25 16:54
GP-Vhqygk-Pzcirneark Assessment Last Done: 06/16/25 20:07
Discharge Date and Time
Print Language: [place]
[2025-06-16 20:38] LABS: Urine Character Cloudy (Clear)
[2025-06-16 20:52] LABS: Urine Red Blood Cell >100 /HPF (0-2); Urine Squamous Cell 0-2 /LPF (Few)
[2025-06-16 21:40] VITALS: BP 152/84
[2025-06-16 22:41] VITALS: BP 133/75
--- NOTE | 2025-06-16 22:58 | HPS.HSE ---
Family Physician
-
Family Physician: Princess Schmitz
Chief Complaint
-
worsening incisional pain
History of Present Illness
Patient is a 75-year-old male with past medical history significant for paroxysmal atrial fibrillation, essential hypertension, HFrEF, CAD, ischemic cardiomyopathy, mechanical mitral valve replacement, left bundle branch block, GERD, hyperlipidemia
and anxiety who presented to [facility] ED for evaluation of worsening incisional pain. Patient with recent prostatectomy with Dr. Woods on 06/07/2025. Patient reports since surgery he has been unable to have a bowel movement, he spoke with surgeon
yesterday who stated it was safe to use suppository. Following administering himself suppository he had a small bowel movement and has been bleeding since then. He reports intermittent hematuria since surgery as well. Patient endorses low-grade
fever this morning when visiting nurse was present. Denies chills, cough, shortness of breath, nausea or vomiting.
Medical History
Past Medical History
Past Medical History: Reports Other
Additional Past Medical History:
paroxysmal atrial fibrillation
essential hypertension
HFrEF
CAD
ischemic cardiomyopathy
mechanical mitral valve replacement
left bundle branch block,
GERD
hyperlipidemia
anxiety
alcohol use disorder
Past Surgical History: Reports Other
Additional Past Surgical History:
prostatectomy 06/07/2025
CABG
PCI of OM 2
mitral valve repair 2018
mitral valve replacement 2019
Esophageal dilation
elbow surgery 05/2023
Social History
Tobacco: Non-smoker
Alcohol: Occasional
Drug: None
Personal:
Living: With Family
Employment: Retired
Family History
Family History: Not pertinent
Allergies / Home Medications
Allergies reflects when Allergies were last updated in [employer].
Home Medications with original date entered in [employer]
Allergy/Medication List:
Allergies
Allergy/AdvReac Type Severity Reaction Status Date / Time
No Known Allergies Allergy Verified 06/16/25 16:49
Home Medications
aspirin 81 mg tablet,delayed release 81 mg PO DAILY 06/24/18
atorvastatin 80 mg tablet (Lipitor) 80 mg PO QPM High Cholesterol 07/28/23
furosemide 40 mg tablet (Lasix) 40 mg PO DAILY #30 tabs 07/30/23
ezetimibe 10 mg tablet 10 mg PO DAILY High Cholesterol 09/08/23
sildenafil 100 mg tablet 100 mg PO DAILY PRN ED 09/08/23
acetaminophen 500 mg tablet 1,000 mg PO Q6H PRN arthritis pain 03/27/25
trazodone 50 mg tablet 50 mg PO HS Mental Health/Anxiety 03/27/25
warfarin 1 mg tablet 1.5 mg PO QPM Blood Clot Prevention/Tx 03/27/25
warfarin 5 mg tablet 5 mg PO QPM Blood Clot Prevention/Tx 03/27/25
carvedilol 6.25 mg tablet 6.25 mg PO BID 06/02/25
Review of Systems
-
History Source: Patient
Constitutional: Reports Fever; Denies Chills
EENT: Denies Sore Throat
Respiratory: Denies Cough, Hemoptysis or Trouble Breathing
Cardiac: Denies Chest Pain, Diaphoresis, Palpitations or Syncope
Abdomen/GI: Reports Abdominal Pain, Constipated and Other (poor appetite ); Denies Nausea, Vomiting or Diarrhea
: Reports Bleeding and Amin; Denies Dysuria, Frequency or Urgency
Musculoskeletal: Denies Joint Pain
Skin: Denies Rash
Neurological: Denies Dizzy, Headache, Weakness or Numbness
Physical Exam
Vital Signs
Vital Signs
Temp Pulse Resp BP Pulse Ox
97.7 F 98 18 133/75 97
06/16/25 16:50 06/16/25 22:41 06/16/25 22:41 06/16/25 22:41 06/16/25 22:41
Physical Exam
General: Well Developed, Well Nourished, Comfortable and Conversant
HEENT: NormoCephalic, Moist mucous membranes, PERRLA, Nose Appears Normal and Ears Appear Normal
Respiratory: Clear and Non Labored Respirations; No Wheezes, Rales or Rhonchi
Cardiac: S1/S2 and Regular Rhythm; No Murmur, Rub, Gallop or Peripheral Edema
GI: Soft, Non Tender, Non Distended and Normal Bowel Sounds
Rectal: Other (surgical incision well approximated with sutures intact. Indurated and purple area surrounding surgical incision)
Musculoskeletal: No Clubbing, No Cyanosis and No Edema
Skin: Warm and IV/Catheter Site
Neuro: Awake and AO x 3
Psych: Calm and Intact Judgment/Insight
Laboratory Results
-
06/16/25 17:04
06/16/25 17:04
Laboratory Results
Total Bilirubin 1.1 mg/dl (0.2-1.3) 06/16/25 17:04
AST 31 U/L (17-59) 06/16/25 17:04
ALT 41 U/L (0-50) 06/16/25 17:04
Alkaline Phosphatase 191 U/L (38-126) H 06/16/25 17:04
Lipase 139 U/L (23-300) 06/16/25 17:04
Data Reviewed
-
Lab Data: Labs Reviewed by me (WBC 16.6, hgb 11.0, hct 33.0, neut 81.9, Na+ 131, )
Impression/Plan
-
IMPRESSION/PLAN:
#constipation s/p prostatectomy 06/07/[address] Woods
#hematuria
patient reports bowel movement 06/07/2025, suppository given at home yesterday 06/15/2025 with small bowel movement
WBC 16.6, hgb 11.0, hct 33.0, neut 81.9, Na+ 131
Abd/Pel CT: Postoperative changes of prostatectomy. Within the surgical bed there is a 6.7 x 5.8 x 7.9 cm heterogeneous and overall mildly hyperdense opacity which may represent a postoperative
hematoma, however superimposed infection cannot be excluded.
Cholelithiasis.
Minimal colonic diverticulosis. Mild colonic stool burden.
- Admit to med/surg
- Consult Urology
- 1L NS given in ED
- IV Unasyn
- bowel regimen
- pain regimen
#paroxysmal atrial fibrillation
- continue carvedilol
- hold Warfarin until cleared by Urology
- check INR
#essential hypertension
- continue carvedilol
#HFrEF
- daily weights
- I & Os
- hold Lasix
#CAD
#ischemic cardiomyopathy
s/p CABG
- continue aspirin
#mechanical mitral valve replacement
- hold Warfarin until cleared by Urology
#hyperlipidemia
- continue atorvastatin and ezetimibe
#anxiety
- continue trazodone
#alcohol use disorder
#left bundle branch block
#GERD
Code status: full code
DVT prophylaxis: SCds
--- NOTE | 2025-06-16 23:01 | W.PN.UPDATE ---
Update Note
Progress Note Update
This is an addendum to H&P written by LEIA Cuevas
I saw and examined the patient.
The NUT PACKER's note was reviewed and I agree with the note.
Comment:
Mr. Ralf Hoover is a 75 yo man with hx adenocarcinoma of prostate s/p radical perineal prostatectomy with bladder neck reconstruction on 06/07/25, CAD s/p CABG, paroxysmal atrial fibrillation s/p ablation, mitral valve repair, GERD,
essential HTN, HLD, anxiety/depression presents to the ER with complaint of on-going bleeding from buttocks incision, constipation and hematuria in vega catheter. Patient states bleeding started after he took a suppository yesterday. He hadn't
had a BM since the day of surgery. Post suppository he had a small bowel movement and some relief in abdominal discomfort.
Triage VS: T 36.5, P 100, RR 21, BP 135/83, SpO2 99%
On exam patient appears mildly uncomfortable, abdomen soft; surgical site with bleeding, sutures in place.
LABS: WBC 16.6, Hg 11, PLT 536, Na 131, K+ 4.2, CO2 28, Cr 1.1, Glucose 132
CT A/P
IMPRESSION:
Postoperative changes of prostatectomy. Within the surgical bed there is a 6.7 x 5.8 x 7.9 cm heterogeneous and overall mildly hyperdense opacity which may represent a postoperative hematoma, however superimposed infection cannot be excluded.
Cholelithiasis.
Minimal colonic diverticulosis. Mild colonic stool burden.
Post-op constipation
Post-operative Hematoma, possible superimposed infection
prostate Cancer s/p radical perineal prostatectomy with bladder neck reconstruction on 06/07/25
-case discussed with Urology by ER recommending antibiotics and good bowel regimen
-with elevated WBC and e/o hemoconcentration patient to be admitted
-NS 500cc bolus now
-change ceftriaxone to Unasyn
-pain control
-bowel regimen: Miralax daily, colace BID
-Urology consult
CAD s/p CABG 2018
-POWER ORIGINATOR Aspirin, Statin, Coreg, Ezetimibe
Ischemic Cardiomyopathy with EF 35-40%
Chronic HFrEF
-hold Lasix - can likely resume tomorrow based on labs and exam
Paroxysmal Atrial Fibrillation on Coumadin
-obtain INR now
-with evidence of hematoma, will hold coumadin this evening - discuss with Urology if OK to resume tomorrow
DVT PPx SCD
FULL CODE
[2025-06-16] MEDS: DILAUDID 0.5 MG IV (23:16)
[2025-06-16 23:26] VITALS: BP 109/64
[2025-06-16] MEDS: NSS 500 IV (23:36)
[2025-06-16] MEDS: UNASYN IV (23:37)
[2025-06-17 00:04] LABS: INR 1.93; PT 21.8 Sec (11.4-14.6)
[2025-06-17 00:21] VITALS: BP 116/71
--- NOTE | 2025-06-17 01:14 | CONS.URO ---
Addendum entered and electronically signed by Jaime Hoff MD 06/17/25 01:32:
Post-op hematoma exacerbated by OAC.
OK to continue ASA
Hold Warfarin for now - trend H/H w/ consideration for resuming w/n 24-48 hrs
Original Note:
Consultation
-
Date/Time Consultation Requested: 06/17/25
Date/Time Consultation Performed: 06/17/25
Requesting Provider: Tonya
Performing Provider: Marc
Reason for Consultation: post-operative hematoma, fecal impaction
Medical History
History of Present Illness
75M s/p radical perineal prostatectomy on 06/07/25 (Amin catheter still in place).
Noted no BMs since surgery - d/w Dr. Woods yesterday w/ suppository advised.
Noted small BM after inserting suppository but has had persistent oozing from perineal incision.
Notes significant pelvic and perineal pain.
Amin catheter w/ intermittent hematuria WITHOUT clots.
Low grade fever noted in AM on 06/16/25 by VN.
Denies N/V, chills, flank pain.
Past Medical History
Past Medical History: Arrhythmia (pAF), CAD, Cancer (prostate cancer), GERD, HTN and Other (alcohol use disorder, anxiety, HLD, ischemic cardiomyopathy)
Past Surgical History: Cardiac (RPP (06/07/25), CABG, MV repair 2018, MV replacement 2019), Orthopedic (elbow surgery ) and Other (esophageal dilation)
Social History
Tobacco: Non-smoker
Alcohol: Occasional
Drug: None
Personal:
Living: With Family
Employment: Retired
Family History
Family History: Reviewed & Not Pertinent
Allergies/Home Medications
Allergies
Allergy/AdvReac Type Severity Reaction Status Date / Time
No Known Allergies Allergy Verified 06/16/25 16:49
Home Medications
�Medication �Instructions �Recorded �Confirmed �Type
aspirin 81 mg tablet,delayed 81 mg PO DAILY 06/24/18 06/16/25 Rx
release
atorvastatin 80 mg tablet (Lipitor) 80 mg PO QPM High Cholesterol 07/28/23 06/16/25 History
furosemide 40 mg tablet (Lasix) 40 mg PO DAILY #30 tabs 07/30/23 06/16/25 Rx
ezetimibe 10 mg tablet 10 mg PO DAILY High Cholesterol 09/08/23 06/16/25 History
sildenafil 100 mg tablet 100 mg PO DAILY PRN ED 09/08/23 06/16/25 History
acetaminophen 500 mg tablet 1,000 mg PO Q6H PRN arthritis pain 03/27/25 06/16/25 History
trazodone 50 mg tablet 50 mg PO HS Mental Health/Anxiety 03/27/25 06/16/25 History
warfarin 1 mg tablet 1.5 mg PO QPM Blood Clot 03/27/25 06/16/25 History
Prevention/Tx
warfarin 5 mg tablet 5 mg PO QPM Blood Clot 03/27/25 06/16/25 History
Prevention/Tx
carvedilol 6.25 mg tablet 6.25 mg PO BID 06/02/25 06/16/25 History
Physical Exam
Vital Signs
Vital Signs
Temp Pulse Resp BP Pulse Ox
97.7 F 90 16 116/71 93
06/16/25 16:50 06/17/25 00:21 06/17/25 00:21 06/17/25 00:21 06/17/25 00:21
Physical Exam
General: Well Developed and Well Nourished
HEENT: Normocephalic and Anicteric
Respiratory: Non Labored Respirations
Breast: N/A
GI: Soft and Non Tender
Rectal: Deferred by Provider
Genito-urinary: No Costovertebral Tend and Amin Catheter
Musculoskeletal: No Edema
Skin: Warm and Dry
Neuro: AO x 3, No Motor Deficits and Nonfocal/Grossly Intact
Hematologic/Lymphatic: No Lymphadenopathy
Psych: Calm and Intact Judgement
Assessment / Plan
-
Post-operative hematoma in prostate bed
Leukocytosis
Prostate cancer s/p RPP
H/H stable => no evidence of acute blood loss anemia
Cr WNL
Amin catheter w/ blood-tinged UOP as expected 1.5 weeks post-prostatectomy
exam => c/w healing perineal incision and prostate bed hematoma, NO purulent drainage or cellulitis/skin changes noted
CT imaging => c/w hematoma w/n prostate bed, bladder decompressed w/ Amin catheter, normal kidneys/ureters.
- Admitfor analgesia, bed rest, bowel regimen
- advise multimodal aggressive bowel regimen - Miralax, Colace, suppositories
- No indication for intervention of post-op hematoma - no indication of abscess or loculated infection
- IV Ceftriaxone
- Maintain Amin catheter for now
D/w Dr. Woods
Data Reviewed
-
Total Time Spent with Patient (in minutes): 45
CT Scan: Image personally visualized and interpreted, Report Reviewed by Me, Discussed with Physician and Discussed with Patient
Lab Data: Labs Reviewed, Discussed with Physician and Discussed with Patient
Old Records: Reviewed
[2025-06-17 01:16] VITALS: BP 124/65; BMI 23.7
[2025-06-17 01:20] VITALS: BMI 23.7
--- NOTE | 2025-06-17 01:20 | PTCARENOTE ---
Pt admitted to 404-1 from ED. AAOx3, ambulated with standby assist to bed. C/o /10 pain in rectal/perineal area. Small amount of blood from surgical site noted. Abd pads applied. Call walker within reach.
[2025-06-17] MEDS: COLACE 100 MG PO ×3 (01:29→20:48)
[2025-06-17] MEDS: DILAUDID 0.5 MG IV ×3 (01:39→09:14)
[2025-06-17] MEDS: UNASYN IV ×3 (05:54→17:08)
[2025-06-17 07:01] VITALS: BP 110/64
[2025-06-17 07:13] LABS: INR 1.85; PT 21.0 Sec (11.4-14.6)
[2025-06-17 07:21] LABS: Hematocrit 27.2 % (39.0-52.0); Hemoglobin 8.9 g/dL (13.0-18.0); Mean Corp Hgb Conc. 32.7 g/dL (33.0-37.0); Mean Corpuscular Volume 86.6 fL (80.0-94.0); Platelet Count 445 10^3/uL (130-400); Red Cell Dist. Width 14.2 % (11.5-14.5)
--- NOTE | 2025-06-17 07:40 | W.PN.URO.CBU ---
Today's Communication / Plan
-
- Analgesics (avoid opioids) prn
- Aggressive bowel regimen (Miralax, Colace, suppositories)
- No indication for intervention of post-op hematoma - conservative management
- Hold Warfarin for 24-48 hrs
- IV Ceftriaxone - plan for PO Cephalexin course on discharge
- Maintain Amin catheter => VT scheduled 06/21
D/w Dr. Woods
Assessment / Plan
-
Post-operative hematoma in prostate bed
Severe constipation
Leukocytosis
Prostate cancer s/p RPP
H/H stable => no evidence of acute blood loss anemia
Cr WNL
Amin catheter w/ blood-tinged UOP as expected 1.5 weeks post-prostatectomy
exam => c/w healing perineal incision and prostate bed hematoma, NO purulent drainage or cellulitis/skin changes noted
CT imaging => c/w hematoma w/n prostate bed, bladder decompressed w/ Amin catheter..
Diagnosis
-
Date of Service: June 17, 2025
-
Patient Diagnosis:
Post-operative hematoma in prostate bed
Severe constipation
Leukocytosis
Prostate cancer s/p RPP
Post Op Day:
06/07: s/p RRP
Subjective
-
Pelvic/lower abdominal pain SIGNIFICANTLY improved o/n.
Urine draining punch-colored to pink urine w/o obstruction.
Denies fevers.
Objective
-
Vital Signs
Temp Pulse Resp BP Pulse Ox
98.5 F 81 18 110/64 95
06/17/25 07:01 06/17/25 08:55 06/17/25 07:01 06/17/25 08:55 06/17/25 07:01
Intake and Output
06/16/25 06/17/25 06/18/25
06:59 06:59 06:59
Intake Total 120 / 120
Output Total 475 / 475
Balance -355 / -355
Intake:
IV piggybacks 120 / 120
Output:
Urine, Amin 475 / 475
Laboratory Results
06/17/25 06:49
06/17/25 06:49
Physical Exam
-
General - well developed, well nourished, no acute distress
Abdomen - soft, non-tender, mildly distended
- Amin catheter w/ pink-tinged UOP, perineal incision c/d/i w/ soft tissue swelling and scant oozing
Rectal - deferred
Extremities - no clubbing, no cyanosis, no edema
Care Review
Data Reviewed
Discussed with: Hospitalist
CT Scan: Report Pers Reviewed and Image Pers Reviewed
Total Time Spent with Patient (in minutes): 45
[2025-06-17 08:22] LABS: Blood Urea Nitrogen 18 mg/dl (9-20); Calcium 8.4 mg/dl (8.4-10.2); Carbon Dioxide 27 mmol/L (22-30); Chloride 97 mmol/L (98-107); Estimated Creatinine Clearance 82 ml/min; Glucose 103 mg/dl (70-99); Potassium 4.4 mmol/L (3.5-5.1); Sodium 131 mmol/L (135-145); eGFR > 60.00
--- NOTE | 2025-06-17 08:30 | VNURNOTE ---
Addendum entered by Perri Capellan RN 06/17/25 16:04:
Resumption referral placed in [facility].
Original Note:
Chart reviewed. Patient is current with [facility]. Will continue to follow hospital course and DC plans.
[2025-06-17] MEDS: COREG 6.25 MG PO ×2 (08:55→20:48)
[2025-06-17] MEDS: ASPIR LOW (ENTERIC COATED) 81 MG PO (08:55)
[2025-06-17] MEDS: MIRALAX 17 GRAMS PO ×2 (08:55→20:45)
[2025-06-17] MEDS: ZETIA 10 MG PO (08:55)
--- NOTE | 2025-06-17 11:58 | CON.CAR ---
Addendum entered and electronically signed by Pascual Willson MD 06/17/25 17:31:
Discussed with urologist via [place] text
with ongoing hematuria, rectal bleeding and drop in hemoglobin we will plan to recheck H/H in a.m. If Hgb remains stable tentatively plan to start heparin drip at that time.
Addendum entered and electronically signed by Pascual Willson MD 06/17/25 17:25:
I saw and examined the patient.
The Rubber Mill Tender's note was reviewed and I agree with the note.
Comment: Briefly, 75-year-old man past medical history of coronary artery disease with prior CABG/PCI and mechanical mitral valve on Coumadin (INR goal 2.5�3.5) who presents with rectal bleeding following recent prostatectomy. Cardiology is
consulted.
Warfarin currently on hold given ongoing rectal bleeding as well as hematuria. Risk of valve thrombosis or cardioembolic event with mechanical mitral valve would prefer starting heparin drip anticoagulation while off warfarin. Will reach out to
urology to see if/when this would be possible.
Discussed with patient and family at bedside
Original Note:
Consultation
Consultation Request
Date/Time Consultation Requested: 06/17/2025
Date/Time Consultation Performed: 06/17/2025
Requesting Provider: Dr. Hannah
Performing Provider: Jen Richey PA-C for Dr. Willson
Reason for Consultation: Coumadin mgt
Medical History
-
History of Present Illness:
HPI: Ralf is a 75 year old male with PMH of prostate cancer s/p prostatectomy 06/07/2025, CAD w/ prior PCI of OM2 and CABG x2, ischemic CM, chronic HFrEF, paroxysmal atrial fibrillation s/p PVI, mechanical MVR, GERD, HTN, HLD, and anxiety who
presented to [facility] ER for evaluation of rectal bleeding. Following prostatectomy, he was discharged on 06/13/2025 and states that last night he started with rectal bleeding after taking a suppository. Also with significant rectal pain. In ER,
rectal bleeding noted with occasional hematuria. Hemoglobin 11.0, but abdomen/pelvis CT showed possible hematoma at area of surgery with possible infection started on antibiotics and admitted for further evaluation. Developed worsening hematuria
overnight. Warfarin placed on hold. Cardiology consulted for evaluation. No chest pain, palpitations, dizziness, lightheadedness, lower extremity edema, or shortness of breath.
PMH:
Prostate cancer s/p radical prostatectomy 06/07/2025
CAD
NSTEMI 05/2018 with Stenting of OM2 with 3.0 x 38 mm Promus stent post dilated with 3.0 mm NC balloon
s/p CABG 06/07/2018, GIL to LAD and saphenous vein graft to PDA
Ischemic cardiomyopathy
Chronic HFrEF
Paroxysmal atrial fibrillation
s/p PVI 08/2023
On amiodarone prior to PVI
Chronic Coumadin therapy
Mitral valve repair w/ [place]-Fawad izabella-chords to A2 and 26mm annuloplasty ring 06/07/2018
Re-exploration with evacuation of pericardial fluid and modified Robicsek weave reclosure 06/16/18
s/p redo #29 [place] [facility] mitral valve replacement 10/17/18
GERD/dysphagia, s/p esophageal dilatation 08/2018 at [facility]
Rate dependent LBBB
Hypertension
Hyperlipidemia
Anxiety/depression
h/o moderate alcohol use/abuse
COVID and penumonia 06/21
Past Medical History
Past Medical History: Other (In HPI)
Past Surgical History: Cardiac (PCI of OM 2, CABGx2 05/2018, mitral valve repair 2017, mitral valve replacement 2018) and Other (Esophageal dilation, elbow surgery 05/2023)
Social History
Tobacco: Non-Smoker
Alcohol: Occasional
Drug: None
Personal:
Living: With Family
Employment: Retired
Family History
Family History: CAD
Allergies / Home Medications
Allergy/AdvReac Type Severity Reaction Status Date / Time
No Known Allergies Allergy Verified 06/16/25 16:49
�Medication �Instructions �Recorded �Confirmed �Type
aspirin 81 mg tablet,delayed 81 mg PO DAILY 06/24/18 06/16/25 Rx
release
atorvastatin 80 mg tablet (Lipitor) 80 mg PO QPM High Cholesterol 07/28/23 06/16/25 History
furosemide 40 mg tablet (Lasix) 40 mg PO DAILY #30 tabs 07/30/23 06/16/25 Rx
ezetimibe 10 mg tablet 10 mg PO DAILY High Cholesterol 09/08/23 06/16/25 History
sildenafil 100 mg tablet 100 mg PO DAILY PRN ED 09/08/23 06/16/25 History
acetaminophen 500 mg tablet 1,000 mg PO Q6H PRN arthritis pain 03/27/25 06/16/25 History
trazodone 50 mg tablet 50 mg PO HS Mental Health/Anxiety 03/27/25 06/16/25 History
warfarin 1 mg tablet 1.5 mg PO QPM Blood Clot 03/27/25 06/16/25 History
Prevention/Tx
warfarin 5 mg tablet 5 mg PO QPM Blood Clot 03/27/25 06/16/25 History
Prevention/Tx
carvedilol 6.25 mg tablet 6.25 mg PO BID Blood Pressure 06/02/25 06/16/25 History
Review of Systems
-
History Source: Patient
All other systems: Negative unless noted
Physical Exam
Vital Signs
Temp Pulse Resp BP Pulse Ox
98.5 F 81 18 110/64 95
06/17/25 07:01 06/17/25 08:55 06/17/25 07:01 06/17/25 08:55 06/17/25 07:01
Lab Results
06/17/25 06:49
06/17/25 06:49
Physical Exam
General: Well Developed, Well Nourished and No Apparent Distress
HEENT: Normocephalic, Anicteric and Moist Mucous Membranes
Respiratory: Clear and Non Labored Respirations
Cardiac: S1/S2, Regular Rhythm and Murmur
Musculoskeletal: No Clubbing, No Cyanosis and No Edema
Skin: Warm and Dry
Neuro: AO x 3 and Nonfocal/Grossly Intact
Psych: Calm
Impression / Plan
-
PCP
Fuel Tank Sealer And Tester: Dr. Aponte
Impression:
Presented with rectal bleeding, hematuria
Prostate cancer s/p radical prostatectomy 06/07/2025
Post-op hematoma
Hematuria
CAD
NSTEMI 05/2018 with Stenting of OM2 with 3.0 x 38 mm Promus stent post dilated with 3.0 mm NC balloon
s/p CABG 06/07/2018, GIL to LAD and saphenous vein graft to PDA
Ischemic cardiomyopathy
Chronic HFrEF
Paroxysmal atrial fibrillation
s/p PVI 08/2023
On amiodarone prior to PVI
Chronic Coumadin therapy
Mitral valve repair w/ [place]-Fawad izabella-chords to A2 and 26mm annuloplasty ring 06/07/2018
Re-exploration with evacuation of pericardial fluid and modified Robicsek weave reclosure 06/16/18
s/p redo #29 [facility] mitral valve replacement 10/17/18
GERD/dysphagia, s/p esophageal dilatation 08/2018 at [facility]
Rate dependent LBBB
Hypertension
Hyperlipidemia
Anxiety/depression
h/o moderate alcohol use/abuse
COVID and penumonia 06/21
ECHO 03/28/2025: EF 35-40%, aortic sclerosis, trace AI, global LV hypokinesis, paradoxical septal motion, #29mm [facility] [facility] mech MVR with peak/mean gradients 8.4/2mmHg, trace MR, mild cLVH
Plan:
-Presented with rectal pain, bleeding following recent prostatectomy. Hematoma noted on CT scan.
-Hgb 11.0 on arrival, down to 8.9 this AM, Continue to follow.
-Warfarin placed on hold by urology. Still w/ ongoing hematuria. Follow INR, 1.85 this AM. Goal 2.5-3.5, followed by [facility] office
-Given mechanical mitral valve, consider IV heparin if OK w/ urology. Ideally would like to minimize time off anticoagulation.
-Continue abx per primary service.
-Does have h/o paroxysmal atrial fibrillation. No EKG this admission. Ordered by me. No palpitations noted.
-Echo 02/2025 with EF 35-40% as noted above. No need to repeat.
HPI: Ralf is a 75 year old male with PMH of prostate cancer s/p prostatectomy 06/07/2025, CAD w/ prior PCI of OM2 and CABG x2, ischemic CM, chronic HFrEF, paroxysmal atrial fibrillation s/p PVI, mechanical MVR, GERD, HTN, HLD, and anxiety who
presented to [facility] ER for evaluation of rectal bleeding. Following prostatectomy, he was discharged on 06/13/2025 and states that last night he started with rectal bleeding after taking a suppository. Also with significant rectal pain. In ER,
rectal bleeding noted with occasional hematuria. Hemoglobin 11.0, but abdomen/pelvis CT showed possible hematoma at area of surgery with possible infection started on antibiotics and admitted for further evaluation. Developed worsening hematuria
overnight. Warfarin placed on hold. Cardiology consulted for evaluation. No chest pain, palpitations, dizziness, lightheadedness, lower extremity edema, or shortness of breath.
Data Reviewed
-
CT Scan: Report Reviewed by me
Labs: Labs Reviewed by me
Old Records: Reviewed
[2025-06-17] MEDS: TYLENOL 650 MG PO ×2 (12:02→17:07)
[2025-06-17] MEDS: TORADOL 15 MG IV ×2 (12:03→18:12)
--- NOTE | 2025-06-17 14:20 | W.PN.HOSP.TC ---
Today's Communication/Plan
-
Assessment / Plan
Assessment / Plan
Postop constipation
Fleet enemas already ordered
Plan add milk of molasses enema x 1 right now 500 to be given
Make MiraLAX twice daily
Docusate senna twice a day
Prostate CA s/p radical perineal prostatectomy with bladder neck reconstruction
Manage per urology
Continue IV antibiotics analgesics
Chronic anemia, suspect hemoglobin 11 likely outlier, previous hemoglobins were in the eights/nines.
Continue folic
Monitor for bleeding
Hold anticoagulation
Paroxysmal atrial fibrillation on Coumadin
Daily INR
Hold Coumadin
Consult cardiology for anticoagulation recommendations
Mechanical mitral valve
Holding Coumadin
Have sent uro a TT about ?need for hep gtt if cleared by them to start
CAD s/p CABG
Aspirin statin Coreg Zetia
Chronic HFrEF
Monitor off of Lasix for now
Anticipated Discharge: > 48 hours
Subjective/Interval History
-
Date of Service: June 17, 2025
Seen and examined. No new complaints. No acute overnight events.
No suprapubic or rectal pain noted
Objective Data
-
Labs:
Laboratory Results
06/17/25
06:49
WBC 15.7 H
Hgb 8.9 L
Hct 27.2 L
Plt Count 445 H
PT 21.0 H
INR 1.85
Sodium 131 L
Potassium 4.4
Chloride 97 L
Carbon Dioxide 27
BUN 18
Creatinine 0.9
Glucose 103 H
Calcium 8.4
Vital Signs:
Vital Signs
Temp Pulse Resp BP Pulse Ox
98.5 F 81 18 110/64 95
06/17/25 07:01 06/17/25 08:55 06/17/25 07:01 06/17/25 08:55 06/17/25 07:01
I&O
06/16/25 06/17/25 06/18/25
06:59 06:59 06:59
Intake Total 120 / 120
Output Total 475 / 475
Balance -355 / -355
Physical Exam
-
General: Well Nourished, No Apparent Distress and Comfortable
HEENT: Normocephalic and Atraumatic
Respiratory: Clear to Auscultation
Cardiac: Regular Rhythm and S1/S2
GI: Soft, Nontender, Nondistended and Normal Bowel Sounds
Genito-urinary: No Costovertebral Tender, Bloody Urine and Amin
Musculoskeletal: No Clubbing, No Cyanosis and No Edema
Skin: Warm and Dry
Neuro: Awake and AO x 3
Psych: Calm
[2025-06-17 15:06] VITALS: BP 114/66
--- NOTE | 2025-06-17 15:09 | W.PN.UPDATE ---
Update Note
Progress Note Update
Prior post-op 18Fr catheter removed after hand irrigation attempts unsuccessful - NS flushed in but unable to be irrigated out despite catheter repositioning.
RN noted intermittent obstruction w/ worsening hematuria in daytime.
22Fr 3-way catheter inserted atraumatically and without resistance by Urology (fresh vesicourethral anastomosis from 06/07) - immediate efflux of 200 cc bloody aqueous urine w/ clot debris.
Blank syringe used to hand irrigate with 250 cc of NS - no clots noted w/ light pink urine drainage.
3-way catheter placed to gravity drainage only.
Plan:
- Maintain Amin catheter to drainage
- Hand irrigate q6hrs prn obstruction/clots
- HOLD Warfarin, OK to continue ASA
- Trend H/H
- Mg citrate x1 now, bowel regimen
D/w patient, spouse, and daughter.
[2025-06-17] MEDS: CITROMA 300 ML PO (15:21)
--- NOTE | 2025-06-17 16:54 | CM ---
Alert awake oriented patient who lives with his Lynn who lives in a 1 story home with 2 step to enter . He is independent in driving and in all activities of daily living.He was offered VN he requested [facility] resumption .
Pt [facility] history
Pharmacy [facility]
PCP DR Kalyan Abbott
PLAN Home with [facility]
[2025-06-17] MEDS: LIPITOR 80 MG PO (17:07)
[2025-06-17] MEDS: SENOKOT-S 1 TABLET PO (20:48)
[2025-06-17] MEDS: DESYREL 50 MG PO (21:09)
--- NOTE | 2025-06-17 22:25 | PTCARENOTE ---
06/17: pt transferred to [address] [place] [id number]. pt aaox3, oriented to room. callbell within reach
[2025-06-17] MEDS: MYLICON 80 MG PO (22:34)
[2025-06-17] MEDS: DILAUDID 0.25 MG IV (23:49)
[2025-06-18] MEDS: UNASYN IV ×5 (00:50→23:00)
[2025-06-18] MEDS: TORADOL 15 MG IV ×2 (05:00→12:14)
[2025-06-18 08:17] LABS: Hematocrit 25.8 % (39.0-52.0); Hemoglobin 8.4 g/dL (13.0-18.0); Mean Corp Hgb Conc. 32.6 g/dL (33.0-37.0); Mean Corpuscular Volume 88.1 fL (80.0-94.0); Platelet Count 408 10^3/uL (130-400); Red Cell Dist. Width 14.4 % (11.5-14.5)
[2025-06-18 08:23] VITALS: BP 108/70
[2025-06-18] MEDS: ASPIR LOW (ENTERIC COATED) 81 MG PO (11:05)
[2025-06-18] MEDS: COLACE 100 MG PO (11:05)
[2025-06-18] MEDS: ZETIA 10 MG PO (11:05)
[2025-06-18] MEDS: MIRALAX 17 GRAMS PO (11:05)
[2025-06-18] MEDS: COREG 6.25 MG PO (11:06)
[2025-06-18] MEDS: SENOKOT-S 1 TABLET PO ×2 (11:06→20:57)
[2025-06-18] MEDS: FLUSH (NSS) 2 FLUSH IV ×3 (11:07→17:50)
--- NOTE | 2025-06-18 11:14 | W.PN.URO.CBU ---
Today's Communication / Plan
-
- Continue reg diet and bowel regimen for resolving constipation this AM
- Some separation of wound edges with breakdown of outer vicryl suture layer - will consider loose reapproximation if bleeding from site does not improve
- Hold anticoagulation until bleeding improves
Assessment / Plan
-
Prostate cancer s/p RPP
Post-operative hematoma in prostate bed
Severe constipation
Leukocytosis
CT imaging => c/w hematoma w/n prostate bed, bladder decompressed w/ Vega catheter
H/H stable => no evidence of acute blood loss anemia
Cr WNL
Vega catheter w/ resolved hematuria s/p vega change 06/17
- Continue reg diet and bowel regimen for resolving constipation this AM
- Some separation of wound edges with breakdown of outer vicryl suture layer - will consider loose reapproximation if bleeding from site does not improve
- Hold anticoagulation until bleeding improves
Diagnosis
-
Date of Service: June 18, 2025
-
Patient Diagnosis:
Post Op Day:
Patient Diagnosis:
Post-operative hematoma in prostate bed
Severe constipation
Leukocytosis
Prostate cancer s/p RPP
Post Op Day:
06/07: s/p RRP
Subjective
-
Had BM x2 this morning which was loose
Some bleeding from incisions with BMs
Tolerating diet
Objective
-
Vital Signs
Temp Pulse Resp BP Pulse Ox
98.6 F 80 18 108/70 99
06/18/25 08:23 06/18/25 08:23 06/18/25 08:23 06/18/25 08:23 06/18/25 08:23
Intake and Output
06/17/25 06/18/25 06/19/25
06:59 06:59 06:59
Intake Total 120 / 120 480 / 480
Output Total 475 / 475 700 / 700
Balance -355 / -355 -220 / -220
Intake:
Oral fluids 480 / 480
IV piggybacks 120 / 120
Output:
Urine, Vega 475 / 475 700 / 700
Laboratory Results
06/18/25 07:56
06/17/25 06:49
Physical Exam
-
General - well developed, well nourished, no acute distress
Chest - clear
Abdomen - soft, non-tender
Incision in perineum is at the edges with opening of the superficial layer of suture
Some active bleeding from incision after BM this morning
--- NOTE | 2025-06-18 11:29 | W.PN.CARDCBS ---
Today's Communication / Plan
-
Initiate heparin anticoagulation as soon as hemostasis allows. He has a mechanical mitral valve and it appears as though he has not been fully anticoagulated since approximately June 09, 2025 therefore he is at ever-increasing risk of valve
related thromboembolic event/stroke until he is fully anticoagulated again
Impression / Plan
-
PCP
Gambling Dealer: Dr. Aponte
Impression:
Presented with rectal bleeding, hematuria
Prostate cancer s/p radical prostatectomy 06/07/2025
Post-op hematoma
Hematuria
CAD
NSTEMI 05/2018 with Stenting of OM2 with 3.0 x 38 mm Promus stent post dilated with 3.0 mm NC balloon
s/p CABG 06/07/2018, GIL to LAD and saphenous vein graft to PDA
Ischemic cardiomyopathy
Chronic HFrEF
Paroxysmal atrial fibrillation
s/p PVI 08/2023
On amiodarone prior to PVI
Chronic Coumadin therapy
Mitral valve repair w/ [place]-Fawad izabella-chords to A2 and 26mm annuloplasty ring 06/07/2018
Re-exploration with evacuation of pericardial fluid and modified Robicsek weave reclosure 06/16/18
s/p redo #29 [facility] mitral valve replacement 10/17/18
GERD/dysphagia, s/p esophageal dilatation 08/2018 at [facility]
Rate dependent LBBB
Hypertension
Hyperlipidemia
Anxiety/depression
h/o moderate alcohol use/abuse
COVID and penumonia 06/21
ECHO 03/28/2025: EF 35-40%, aortic sclerosis, trace AI, global LV hypokinesis, paradoxical septal motion, #29mm [place] mech MVR with peak/mean gradients 8.4/2mmHg, trace MR, mild cLVH
Plan:
Anticoagulation has been on hold given ongoing rectal bleeding after surgical prostatectomy last week.
He does have mechanical mitral valve.
Review of anticoagulation shows he is not been on therapeutic anticoagulation since approximately June 09.
Unfortunately he continues to have significant bleeding.
He is planned for return to the OR today.
Once it is felt he has reasonable hemostasis, we should start intravenous heparin with eventual plan to transition to oral anticoagulation with warfarin.
Continue abx per primary service.
Does have h/o paroxysmal atrial fibrillation. Maintaining sinus rhythm this admission. ECG June 17, 2025 reviewed by me, sinus rhythm with left bundle branch block
Echo 02/2025 with EF 35-40% as noted above. No need to repeat.
HPI: Ralf is a 75 year old male with PMH of prostate cancer s/p prostatectomy 06/07/2025, CAD w/ prior PCI of OM2 and CABG x2, ischemic CM, chronic HFrEF, paroxysmal atrial fibrillation s/p PVI, mechanical MVR, GERD, HTN, HLD, and anxiety who
presented to [facility] ER for evaluation of rectal bleeding. Following prostatectomy, he was discharged on 06/13/2025 and states that last night he started with rectal bleeding after taking a suppository. Also with significant rectal pain. In ER,
rectal bleeding noted with occasional hematuria. Hemoglobin 11.0, but abdomen/pelvis CT showed possible hematoma at area of surgery with possible infection started on antibiotics and admitted for further evaluation. Developed worsening hematuria
overnight. Warfarin placed on hold. Cardiology consulted for evaluation. No chest pain, palpitations, dizziness, lightheadedness, lower extremity edema, or shortness of breath.
Progress Note - Gambling Dealer
Subjective
Date of Service: June 18, 2025
Denies chest pain shortness of breath palpitations or dizziness.
No extremity numbness tingling or weakness. No difficulty with speech or swallow. No acute vision changes.
Objective
Labs:
06/18/25 07:56
06/17/25 06:49
Labs
Hgb 8.4 g/dL (13.0-18.0) L 06/18/25 07:56
Hct 25.8 % (39.0-52.0) L 06/18/25 07:56
Plt Count 408 10^3/uL (130-400) H 06/18/25 07:56
PT 21.0 Sec (11.4-14.6) H 06/17/25 06:49
INR 1.85 06/17/25 06:49
Sodium 131 mmol/L (135-145) L 06/17/25 06:49
Potassium 4.4 mmol/L (3.5-5.1) 06/17/25 06:49
BUN 18 mg/dl (9-20) 06/17/25 06:49
Creatinine 0.9 mg/dL (0.7-1.3) 06/17/25 06:49
Glucose 103 mg/dl (70-99) H 06/17/25 06:49
Vital Signs and I&O:
Vital Signs
Temp Pulse Resp BP Pulse Ox
98.6 F 80 18 108/70 99
06/18/25 08:23 06/18/25 08:23 06/18/25 08:23 06/18/25 08:23 06/18/25 08:23
Vital Signs
Temp Pulse Resp BP Pulse Ox
98.6 F 80 18 108/70 99
06/18/25 08:23 06/18/25 08:23 06/18/25 08:23 06/18/25 08:23 06/18/25 08:23
Intake & Output
06/16/25 06/17/25 06/18/25 06/19/25
06:59 06:59 06:59 06:59
Intake Total 120 / 120 480 / 480
Output Total 475 / 475 700 / 700
Balance -355 / -355 -220 / -220
Physical Exam
Physical Exam
General: Well Developed, Well Nourished and No Apparent Distress
HEENT: Normocephalic, Anicteric and Moist Mucous Membranes
Respiratory: Clear and Non Labored Respirations
Cardiac: S1/S2, Regular Rhythm and Murmur
Musculoskeletal: No Clubbing, No Cyanosis and No Edema
Skin: Warm and Dry
Neuro: AO x 3 and Nonfocal/Grossly Intact
Psych: Calm
--- NOTE | 2025-06-18 11:47 | W.PN.UPDATE ---
Update Note
Progress Note Update
Wound closure
- Perineal wound irrigated with betadine solution and gently agitated with gauze
- Skin lobo used to reapproximate wound edges along entire incision
- No active bleeding following procedure
- ABD pad dressing replaced
[2025-06-18 13:42] LABS: INR 1.80; PT 21.1 Sec (11.4-14.6)
[2025-06-18 15:47] VITALS: BP 100/55
[2025-06-18] MEDS: LIPITOR 80 MG PO (17:50)
[2025-06-18] MEDS: COREG PO (20:54)
[2025-06-18] MEDS: MIRALAX PO (20:55)
[2025-06-18] MEDS: COLACE PO (20:56)
[2025-06-18] MEDS: DILAUDID 0.5 MG IV (21:12)
[2025-06-18] MEDS: DESYREL 50 MG PO (22:59)
[2025-06-18] MEDS: ATIVAN 0.5 MG PO (22:59)
[2025-06-18 23:46] VITALS: BP 99/50
[2025-06-19] VITALS (9 sets, daily range): BP systolic 97–108; BP diastolic 52–66
[2025-06-19] MEDS: TORADOL 15 MG IV (04:08)
[2025-06-19] MEDS: UNASYN IV ×3 (06:18→18:32)
[2025-06-19 07:11] LABS: Hematocrit 23.0 % (39.0-52.0); Hemoglobin 7.5 g/dL (13.0-18.0); Mean Corp Hgb Conc. 32.6 g/dL (33.0-37.0); Mean Corpuscular Volume 88.1 fL (80.0-94.0); Nucleated Red Blood Cells % 0 % (-); Platelet Count 377 10^3/uL (130-400); Red Cell Dist. Width 14.5 % (11.5-14.5)
[2025-06-19 07:50] LABS: Blood Urea Nitrogen 17 mg/dl (9-20); Calcium 7.9 mg/dl (8.4-10.2); Carbon Dioxide 30 mmol/L (22-30); Chloride 98 mmol/L (98-107); Estimated Creatinine Clearance 67 ml/min; Glucose 100 mg/dl (70-99); Potassium 4.4 mmol/L (3.5-5.1); Sodium 130 mmol/L (135-145); eGFR > 60.00
[2025-06-19] MEDS: ASPIR LOW (ENTERIC COATED) 81 MG PO (09:26)
[2025-06-19] MEDS: COLACE PO ×2 (09:26→21:05)
[2025-06-19] MEDS: ZETIA 10 MG PO (09:26)
[2025-06-19] MEDS: COREG 6.25 MG PO ×2 (09:26→21:26)
[2025-06-19] MEDS: SENOKOT-S PO ×2 (09:27→21:05)
[2025-06-19] MEDS: MIRALAX PO ×2 (09:27→21:05)
[2025-06-19] MEDS: ATIVAN 0.5 MG PO ×2 (09:31→14:01)
--- NOTE | 2025-06-19 09:57 | W.PN.URO.CBU ---
Today's Communication / Plan
-
Transfuse 1 unit PRBCs
Monitor incisional bleeding
Hold anticoagulation
Assessment / Plan
-
Prostate cancer s/p RPP
Post-operative hematoma in prostate bed and incisional bleeding
Severe constipation
Leukocytosis
CT imaging => c/w hematoma w/n prostate bed, bladder decompressed w/ Vega catheter
Vega catheter w/ resolved hematuria s/p vega change 06/17
- Continue reg diet and bowel regimen for resolving constipation
- Maintain vega
Post operative bleeding
- Hematuria resolved
- Some separation of wound edges with breakdown of outer vicryl suture layer s/p wound closure with lobo 06/18
- Improved bleeding today though still with some saturated abd pads overnight
- Transfuse 1 unit PRBCs this AM
- Trend HGB
- Hold anticoagulation until bleeding improves
- Discussed use of tranexamic acid with cardiology which was advised against due to possible clot risk
Diagnosis
-
Date of Service: June 19, 2025
-
Patient Diagnosis:
Post Op Day:
Patient Diagnosis:
Post-operative hematoma in prostate bed
Severe constipation
Leukocytosis
Prostate cancer s/p RPP
Post Op Day:
06/07: s/p RRP
Subjective
-
Feeling well overnight
BM x3 yesterday
Saturated pads at incision overnight
Objective
-
Vital Signs
Temp Pulse Resp BP Pulse Ox
98.2 F 71 16 108/52 97
06/19/25 07:57 06/19/25 07:57 06/19/25 07:57 06/19/25 07:57 06/19/25 07:57
Intake and Output
06/18/25 06/19/25 06/20/25
06:59 06:59 06:59
Intake Total 480 / 480 200 / 200
Output Total 700 / 700 500 / 500
Balance -220 / -220 -300 / -300
Intake:
Oral fluids 480 / 480
IV piggybacks 200 / 200
Output:
Urine, Vega 700 / 700 500 / 500
Laboratory Results
06/19/25 06:40
06/19/25 06:40
Physical Exam
-
General - well developed, well nourished, no acute distress
Chest - clear bilaterally
Abdomen - soft, non-tender, positive bowel sounds, no CVAT, no incisional pain or distention
Vega in place with clear urine
[2025-06-19] MEDS: LASIX 40 MG PO (10:48)
--- NOTE | 2025-06-19 13:56 | W.PN.CARDCBS ---
Today's Communication / Plan
-
Once adequate hemostasis, recommend initiating IV heparin as a bridge to warfarin anticoagulation
Impression / Plan
-
PCP
Instrumental Music Teacher: Dr. Aponte
Impression:
Presented with rectal bleeding, hematuria
Prostate cancer s/p radical prostatectomy 06/07/2025
Post-op hematoma
Hematuria
CAD
NSTEMI 05/2018 with Stenting of OM2 with 3.0 x 38 mm Promus stent post dilated with 3.0 mm NC balloon
s/p CABG 06/07/2018, GIL to LAD and saphenous vein graft to PDA
Ischemic cardiomyopathy
Chronic HFrEF
Paroxysmal atrial fibrillation
s/p PVI 08/2023
On amiodarone prior to PVI
Chronic Coumadin therapy
Mitral valve repair w/ [place]-Fawad izabella-chords to A2 and 26mm annuloplasty ring 06/07/2018
Re-exploration with evacuation of pericardial fluid and modified Robicsek weave reclosure 06/16/18
s/p redo #29 [facility] mitral valve replacement 10/17/18
GERD/dysphagia, s/p esophageal dilatation 08/2018 at [facility]
Rate dependent LBBB
Hypertension
Hyperlipidemia
Anxiety/depression
h/o moderate alcohol use/abuse
COVID and penumonia 06/21
ECHO 03/28/2025: EF 35-40%, aortic sclerosis, trace AI, global LV hypokinesis, paradoxical septal motion, #29mm [facility] mech MVR with peak/mean gradients 8.4/2mmHg, trace MR, mild cLVH
Plan:
Anticoagulation has been on hold given ongoing rectal bleeding after surgical prostatectomy last week.
He does have mechanical mitral valve.
Review of anticoagulation shows he is not been on therapeutic anticoagulation since approximately June 09.
This is a complex and difficult situation as he continues to have significant bleeding.
He was taken back to the OR 06/18/2025 and found to have some separation of wound edges with breakdown of outer vicryl suture layer s/p wound closure with lobo 06/18
Subsequently improved bleeding today though still with some saturated abd pads overnight
He was transfused 1 unit PRBCs 1220 1:25 AM
Given ongoing bleeding, anticoagulation remains on hold.
Once it is felt he has reasonable hemostasis, we should start intravenous heparin with eventual plan to transition to oral anticoagulation with warfarin.
Urology discussed regarding use of tranexamic acid. I am unfamiliar with use of this agent in with [facility] MV especially given he has been unanticoagulated for the last 10 days (risk of [facility] valve thrombus?)
So I cannot make a recommendation on its safety or if it should be used.
Continue abx per primary service.
Does have h/o paroxysmal atrial fibrillation. Maintaining sinus rhythm this admission. ECG June 17, 2025 reviewed by me, sinus rhythm with left bundle branch block
Echo 02/2025 with EF 35-40% as noted above. No need to repeat.
HPI: Ralf is a 75 year old male with PMH of prostate cancer s/p prostatectomy 06/07/2025, CAD w/ prior PCI of OM2 and CABG x2, ischemic CM, chronic HFrEF, paroxysmal atrial fibrillation s/p PVI, mechanical MVR, GERD, HTN, HLD, and anxiety who
presented to [facility] ER for evaluation of rectal bleeding. Following prostatectomy, he was discharged on 06/13/2025 and states that last night he started with rectal bleeding after taking a suppository. Also with significant rectal pain. In ER,
rectal bleeding noted with occasional hematuria. Hemoglobin 11.0, but abdomen/pelvis CT showed possible hematoma at area of surgery with possible infection started on antibiotics and admitted for further evaluation. Developed worsening hematuria
overnight. Warfarin placed on hold. Cardiology consulted for evaluation. No chest pain, palpitations, dizziness, lightheadedness, lower extremity edema, or shortness of breath.
Progress Note - Instrumental Music Teacher
Subjective
Date of Service: June 19, 2025
No chest pain shortness of breath palpitations or dizziness
Objective
Labs:
06/19/25 06:40
06/19/25 06:40
Labs
Hgb 7.5 g/dL (13.0-18.0) L 06/19/25 06:40
Hct 23.0 % (39.0-52.0) L 06/19/25 06:40
Plt Count 377 10^3/uL (130-400) 06/19/25 06:40
PT 21.1 Sec (11.4-14.6) H 06/18/25 13:10
INR 1.80 06/18/25 13:10
Sodium 130 mmol/L (135-145) L 06/19/25 06:40
Potassium 4.4 mmol/L (3.5-5.1) 06/19/25 06:40
BUN 17 mg/dl (9-20) 06/19/25 06:40
Creatinine 1.1 mg/dL (0.7-1.3) 06/19/25 06:40
Glucose 100 mg/dl (70-99) H 06/19/25 06:40
Vital Signs and I&O:
Vital Signs
Temp Pulse Resp BP Pulse Ox
98.4 F 76 18 97/59 97
06/19/25 12:10 06/19/25 12:10 06/19/25 12:10 06/19/25 12:10 06/19/25 11:40
Vital Signs
Temp Pulse Resp BP Pulse Ox
98.4 F 76 18 97/59 97
06/19/25 12:10 06/19/25 12:10 06/19/25 12:10 06/19/25 12:10 06/19/25 11:40
Intake & Output
06/17/25 06/18/25 06/19/25 06/20/25
06:59 06:59 06:59 06:59
Intake Total 120 / 120 480 / 480 200 / 200
Output Total 475 / 475 700 / 700 500 / 500
Balance -355 / -355 -220 / -220 -300 / -300
Physical Exam
Physical Exam
General: Well Developed, Well Nourished and No Apparent Distress
HEENT: Normocephalic, Anicteric and Moist Mucous Membranes
Respiratory: Clear and Non Labored Respirations
Cardiac: S1/S2, Regular Rhythm and Murmur
Musculoskeletal: No Clubbing, No Cyanosis and No Edema
Skin: Warm and Dry
Neuro: AO x 3 and Nonfocal/Grossly Intact
[2025-06-19] MEDS: FLUSH (NSS) 2 FLUSH IV (16:07)
--- NOTE | 2025-06-19 18:11 | PTCARENOTE ---
Blood transfusion infused for 2134 Ralf Edwin Jeffreykaitlin finished infusing but never ended in tar due to circumstances on the floor from a different pt and his and pts change in level of care. So Blood bank notified and pink slip printed out
and sent back to blood bank. However unable to end in tar. Educator made aware. Will continue to monitor.
[2025-06-19] MEDS: LIPITOR 80 MG PO (18:32)
[2025-06-19] MEDS: DESYREL 50 MG PO (21:26)
[2025-06-20] MEDS: ATIVAN 0.5 MG PO ×3 (00:14→22:45)
[2025-06-20] MEDS: UNASYN IV ×3 (00:14→12:56)
[2025-06-20 07:40] VITALS: BP 112/65
--- NOTE | 2025-06-20 08:08 | W.PN.CARDCBS ---
Addendum entered and electronically signed by Devan Aponte DO 06/20/25 15:32:
I saw and examined the patient.
The Pie Filler's note was reviewed and I agree with the note.
Comment:
Plan:
After review with urology, patient is able to resume Coumadin 8 mg tonight then discharge back to daily dosing of 6.5 mg daily. Check INR as outpatient. Lovenox bridge until INR greater than 2.5
Monitor for signs of bleeding.
Hemoglobin has been stable
No significant recurrent bleeding
Stable cardiovascular status
Outpatient follow-up to be arranged
Discussed with daughter at bedside.
Addendum entered and electronically signed by Brenda Stapleton PA-C 06/20/25 14:41:
Discussed reinitiation of anticoagulation with urology, Dr. Woods. He is okay with resuming warfarin tonight 8 mg x 1 then discharge with daily Coumadin dosing of 6.5 mg. Check INR 06/24 or 06/27 as outpatient. Continue Lovenox bridge until INR
greater than 2.5. [facility] Coumadin clinic has been made aware of this plan.
Original Note:
Today's Communication / Plan
-
Hgb pending
If no active bleeding consider starting IV heparin and trend Hgb
Will need eventual resumption of Warfarin given mitral mechanical valve once no additional urologic procedures planned
Impression / Plan
-
PCP
Vascular Specialists: Dr. Aponte
Impression:
Presented 06/16/2025 with rectal bleeding, hematuria
Prostate cancer s/p radical prostatectomy 06/07/2025
Post-op hematoma
Hematuria
CAD
NSTEMI 05/2018 with Stenting of OM2 with 3.0 x 38 mm Promus stent post dilated with 3.0 mm NC balloon
s/p CABG 06/07/2018, GIL to LAD and saphenous vein graft to PDA
Ischemic cardiomyopathy
Chronic HFrEF
Paroxysmal atrial fibrillation
s/p PVI 08/2023
On amiodarone prior to PVI
Chronic Coumadin therapy
Mitral valve repair w/ [place]-Fawad izabella-chords to A2 and 26mm annuloplasty ring 06/07/2018
Re-exploration with evacuation of pericardial fluid and modified Robicsek weave reclosure 06/16/18
s/p redo #29 [facility] mitral valve replacement 10/17/18
GERD/dysphagia, s/p esophageal dilatation 08/2018 at [facility]
Rate dependent LBBB
Hypertension
Hyperlipidemia
Anxiety/depression
h/o moderate alcohol use/abuse
COVID and penumonia 06/21
ECHO 03/28/2025: EF 35-40%, aortic sclerosis, trace AI, global LV hypokinesis, paradoxical septal motion, #29mm [facility] mech MVR with peak/mean gradients 8.4/2mmHg, trace MR, mild cLVH
Plan:
Anticoagulation has been on hold given ongoing rectal bleeding after surgical prostatectomy last week.
Review of anticoagulation shows he is not been on therapeutic anticoagulation since approximately June 09.
He does have mechanical mitral valve.
Complex and difficult situation: He required additional procedure 06/18/2025 after he was found to have some separation of wound edges with breakdown of outer vicryl suture layer s/p wound closure with lobo with improved bleeding
He was transfused 1 unit PRBCs 06/18 1:25 AM; Hgb pending
Given ongoing bleeding, anticoagulation remains on hold.
Once it is felt he has reasonable hemostasis, we should start intravenous heparin with eventual plan to transition to oral anticoagulation with warfarin once no additional urologic procedures are planned.
Urology discussed regarding use of tranexamic acid. I am unfamiliar with use of this agent in with mech MV especially given he has been unanticoagulated for the last 10 days (risk of mech valve thrombus?). Cannot make a recommendation on its safety
or if it should be used. Would avoid
Continue abx per primary service.
Does have h/o paroxysmal atrial fibrillation. Maintaining sinus rhythm this admission. ECG June 17, 2025 sinus rhythm with left bundle branch block
Echo 02/2025 with EF 35-40% as noted above. No need to repeat. Appears to be euvolemic
Reports ongoing weakness when attempting to ambulate out of bed last evening. Would consider PT/OT assessment
HPI: Ralf is a 75 year old male with PMH of prostate cancer s/p prostatectomy 06/07/2025, CAD w/ prior PCI of OM2 and CABG x2, ischemic CM, chronic HFrEF, paroxysmal atrial fibrillation s/p PVI, mechanical MVR, GERD, HTN, HLD, and anxiety who
presented to [facility] ER for evaluation of rectal bleeding. Following prostatectomy, he was discharged on 06/13/2025 and states that last night he started with rectal bleeding after taking a suppository. Also with significant rectal pain. In ER,
rectal bleeding noted with occasional hematuria. Hemoglobin 11.0, but abdomen/pelvis CT showed possible hematoma at area of surgery with possible infection started on antibiotics and admitted for further evaluation. Developed worsening hematuria
overnight. Warfarin placed on hold. Cardiology consulted for evaluation. No chest pain, palpitations, dizziness, lightheadedness, lower extremity edema, or shortness of breath.
Progress Note - Vascular Specialists
Subjective
Date of Service: June 20, 2025
Patient seen and examined. Patient resting comfortably in bed. Offers no concerning cardiac complaints. Does mention when attempted to be ambulated yesterday he felt weak and needed assistance.
Objective
Labs:
Labs
Hgb 7.5 g/dL (13.0-18.0) L 06/19/25 06:40
Hct 23.0 % (39.0-52.0) L 06/19/25 06:40
Plt Count 377 10^3/uL (130-400) 06/19/25 06:40
PT 21.1 Sec (11.4-14.6) H 06/18/25 13:10
INR 1.80 06/18/25 13:10
Sodium 130 mmol/L (135-145) L 06/19/25 06:40
Potassium 4.4 mmol/L (3.5-5.1) 06/19/25 06:40
BUN 17 mg/dl (9-20) 06/19/25 06:40
Creatinine 1.1 mg/dL (0.7-1.3) 06/19/25 06:40
Glucose 100 mg/dl (70-99) H 06/19/25 06:40
Vital Signs and I&O:
Vital Signs
Temp Pulse Resp BP Pulse Ox
98.2 F 80 16 102/52 95
06/19/25 23:30 06/19/25 23:30 06/19/25 23:30 06/19/25 23:30 06/20/25 02:02
Vital Signs
Temp Pulse Resp BP Pulse Ox
98.2 F 80 16 102/52 95
06/19/25 23:30 06/19/25 23:30 06/19/25 23:30 06/19/25 23:30 06/20/25 02:02
Intake & Output
06/18/25 06/19/25 06/20/25 06/21/25
06:59 06:59 06:59 06:59
Intake Total 480 / 480 200 / 200 1655 / 1655
Output Total 700 / 700 500 / 500 2150 / 2150
Balance -220 / -220 -300 / -300 -495 / -495
Physical Exam
Physical Exam
GEN: No distress, awake, Ox3
HEENT: supple, anicteric, mmm
LUNGS: CTA, no wheezes/rales
CV: Reg, S1/S2, 1/6 murmur
ABD: soft, BS+, NT/ND
EXT: No edema, clubbing or cyanosis
NEURO: Gross non-focal
SKIN: No rash, warm, dry, pink
[2025-06-20] MEDS: ZETIA 10 MG PO (08:11)
[2025-06-20] MEDS: LASIX 40 MG PO (08:11)
[2025-06-20] MEDS: COLACE PO ×2 (08:11→20:40)
[2025-06-20] MEDS: ASPIR LOW (ENTERIC COATED) 81 MG PO (08:11)
[2025-06-20] MEDS: COREG 6.25 MG PO ×2 (08:12→20:45)
[2025-06-20] MEDS: SENOKOT-S PO ×2 (08:12→20:40)
[2025-06-20] MEDS: MIRALAX PO ×2 (08:12→20:40)
[2025-06-20] MEDS: MIRALAX 17 GRAMS PO (08:15)
[2025-06-20 10:18] LABS: Hematocrit 29.3 % (39.0-52.0); Hemoglobin 9.5 g/dL (13.0-18.0); Mean Corp Hgb Conc. 32.4 g/dL (33.0-37.0); Mean Corpuscular Volume 91.0 fL (80.0-94.0); Platelet Count 464 10^3/uL (130-400); Red Cell Dist. Width 14.5 % (11.5-14.5)
--- NOTE | 2025-06-20 10:41 | W.PN.URO.CBU ---
Today's Communication / Plan
-
Trend resolving bleeding and stable HGB
Dr. Woods to review plan for restarting AC today
Assessment / Plan
-
Prostate cancer s/p RPP
Post-operative hematoma in prostate bed and incisional bleeding
Severe constipation
Leukocytosis
CT imaging => c/w hematoma w/n prostate bed, bladder decompressed w/ Vega catheter
Vega catheter w/ resolved hematuria s/p vega change 06/17
- Continue reg diet and bowel regimen for resolved constipation
- Maintain vega
Post operative bleeding
- Hematuria resolved
- Some separation of wound edges with breakdown of outer vicryl suture layer s/p wound closure with lobo 06/18
- s/p transfusion 1 unit PRBCs 06/19 with excellent response HGB 9.5 06/20
- Improved incisional bleeding today with no need for pad changes overnight
- Hold anticoagulation until bleeding improves - may be able to resume today
- Dr. Woods to review this afternoon and discuss timing
- Discussed use of tranexamic acid with cardiology which was advised against due to possible clot risk
- Consider PT/OT for ambulation
Diagnosis
-
Date of Service: June 20, 2025
-
Patient Diagnosis:
Post Op Day:
Patient Diagnosis:
Post-operative hematoma in prostate bed
Severe constipation
Leukocytosis
Prostate cancer s/p RPP
Post Op Day:
06/07: s/p RRP
Subjective
-
Having BMs
Tolerating diet
Feeling weak with ambilation yesterday
Objective
-
Vital Signs
Temp Pulse Resp BP Pulse Ox
98.7 F 79 16 112/65 96
06/20/25 07:40 06/20/25 08:12 06/20/25 07:40 06/20/25 08:12 06/20/25 07:40
Intake and Output
06/19/25 06/20/25 06/21/25
06:59 06:59 06:59
Intake Total 200 / 200 1655 / 1655
Output Total 500 / 500 2150 / 2150
Balance -300 / -300 -495 / -495
Intake:
Oral fluids 960 / 960
IV piggybacks 200 / 200 440 / 440
Blood products 255 / 255
Output:
Urine, Vega 500 / 500 2150 / 2150
Laboratory Results
06/20/25 09:01
Physical Exam
-
General - well developed, well nourished, no acute distress
Chest - clear bilaterally
Mild bleeding at perineal incision
[2025-06-20 10:58] LABS: Blood Urea Nitrogen 14 mg/dl (9-20); Calcium 8.3 mg/dl (8.4-10.2); Carbon Dioxide 26 mmol/L (22-30); Chloride 100 mmol/L (98-107); Estimated Creatinine Clearance 74 ml/min; Glucose 118 mg/dl (70-99); Magnesium 2.3 mg/dl (1.6-2.3); Potassium 4.7 mmol/L (3.5-5.1); Sodium 131 mmol/L (135-145); eGFR > 60.00
--- NOTE | 2025-06-20 13:28 | W.PN.UPDATE ---
Update Note
Progress Note Update
hemoglobin stabel
no further bleeding would begin hep gtt with bridge coumadin
follow cards recs
[2025-06-20 15:00] VITALS: BP 104/66
--- NOTE | 2025-06-20 16:07 | CM ---
CM reviewed chart
Per nursing notes, pt moving well throughout room
Plan for home with [facility]- referral accepted
Discharge Disposition- home with [facility]
[2025-06-20] MEDS: COUMADIN 8 MG PO (17:23)
[2025-06-20] MEDS: LIPITOR 80 MG PO (17:23)
[2025-06-20] MEDS: LOVENOX 80 MG SC (20:42)
[2025-06-20] MEDS: DESYREL 50 MG PO (22:45)
[2025-06-20 23:42] VITALS: BP 125/78
[2025-06-21] MEDS: TORADOL 15 MG IV (01:56)
[2025-06-21 05:48] VITALS: BMI 23.8
[2025-06-21 07:35] VITALS: BP 108/62
[2025-06-21 08:08] LABS: Hematocrit 29.3 % (39.0-52.0); Hemoglobin 9.5 g/dL (13.0-18.0); Mean Corp Hgb Conc. 32.4 g/dL (33.0-37.0); Mean Corpuscular Volume 91.3 fL (80.0-94.0); Platelet Count 476 10^3/uL (130-400); Red Cell Dist. Width 14.6 % (11.5-14.5)
[2025-06-21 08:18] LABS: INR 1.18; PT 15.2 Sec (11.4-14.6)
[2025-06-21] MEDS: ZETIA 10 MG PO (08:24)
[2025-06-21] MEDS: MIRALAX 17 GRAMS PO (08:24)
[2025-06-21] MEDS: LOVENOX 80 MG SC (08:24)
[2025-06-21] MEDS: ASPIR LOW (ENTERIC COATED) 81 MG PO (08:24)
[2025-06-21] MEDS: COREG 6.25 MG PO (08:24)
[2025-06-21] MEDS: LASIX 40 MG PO (08:24)
[2025-06-21] MEDS: COLACE PO (08:25)
[2025-06-21] MEDS: SENOKOT-S PO (08:25)
[2025-06-21 08:38] LABS: Blood Urea Nitrogen 13 mg/dl (9-20); Calcium 8.6 mg/dl (8.4-10.2); Carbon Dioxide 30 mmol/L (22-30); Chloride 101 mmol/L (98-107); Estimated Creatinine Clearance 67 ml/min; Glucose 93 mg/dl (70-99); Magnesium 2.2 mg/dl (1.6-2.3); Potassium 5.2 mmol/L (3.5-5.1); Sodium 132 mmol/L (135-145); eGFR > 60.00
--- NOTE | 2025-06-21 08:56 | PN.CDI ---
CDI
- -
CDI:
Physician Documentation Request
Admit Date: 06/16/25 23:31
Dear Doctor,
Patient admitted for postoperative bleeding.
06/19 Cardiology PN: 'Chronic Coumadin therapy...Anticoagulation has been on hold given ongoing rectal bleeding after surgical prostatectomy last week'
06/19 Urology PN: 'Post operative bleeding - Hematuria resolved...Transfuse 1 unit PRBCs this AM - Trend HGB - Hold anticoagulation until bleeding improves'
Please clarify the relationship between these conditions:
Yes, hematuria is related to/associated with/exacerbated by Coumadin.
No, hematuria is not related to/associated with/exacerbated by Coumadin but it is due to ___. (Please specify)
Unable to determine
Use of terms such as suspected, likely, concern for, or probable (associated with a specific diagnosis that is being evaluated, monitored, or treated as if it exists) are acceptable and can be coded in the inpatient setting, when documented at the
time of discharge.
Thank you,
Sara Engel RN, BSN
CDI Specialist
Available via [place] text
Please use your independent medical judgment in providing your response.
--- NOTE | 2025-06-21 09:24 | PN.CDI ---
CDI
- -
CDI:
Physician Documentation Request
Admit Date: 06/16/25 23:31
Dear Doctor,
Patient admitted for postoperative bleeding.
Laboratory Tests
06/16/25 06/17/25 06/19/25
17:04 06:49 06:40
Sodium 131 L 131 L 130 L
06/20/25 06/21/25
09:01 07:28
Sodium 131 L 132 L
Based on the above, could you clarify in the progress notes, the appropriate diagnosis, if significant, that supports the above abnormalities and additional evaluation, monitoring and/or treatment rendered:
Hyponatremia
Abnormal lab value insignificant
Other
Use of terms such as suspected, likely, concern for, or probable (associated with a specific diagnosis that is being evaluated, monitored, or treated as if it exists) are acceptable and can be coded in the inpatient setting, when documented at the
time of discharge.
Thank you,
Sara Engel RN, BSN
CDI Specialist
Available via [place] text
Please use your independent medical judgment in providing your response.
--- NOTE | 2025-06-21 09:38 | W.PN.CARDCBS ---
Today's Communication / Plan
-
After review with urology, patient resumed Coumadin 8 mg PM 06/20 and then can discharge back to daily dosing of 6.5 mg daily.
INR 1.18 today.
Cont Lovenox bridge and monitor INR as outpt.
Cont Lovenox bridge until INR greater than 2.5
Monitor for signs of bleeding.
Hemoglobin has been stable
No significant recurrent bleeding
Stable cardiovascular status
Outpatient follow-up to be arranged
Impression / Plan
-
.
PCP
Hat Presser: Dr. Aponte
Impression:
Presented 06/16/2025 with rectal bleeding, hematuria
Prostate cancer s/p radical prostatectomy 06/07/2025
Post-op hematoma
Hematuria
CAD
NSTEMI 05/2018 with Stenting of OM2 with 3.0 x 38 mm Promus stent post dilated with 3.0 mm NC balloon
s/p CABG 06/07/2018, GIL to LAD and saphenous vein graft to PDA
Ischemic cardiomyopathy
Chronic HFrEF
Paroxysmal atrial fibrillation
s/p PVI 08/2023
On amiodarone prior to PVI
Chronic Coumadin therapy
Mitral valve repair w/ [place]-Fawad izabella-chords to A2 and 26mm annuloplasty ring 06/07/2018
Re-exploration with evacuation of pericardial fluid and modified Robicsek weave reclosure 06/16/18
s/p redo #29 [facility] mitral valve replacement 10/17/18
GERD/dysphagia, s/p esophageal dilatation 08/2018 at [facility]
Rate dependent LBBB
Hypertension
Hyperlipidemia
Anxiety/depression
h/o moderate alcohol use/abuse
COVID and penumonia 06/21
ECHO 03/28/2025: EF 35-40%, aortic sclerosis, trace AI, global LV hypokinesis, paradoxical septal motion, #29mm [facility] MVR with peak/mean gradients 8.4/2mmHg, trace MR, mild cLVH
Plan:
After review with urology, patient resumed Coumadin 8 mg PM 06/20 and then can discharge back to daily dosing of 6.5 mg daily.
INR 1.18 today.
Cont Lovenox bridge and monitor INR as outpt.
Cont Lovenox bridge until INR greater than 2.5
Monitor for signs of bleeding.
Hemoglobin has been stable
No significant recurrent bleeding
Stable cardiovascular status
Outpatient follow-up to be arranged
Additional hx: He required additional procedure 06/18/2025 after he was found to have some separation of wound edges with breakdown of outer vicryl suture layer s/p wound closure with lobo with improved bleeding. He was transfused 1 unit PRBCs
06/18 1:25 AM
Hx paroxysmal atrial fibrillation. Maintaining sinus rhythm this admission.
Remains euvolemic
HPI: Ralf is a 75 year old male with PMH of prostate cancer s/p prostatectomy 06/07/2025, CAD w/ prior PCI of OM2 and CABG x2, ischemic CM, chronic HFrEF, paroxysmal atrial fibrillation s/p PVI, mechanical MVR, GERD, HTN, HLD, and anxiety who
presented to [facility] ER for evaluation of rectal bleeding. Following prostatectomy, he was discharged on 06/13/2025 and states that last night he started with rectal bleeding after taking a suppository. Also with significant rectal pain. In ER,
rectal bleeding noted with occasional hematuria. Hemoglobin 11.0, but abdomen/pelvis CT showed possible hematoma at area of surgery with possible infection started on antibiotics and admitted for further evaluation. Developed worsening hematuria
overnight. Warfarin placed on hold. Cardiology consulted for evaluation. No chest pain, palpitations, dizziness, lightheadedness, lower extremity edema, or shortness of breath.
Progress Note - Hat Presser
Subjective
Date of Service: June 21, 2025
Pt seen and examined. No complaints. No chest pain or shortness of breath.
Objective
Labs:
06/21/25 07:28
06/21/25 07:28
Labs
Hgb 9.5 g/dL (13.0-18.0) L 06/21/25 07:28
Hct 29.3 % (39.0-52.0) L 06/21/25 07:28
Plt Count 476 10^3/uL (130-400) H 06/21/25 07:28
PT 15.2 Sec (11.4-14.6) H 06/21/25 07:28
INR 1.18 06/21/25 07:28
Sodium 132 mmol/L (135-145) L 06/21/25 07:28
Potassium 5.2 mmol/L (3.5-5.1) H 06/21/25 07:28
BUN 13 mg/dl (9-20) 06/21/25 07:28
Creatinine 1.1 mg/dL (0.7-1.3) 06/21/25 07:28
Glucose 93 mg/dl (70-99) 06/21/25 07:28
Vital Signs and I&O:
Vital Signs
Temp Pulse Resp BP Pulse Ox
98.6 F 84 16 108/62 99
06/21/25 07:35 06/21/25 08:24 06/21/25 07:35 06/21/25 08:24 06/21/25 07:35
Vital Signs
Temp Pulse Resp BP Pulse Ox
98.6 F 84 16 108/62 99
06/21/25 07:35 06/21/25 08:24 06/21/25 07:35 06/21/25 08:24 06/21/25 07:35
Intake & Output
06/19/25 06/20/25 06/21/25 06/22/25
06:59 06:59 06:59 06:59
Intake Total 200 / 200 1655 / 1655 1500 / 1500
Output Total 500 / 500 2150 / 2150 2125 / 2125
Balance -300 / -300 -495 / -495 -625 / -625
Physical Exam
Physical Exam
General: No acute distress, AAOX3
Neck: Negative JVD
Heart: Regular, Negative S3 positive S1/S2, Negative S4, No murmur
Lungs: CTA b/l, negative wheezes/rales/rhonchi
Abd: Positive BS, NT/ND, neg rebound/rigidity/guarding
Ext: Negative cyanosis/clubbing/edema
Neuro: nonfocal
--- NOTE | 2025-06-21 11:34 | W.DS.TRANS ---
Addendum entered and electronically signed by Julio Woods MD 06/27/25 10:08:
Acute blood loss anemia directly related to use of warfarin
Hyponatremia is an insignificant laboratory test result
Original Note:
DC Summary - Die Mounter
-
Discharge Instructions:
Sleep Apnea Risk Intermediate
Discharge Diagnosis/Procedures Prostate cancer
Diet No restrictions
Activity No strenuous activity
Additional Activity for 1 week
Driving Restrictions No driving for 1 week
Bathing Restrictions OK to Shower
Other Services VN
Wound Care replace gauze dressing as needed
Instructions:
Stand-Alone Forms:
Changes to Home Medications: No
Discharge Medications:
DC Medications w/original date entered in [employer]
aspirin 81 mg tablet,delayed release 81 mg PO DAILY 06/24/18
atorvastatin 80 mg tablet (Lipitor) 80 mg PO QPM High Cholesterol 07/28/23
furosemide 40 mg tablet (Lasix) 40 mg PO DAILY #30 tabs 07/30/23
ezetimibe 10 mg tablet 10 mg PO DAILY High Cholesterol 09/08/23
sildenafil 100 mg tablet 100 mg PO DAILY PRN ED 09/08/23
acetaminophen 500 mg tablet 1,000 mg PO Q6H PRN arthritis pain 03/27/25
trazodone 50 mg tablet 50 mg PO HS Mental Health/Anxiety 03/27/25
warfarin 1 mg tablet 1.5 mg PO QPM Blood Clot Prevention/Tx 03/27/25
warfarin 5 mg tablet 5 mg PO QPM Blood Clot Prevention/Tx 03/27/25
carvedilol 6.25 mg tablet 6.25 mg PO BID Blood Pressure 06/02/25
Home Medication Changes
Pending Results: No
--- NOTE | 2025-06-21 12:19 | CM ---
CM reviewed chart and noted dc order
Bedside meeting with pt- plan for home with [facility]
Pt has laready contact spouse with update and for ride home
IMM verbally reviewed- copy provided
Discharge Disposition- home with [facility], spouse transport
[2025-06-21] MEDS: ATIVAN 0.5 MG PO (13:21)
--- NOTE | 2025-06-21 13:31 | PTCARENOTE ---
Addendum entered by Kristina Gilman RN 06/21/25 13:37:
Pt to be DC'd with [facility], following up OP for removal per CM.
Original Note:
called this RN to let her know that they will not be able to administer evening dose or provide education today. This RN went over Lovenox shot injection with instructions written down for reference (no education packets or policies available on
[employer] for reference). Pt requesting Lorazepam prescription reflecting Q4H PRN schedule that he has been on while in the hospital, made aware, no prescription on DC paperwork. Administration times during last few days of this admission
written down for pt to provide to his PCP in case they would like to create a prescription for him after DC in the future. No new orders at this time.
[2025-06-21 15:08] VITALS: BP 108/54
== END 2025-06-21 15:15 | disposition home health service (06) | DRG 920 ==
LOC: 2 NORTH 23:31
PROVIDERS: Emergency Medicine; Internal Medicine Cardiovascular Disease; Nurse Practitioner Family; Physician Assistant; Urology; ADMITTING PHYSICIAN Student in an Organized Health Care Education/Training Program; ATTENDING PHYSICIAN Specialist; CONSULT PHYSICIAN Internal Medicine Cardiovascular Disease; EMERGENCY PHYSICIAN Emergency Medicine; FAMILY PHYSICIAN Family Medicine; OTHER PHYSICIAN Surgery
PROC: 30233N1 Transfusion of Nonautologous Red Blood Cells into Peripheral Vein, Percutaneous Approach (ICD-10-PCS; 2025-06-19)
DX: N99.840 Postprocedural hematoma of a genitourinary system organ or structure following a genitourinary system procedure (principal); D62 Acute posthemorrhagic anemia; D68.32 Hemorrhagic disorder due to extrinsic circulating anticoagulants; I50.22 Chronic systolic (congestive) heart failure; K62.5 Hemorrhage of anus and rectum; I11.0 Hypertensive heart disease with heart failure; K59.09 Other constipation; I44.7 Left bundle-branch block, unspecified; I25.10 Atherosclerotic heart disease of native coronary artery without angina pectoris; I48.0 Paroxysmal atrial fibrillation; C61 Malignant neoplasm of prostate; I25.5 Ischemic cardiomyopathy; K21.9 Gastro-esophageal reflux disease without esophagitis; F10.10 Alcohol abuse, uncomplicated; F32.A Depression, unspecified; K80.20 Calculus of gallbladder without cholecystitis without obstruction; F41.9 Anxiety disorder, unspecified; Y83.8 Other surgical procedures as the cause of abnormal reaction of the patient, or of later complication, without mention of misadventure at the time of the procedure; Y92.9 Unspecified place or not applicable; Z95.2 Presence of prosthetic heart valve; Z87.01 Personal history of pneumonia (recurrent); Z79.82 Long term (current) use of aspirin; Z79.01 Long term (current) use of anticoagulants; Z79.899 Other long term (current) drug therapy; Z90.79 Acquired absence of other genital organ(s); Z95.1 Presence of aortocoronary bypass graft; I25.2 Old myocardial infarction; Z86.16 Personal history of COVID-19; Z98.61 Coronary angioplasty status
CPT/HCPCS: 51798; 74177; 80048; 80053; 81003; 81015; 83690; 83735; 85025; 85027; 85610; 86850; 86900; 86901; 86920; 87086; 93005; 96365; 96375; 99285; P9016; Q9967